=== PATIENT | male | born 1950 | race Caucasian/White ===

== ENCOUNTER → 2017-09-15 13:36 | Outpatient (CLI) | payer MEDICARE, OTHER, SELFPAY ==
--- NOTE | 2017-09-15 13:42 | US_ITS ---
STUDY: THYROID ULTRASOUND REASON FOR EXAM: Male, 67 years old. dysphagia TECHNIQUE: Ultrasound evaluation of the thyroid was performed with real-time and static hodges-scale imaging. COMPARISON: None. FINDINGS: RIGHT LOBE: The right lobe of the thyroid gland measures 5.2 x 1.2 x 2.1 cm. There is a homogeneous echotexture. There are no demonstrated solid, cystic or complex lesions. LEFT LOBE: The left lobe of the thyroid gland measures 5.1 x 1.1 x 1.3 cm. There is a homogeneous echotexture. There are no demonstrated solid, cystic or complex lesions. ISTHMUS: The isthmus measures 3 mm . US/Thyroid IMPRESSION: Normal ultrasound examination of the thyroid. Electronically Signed: Timur Torres MD at 23:34 EST , Service support ,
== END ==
PROVIDERS: Family Provider Internal Medicine; PCP Internal Medicine; Visit Provider Internal Medicine
DX: R13.10 Dysphagia, unspecified (principal)
CPT/HCPCS: 76536

== ENCOUNTER → 2017-09-23 08:03 | Outpatient (CLI) | payer MEDICARE, OTHER, SELFPAY ==
--- NOTE | 2017-09-23 08:07 | RAD_ITS ---
STUDY: X-RAY - ESOPHAGUS (BARIUM SWALLOW) WITH FLUOROSCOPY REASON FOR EXAM: Male, 67 years old. Dysphagia for solids. TECHNIQUE: 22 view(s) of the esophagus were obtained following swallowing of barium. FLUOROSCOPY TIME (if supplied): (0:52) minutes/seconds COMPARISON: None. FINDINGS: There is no demonstrated esophageal foreign body. There is no demonstrated stricture or mucosal abnormality. Normal gastroesophageal junction, without a demonstrated hiatal hernia. The patient ingested a 12 mm tablet of barium. There is transient holdup at the gastroesophageal junction. There is atherosclerotic calcification of the aortic arch with tortuosity of the descending aorta. Normal visualized pulmonary parenchyma. There are diffuse degenerative changes of the visualized thoracic spine. RAD/Esophagus Only IMPRESSION: Normal plain film x-ray examination (barium swallow) of the esophagus. Electronically Signed: Artie Gray MD at 10:36 EST Tel [phone], Service support ,
== END ==
PROVIDERS: Family Provider Internal Medicine; PCP Internal Medicine; Visit Provider Internal Medicine
DX: R13.10 Dysphagia, unspecified (principal)
CPT/HCPCS: 74220

== ENCOUNTER → 2017-10-03 10:52 | Outpatient (CLI) | payer MEDICARE, OTHER, SELFPAY ==
--- NOTE | 2017-10-03 10:59 | MRI_ITS ---
STUDY: MRI BRAIN WITH AND WITHOUT CONTRAST (ATTENTION INTERNAL AUDITORY CANALS - I.A.C.'s) REASON FOR EXAM: Male, 67 years old. Gradual hearing loss of the right ear x15 years which is described as almost complete hearing loss now. TECHNIQUE: Standardized multiplanar fat and water weighted pulse sequences were obtained. 10 ml of Gadavist contrast material was administered intravenously for the contrast portion of the examination. COMPARISON: None. FINDINGS: Normal bilateral temporal bones. Normal bilateral internal auditory canals. There is no demonstrated intracanalicular or cisternal vestibular schwannoma (acoustic neuroma). There is no enhancement of the bilateral VIIth or VIIIth cranial nerves. Normal bilateral cochlea, vestibules and semicircular canals. Normal size of the ventricles and extra-axial spaces for the patient's age. There are a limited number of small white matter hyperintensities, distributed throughout the deep white matter tracts of the cerebral hemispheres, consistent with mild chronic white matter ischemic changes. There is no evidence for recent intracranial ischemia or other cause of cytotoxic edema on diffusion weighted imaging (DWI). There is a prominent perivascular space involving the right basal nuclei (axial T2 series 5, image 11). There are smaller bilateral perivascular spaces involving the basal nuclei. Normal thalami. Normal flow voids within the major intracranial circulation suggesting patency by spin echo criteria. Normal venous enhancement. There is no enhancing intra-axial or extra-axial abnormality. There is no extra-axial fluid accumulation. Normal sella turcica, pituitary gland, infundibular stalk, optic chiasm and hypothalamus. Normal tectal plate and pineal gland. Normal midbrain, morales and medulla. Normal cerebellum. Normal basal cisterns. There are bilateral ocular lens implants with otherwise normal intraorbital contents. Normal visualized paranasal sinuses. Normal calvarium and skull base. Normal visualized soft tissue structures. Normal visualized upper cervical spine. MRI/Brain W/WO Contrast IMPRESSION: 1. Normal unenhanced and enhanced MRI of the bilateral internal auditory canals (I.A.C's). 2. Mild chronic white matter ischemic changes of the supratentorial brain. 3. Status post bilateral ocular lens implants. Electronically Signed: Daljit Garcia DO at 14:42 EDT Tel , Service support ,
== END ==
PROVIDERS: Family Provider Internal Medicine; PCP Internal Medicine; Visit Provider Otolaryngology
DX: H93.11 Tinnitus, right ear (principal)
CPT/HCPCS: 70553; A9585

== ENCOUNTER → 2017-10-14 09:23 | Outpatient (CLI) | payer MEDICARE, OTHER, SELFPAY ==
--- NOTE | 2017-10-14 09:26 | CDU_ITS ---
Reason For Study: stenosis Rt. Velocities/BP Lt. Velocities/BP Prox CCA 95.6/30.5 cm/sec. Prox CCA 114/37.5 cm/sec. Mid CCA 99.1/32.2 cm/sec. Mid CCA 107/42.2 cm/sec. Dist CCA 83.8/34.6 cm/sec. Dist CCA 97.3/35.2 cm/sec. Prox ICA 83.8/29.9 cm/sec. Prox ICA 64.5/15.2 cm/sec. Mid ICA 74.5/38.7 cm/sec. Mid ICA 82.1/32.2 cm/sec. Dist ICA 66.7/31.2 cm/sec. Dist ICA 99.1/44.0 cm/sec. Rt. ICA/CCA = .8. Lt. ICA/CCA = .9. Prox ECA 127/29.1 cm/sec. Prox ECA 79.7/24.6 cm/sec. Rt. Vert. 45.7/19.3 cm/sec. Lt. Vert. 52.2/23.2 cm/sec. Right Extracranial There is intimal thickening but no significant atherosclerotic plaque noted in the right common carotid artery. There is heterogeneous, irregular atherosclerotic plaque noted in the right internal carotid artery. There is intimal thickening but no significant atherosclerotic plaque noted in the right external carotid artery. Antegrade flow is noted in the right vertebral artery. Left Extracranial There is intimal thickening but no significant atherosclerotic plaque noted in the left common carotid artery. There is heterogeneous, irregular atherosclerotic plaque noted in the left internal carotid artery. There is intimal thickening but no significant atherosclerotic plaque noted in the left external carotid artery. Antegrade flow is noted in the left vertebral artery. Procedure Carotid Duplex [id number]. The exam was diagnostic. Exam performed in department. Interpretation Summary Mild (<50%) stenosis right extracranial internal carotid. Mild (<50%) stenosis left extracranial internal carotid. Flow within the vertebral arteries is antegrade bilaterally. Ordering Physician: Gertrudis Flowers Performed By: Terence Land RVT
== END ==
PROVIDERS: Family Provider Internal Medicine; PCP Internal Medicine; Visit Provider Internal Medicine
DX: I65.23 Occlusion and stenosis of bilateral carotid arteries (principal)
CPT/HCPCS: 93880

== ENCOUNTER → 2017-12-03 08:42 | Outpatient (CLI) | payer MEDICARE, OTHER, SELFPAY ==
[2017-12-03 10:24] LABS: Absolute Lymphocyte Count 1.52 X10^3/ul (0.83-4.51); Absolute Neutrophil Count 3.4 X10^3/uL (2.0-7.7); Basophil# 0.01 X10^3/uL; Basophil% 0.2 % (0-1); Eosinophil# 0.21 X10^3/uL; Eosinophils% 3.7 % (0-5); Hematocrit 41.6 % (40-54); Hemoglobin 13.9 g/dl (13.0-16.5); Lymphocyte # 1.52 X10^3/ul (4.0); Lymphocyte % 26.8 % (19-41); Mean Corp Hgb Conc 33.4 g/gl (32-36); Mean Corpuscular Hgb 30.3 pg (27.0-32.0); Mean Corpuscular Volume 90.8 fL (80-94); Mean Platelet Vol. 10.6 fl (6.2-12.0); Monocyte# 0.52 X10^3/uL; Monocyte% 9.2 % (0-10); Neutrophil # 3.41 X10^3/uL (2.7-7.7); Neutrophil % 59.9 % (47-70); Platelet Count 277 K/mm3 (150-450); RBC Distribution Width CV 13.3 % (11.6-14.6); RBC Distribution Width SD 43.5 fl (35.1-43.9); Red Blood Count 4.58 M/mm3 (4.6-6.2); White Blood Count 5.7 K/mm3 (4.4-11.0)
[2017-12-03 10:27] LABS: POSITIVE COUNT NO; POSITIVE DIFFERENTIAL NO; POSITIVE MORPHOLOGY NO
[2017-12-03 10:46] LABS: Microalbumin,Random Urine 5.8 mg/L (NO RANGE EST.); Microalbumin:Creatinine Ratio 4.8 mg/g CRE (<30 mg/g CRE)
[2017-12-03 11:03] LABS: ALB/GLOB Ratio 0.9 RATIO (0.9-2.4); AST(SGOT) 26 U/L (15-37); Alanine Aminotransfer ALT/SGPT 54 U/L (16-61); Albumin, Serum 3.6 g/dL (3.2-5.0); Alkaline Phosphatase 85 U/L (45-117); Amylase 138 U/L (25-115); Anion Gap 5 (5-15); BUN 23 mg/dL (7-18); BUN/Creat Ratio 18.7 RATIO (10-20); Calcium,Total 8.9 mg/dL (8.5-10.1); Chloride 109 mmol/L (98-107); Cholesterol 108 mg/dL (200); Creatinine, Serum 1.23 mg/dL (0.70-1.30); EST Glomerular Filtration Rate 62 mL/min (>60); Est Glom Filt Rate - Afr Amer 76 mL/min (>60); Globulin 3.8 g/dL (2.2-4.2); Glucose 101 mg/dL (74-106); High Density Lipoprotein 39 mg/dL; Lipase 216 U/L (73-393); PSA,Total - Annual Screen 1.39 ng/mL (0.00-4.00); Potassium 4.7 mmol/L (3.5-5.1); Protein, Total 7.4 g/dL (6.4-8.2); Sodium Level 140 mmol/L (136-145); Triglycerides 76 mg/dL; Very Low Density Lipoprotein 15 mg/dL (5-40)
[2017-12-03 11:53] LABS: Vitamin B12 599 pg/mL (211-911)
[2017-12-04 09:52] LABS: AFP, Tumor Marker 2.4 ng/mL (0.0-8.3); Hep C Antibodies <0.1 s/co ratio (0.0-0.9)
== END ==
PROVIDERS: Family Provider Internal Medicine; PCP Internal Medicine; Visit Provider Internal Medicine
DX: R20.9 Unspecified disturbances of skin sensation (principal); K76.0 Fatty (change of) liver, not elsewhere classified; E78.00 Pure hypercholesterolemia, unspecified; R73.09 Other abnormal glucose; R74.8 Abnormal levels of other serum enzymes; Z11.59 Encounter for screening for other viral diseases; Z12.5 Encounter for screening for malignant neoplasm of prostate
CPT/HCPCS: 36415; 80053; 80061; 82043; 82105; 82150; 82570; 82607; 83690; 84153; 85025; 86803; G0103

== ENCOUNTER → 2018-04-08 09:06 | Outpatient (CLI) | payer MEDICARE, OTHER, SELFPAY ==
[2018-04-08 10:37] LABS: Hemoglobin A1c 5.8 % (4.2-6.3)
[2018-04-08 11:05] LABS: ALB/GLOB Ratio 0.9 RATIO (0.9-2.4); AST(SGOT) 20 U/L (15-37); Alanine Aminotransfer ALT/SGPT 47 U/L (16-61); Albumin, Serum 3.6 g/dL (3.2-5.0); Alkaline Phosphatase 98 U/L (45-117); Anion Gap 9 (5-15); BUN 21 mg/dL (7-18); BUN/Creat Ratio 16.8 RATIO (10-20); Calcium,Total 9.2 mg/dL (8.5-10.1); Chloride 107 mmol/L (98-107); Cholesterol 102 mg/dL (200); Creatinine, Serum 1.25 mg/dL (0.70-1.30); EST Glomerular Filtration Rate 61 mL/min (>60); Est Glom Filt Rate - Afr Amer 74 mL/min (>60); Globulin 4.1 g/dL (2.2-4.2); Glucose 96 mg/dL (74-106); High Density Lipoprotein 37 mg/dL; Potassium 4.2 mmol/L (3.5-5.1); Protein, Total 7.7 g/dL (6.4-8.2); Sodium Level 138 mmol/L (136-145); Triglycerides 67 mg/dL; Very Low Density Lipoprotein 13 mg/dL (5-40)
== END ==
PROVIDERS: Family Provider Internal Medicine; PCP Internal Medicine; Visit Provider Internal Medicine
DX: I10 Essential (primary) hypertension (principal); E78.00 Pure hypercholesterolemia, unspecified; R73.09 Other abnormal glucose
CPT/HCPCS: 36415; 80053; 80061; 83036

== ENCOUNTER → 2018-09-21 08:35 | Outpatient (CLI) | payer MEDICARE, OTHER, SELFPAY ==
--- NOTE | 2018-09-21 08:42 | CDU_ITS ---
Reason For Study: Carotid stenosis Rt. Velocities/BP Lt. Velocities/BP Prox CCA 93.2/25.2 cm/sec. Prox CCA 113.0/31.1 cm/sec. Mid CCA 116.0/32.8 cm/sec. Mid CCA 105.0/27.0 cm/sec. Dist CCA 88.5/28.1 cm/sec. Dist CCA 93.2/28.1 cm/sec. Prox ICA 69.8/22.3 cm/sec. Prox ICA 73.9/25.8 cm/sec. Mid ICA 80.3/32.2 cm/sec. Mid ICA 68.6/28.1 cm/sec. Dist ICA 75.0/27.0 cm/sec. Dist ICA 92.6/34.0 cm/sec. Rt. ICA/CCA = .69. Lt. ICA/CCA = .88. Prox ECA 101.0/18.8 cm/sec. Prox ECA 80.9/19.9 cm/sec. Rt. Vert. 42.8/13.5 cm/sec. Lt. Vert. 46.9/17.0 cm/sec. Right Extracranial There is intimal thickening but no significant atherosclerotic plaque noted in the right common carotid artery. There is heterogeneous, irregular atherosclerotic plaque noted in the right internal carotid artery. There is no significant atherosclerotic plaque noted in the right external carotid artery. Antegrade flow is noted in the right vertebral artery. Left Extracranial There is intimal thickening but no significant atherosclerotic plaque noted in the left common carotid artery. There is heterogeneous, irregular atherosclerotic plaque noted in the left internal carotid artery. There is no significant atherosclerotic plaque noted in the left external carotid artery. Antegrade flow is noted in the left vertebral artery. Procedure Carotid Duplex [id number]. Exam performed in department. Interpretation Summary Mild (<50%) stenosis right extracranial internal carotid. Mild (<50%) stenosis left extracranial internal carotid. Flow within the vertebral arteries is antegrade bilaterally. Ordering Physician: Gertrudis Flowers Referring Physician: Gertrudis Flowers Performed By: Shannan Osullivan RVT
--- NOTE | 2018-09-21 09:02 | US_ITS ---
STUDY: ABDOMINAL ULTRASOUND - RIGHT UPPER QUADRANT REASON FOR VISIT: Male, 68 years old. Fatty liver. TECHNIQUE: Ultrasound evaluation of the right upper quadrant was performed with real-time and static hodges-scale imaging. TECHNICAL QUALITY: Adequate. COMPARISON: None. FINDINGS: Liver: The liver measures 15.6 cm. There is increased echogenicity consistent with fatty infiltration. The bile ducts are within normal limits. There is hepatic color flow. The direction of portal flow is hepatopetal. There is no demonstrated mass lesion. Gallbladder: Normal distended gallbladder. The gallbladder wall measures 2.2 mm. There is a negative sonographic Mittal's sign. There is no pericholecystic fluid. There are no gallstones. Common Bile Duct (C.B.D.): The common bile duct measures 3.3 mm. Pancreas: Normal size of the head, body and tail of the pancreas. There is normal echogenicity of the pancreas. There is no demonstrated pancreatic mass or cyst. Right Kidney: Normal size of the right kidney. The right kidney measures 10.3 cm. Normal renal cortex. The right cortex measures 1.3 cm. There is no demonstrated renal mass or cyst. There is no right hydronephrosis. US/Liver IMPRESSION: Normal right upper quadrant ultrasound examination. Electronically Signed: Dontrell Wright DO at 22:39 EST Tel [phone], Service support ,
== END ==
PROVIDERS: Family Provider Internal Medicine; PCP Internal Medicine; Referring Provider Internal Medicine; Visit Provider Internal Medicine
DX: I65.23 Occlusion and stenosis of bilateral carotid arteries (principal); K76.0 Fatty (change of) liver, not elsewhere classified
CPT/HCPCS: 76705; 93880

== ENCOUNTER → 2018-09-22 12:50 | Outpatient (CLI) | payer SELFPAY ==
--- NOTE | 2018-09-22 13:02 | CT_ITS ---
STUDY: CT CHEST WITHOUT CONTRAST REASON FOR EXAM: Male, 68 years old. Elevated cholesterol. Calcium scoring examination. Radiological over read examination. TECHNIQUE: Transaxial imaging was performed without the administration of intravenous contrast material. Individualized dose optimization techniques were used for this CT. COMPARISON: None. FINDINGS: Minimal increased linear markings in the posterior medial segment of the right lower lobe suggestive scarring. There is no demonstrated pleural abnormality. There are calcifications of the coronary arteries. There are multiple small lymph nodes within the mediastinum, which are normal in size and morphology most compatible with reactive lymph hyperplasia. Normal hilar regions. Normal unenhanced pulmonary arteries. There is atherosclerotic calcification of the aortic arch . There are multi-level degenerative changes of the thoracic spine. There is no demonstrated abnormality of the visualized upper abdomen. CT/Limited Chest CT w/CCTA IMPRESSION: Coronary artery calcification. Findings suggestive of mild scarring at the right lung base. Electronically Signed: Artie Gray, at 15:56 EST , Service support ,
[2018-09-22 13:36] VITALS: BP 124/69; PULSE 50; RESP 16; O2SAT 95; BMI 33.0
--- NOTE | 2018-09-22 15:12 | CA.SCORE ---
Calcium Scoring Date of Study:: 09/22/18 Coronary Calcium Scoring: Coronary calcium scoring. 68-year-old man with a history of hypertension. High-resolution computed tomographic imaging of the chest was performed on 09/22/2018 with particular attention paid to the coronary arteries. Images from the examination were analyzed for the presence and extent of coronary artery calcification using the coronary consultation quantification software. The patient tolerated the procedure well there were no complications. The results of the coronary calcification analysis are provided. Coronary artery Left main 9.9 Left anterior descending artery 183 Left circumflex artery 29 Right coronary artery 3 Total Agaston score to 25. The above has a percentile ranking of between 50 and 75%. The total calcium score suggest that there is moderate plaque burden with nonobstructive coronary disease likely.
== END ==
PROVIDERS: Family Provider Internal Medicine; PCP Internal Medicine; Referring Provider Internal Medicine; Visit Provider Internal Medicine
DX: E78.5 Hyperlipidemia, unspecified (principal)
CPT/HCPCS: 75571; 76380

== ENCOUNTER → 2018-12-10 10:36 | Outpatient (CLI) | payer MEDICARE, OTHER, SELFPAY ==
[2018-09-22 13:36] VITALS: BMI 33.0
[2018-12-10 12:43] LABS: Absolute Lymphocyte Count 1.47 X10^3/ul (0.83-4.51); Absolute Neutrophil Count 4.8 X10^3/uL (2.0-7.7); Basophil# 0.01 X10^3/uL; Basophil% 0.1 % (0-1); Eosinophil# 0.22 X10^3/uL; Eosinophils% 3.1 % (0-5); Hematocrit 42.7 % (40-54); Hemoglobin 14.6 g/dl (13.0-16.5); Lymphocyte # 1.47 X10^3/ul (4.0); Lymphocyte % 20.4 % (19-41); Mean Corp Hgb Conc 34.2 g/gl (32-36); Mean Corpuscular Hgb 30.4 pg (27.0-32.0); Mean Platelet Vol. 10.7 fl (6.2-12.0); Monocyte% 9.7 % (0-10); Neutrophil # 4.77 X10^3/uL (2.7-7.7); Neutrophil % 66.4 % (47-70); Platelet Count 304 K/mm3 (150-450); RBC Distribution Width CV 13.3 % (11.6-14.6); White Blood Count 7.2 K/mm3 (4.4-11.0)
[2018-12-10 12:50] LABS: AST(SGOT) 47 U/L (15-37); Alanine Aminotransfer ALT/SGPT 74 U/L (16-61); Albumin, Serum 3.8 g/dL (3.2-5.0); Alkaline Phosphatase 88 U/L (45-117); Anion Gap 5 (5-15); BUN 24 mg/dL (7-18); BUN/Creat Ratio 16.1 RATIO (10-20); Calcium,Total 9.2 mg/dL (8.5-10.1); Chloride 110 mmol/L (98-107); Cholesterol 131 mg/dL (200); Creatinine, Serum 1.49 mg/dL (0.70-1.30); EST Glomerular Filtration Rate 50 mL/min (>60); Est Glom Filt Rate - Afr Amer 60 mL/min (>60); Glucose 108 mg/dL (74-106); High Density Lipoprotein 42 mg/dL; PSA,Total - Annual Screen 1.58 ng/mL (0.00-4.00); Potassium 4.2 mmol/L (3.5-5.1); Protein, Total 7.8 g/dL (6.4-8.2); Sodium Level 137 mmol/L (136-145); Triglycerides 67 mg/dL; Very Low Density Lipoprotein 13 mg/dL (5-40)
[2018-12-10 12:56] LABS: Hemoglobin A1c 6.1 % (4.2-6.3)
[2018-12-10 13:02] LABS: POSITIVE COUNT NO; POSITIVE DIFFERENTIAL NO; POSITIVE MORPHOLOGY NO
== END ==
PROVIDERS: Family Provider Internal Medicine; PCP Internal Medicine; Referring Provider Internal Medicine; Visit Provider Internal Medicine
DX: I10 Essential (primary) hypertension (principal); E78.00 Pure hypercholesterolemia, unspecified; R73.09 Other abnormal glucose; Z12.5 Encounter for screening for malignant neoplasm of prostate
CPT/HCPCS: 36415; 80053; 80061; 83036; 84153; 85025; G0103

== ENCOUNTER → 2018-12-28 06:28 | Outpatient (CLI) | payer MEDICARE, OTHER, SELFPAY ==
[2018-09-22 13:36] VITALS: BMI 33.0
--- NOTE | 2018-12-28 14:20 | STRESSREP ---
Stress Test Report Exercise myocardial perfusion stress test. 68-year-old man with a history of chest pain. Stress protocol: Resting EKG demonstrates normal sinus rhythm with a rate of 61 bpm normal intervals are noted resting blood pressure 140/88 mmHg. The patient exercised according to regular Calixto protocol for total duration of 9 minutes completing stage III of the Calixto protocol the maximum heart rate attained was 134 bpm which was 87% of maximum predicted heart rate the maximum workload was 10.1 metabolic equivalents. Patient maintained sinus rhythm throughout the recording. At rest there were no ST or T wave changes noted suggest ischemia peak exercise upsloping ST changes only were noted with no meet the criteria for ischemia. No clinical angina was noted. The resting blood pressures 140/88 with a peak blood pressure 184/72 mmHg. Rate pressure product was 24,600. Myocardial perfusion protocol. 14.7 mCi of technetium 99m sestamibi was injected at rest. The patient exercised according to regular Calixto protocol. At peak exercise 43.9 mCi of technetium 99m sestamibi was injected stress images were obtained stress and rest images were reconstructed and compared in the short axis vertical and horizontal long hospital. Gated images were also obtained per Perfusion SPECT analysis: Review of the stress images demonstrate normal uptake of tracer noted in all areas of myocardium. The resting images similarly demonstrate normal uptake of tracer noted in all areas of myocardium. No areas of reversibility are noted suggest ischemia Gated SPECT analysis: The gated ejection fraction is noted to be 67%. Conclusion: Normal exercise myocardial perfusion stress test at a high workload. No clinical angina noted. Preserved ejection fraction.
== END ==
PROVIDERS: Family Provider Internal Medicine; PCP Internal Medicine; Referring Provider Internal Medicine; Visit Provider Internal Medicine
DX: R06.09 Other forms of dyspnea (principal)
CPT/HCPCS: 78452; 93017; A9500; A4216

== ENCOUNTER → 2019-03-17 08:52 | Outpatient (CLI) | payer MEDICARE, OTHER, SELFPAY ==
[2018-09-22 13:36] VITALS: BMI 33.0
[2019-03-17 09:00] LABS: Bacteria 0 SEEN /hpf (None Seen); Mucous, Urine 0 SEEN /hpf (<or=2+); Red Blood Cells-Urine 0 SEEN /hpf (0-5); Squamous Epithelial Cells - UA 0 SEEN /hpf (0-5); White Blood Cells 0 SEEN /hpf (0-5)
[2019-03-17 09:59] LABS: Color, Urine Yellow (Yellow); Glucose, Dipstick Normal (Normal); Ketone-Dipstick Negative (Negative); Leukocyte Esterase-Dipstick Negative /ul (Negative); Nitrite-Dipstick Negative (Negative); Occult Blood-Urine Negative /ul (Negative); Protein-Dipstick Negative (Negative); Specific Gravity, Urine 1.015 (1.002-1.030); Urine Bilirubin Dipstick Negative (Negative); Urine Clarity Clear (Clear); Urine Urobilinogen Normal (Normal)
[2019-03-17 10:08] LABS: Absolute Lymphocyte Count 1.55 X10^3/uL (0.83-4.51); Absolute Neutrophil Count 3.3 X10^3/uL (2.0-7.7); Basophil# 0.04 X10^3/uL; Basophil% 0.7 % (0-1); Eosinophil# 0.22 X10^3/uL; Eosinophils% 3.9 % (0-5); Hematocrit 41.8 % (40-54); Hemoglobin 14.2 g/dL (13.0-16.5); Lymphocyte # 1.55 X10^3/ul (4.0); Lymphocyte % 27.8 % (19-41); Mean Corpuscular Hgb 31.3 pg (27.0-32.0); Mean Corpuscular Volume 92.3 fL (80-94); Mean Platelet Vol. 10.5 fl (6.2-12.0); Monocyte# 0.45 X10^3/uL; Monocyte% 8.1 % (0-10); NRBC Flagged by Analyzer 0 % (0-5); Neutrophil # 3.31 X10^3/uL (2.7-7.7); Neutrophil % 59.3 % (47-70); Platelet Count 253 K/mm3 (150-450); RBC Distribution Width CV 12.8 % (11.6-14.6); RBC Distribution Width SD 43.8 fl (35.1-43.9); Red Blood Count 4.53 M/mm3 (4.6-6.2); White Blood Count 5.6 K/mm3 (4.4-11.0)
[2019-03-17 10:19] LABS: AST(SGOT) 38 U/L (15-37); Alanine Aminotransfer ALT/SGPT 71 U/L (16-61); Albumin, Serum 3.6 g/dL (3.2-5.0); Alkaline Phosphatase 80 U/L (45-117); Anion Gap 7 (5-15); BUN 18 mg/dL (7-18); BUN/Creat Ratio 14.5 RATIO (10-20); Calcium,Total 8.7 mg/dL (8.5-10.1); Chloride 111 mmol/L (98-107); Cholesterol 110 mg/dL (200); Creatinine, Serum 1.24 mg/dL (0.70-1.30); EST Glomerular Filtration Rate 62 mL/min (>60); Est Glom Filt Rate - Afr Amer 75 mL/min (>60); Globulin 3.5 g/dL (2.2-4.2); Glucose 103 mg/dL (74-106); High Density Lipoprotein 39 mg/dL; Potassium 4.6 mmol/L (3.5-5.1); Protein, Total 7.1 g/dL (6.4-8.2); Sodium Level 142 mmol/L (136-145); Triglycerides 54 mg/dL; Very Low Density Lipoprotein 11 mg/dL (5-40)
[2019-03-17 10:23] LABS: Hemoglobin A1c 5.9 % (4.2-6.3)
[2019-03-18 13:05] LABS: AFP, Tumor Marker 1.8 ng/mL (0.0-8.3)
== END ==
PROVIDERS: Family Provider Internal Medicine; PCP Internal Medicine; Referring Provider Internal Medicine; Visit Provider Internal Medicine
DX: R73.09 Other abnormal glucose (principal); E78.00 Pure hypercholesterolemia, unspecified; I10 Essential (primary) hypertension; K76.0 Fatty (change of) liver, not elsewhere classified
CPT/HCPCS: 36415; 80053; 80061; 81001; 82105; 83036; 85025

== ENCOUNTER → 2019-05-21 14:41 | Outpatient (CLI) | payer MEDICARE, OTHER, SELFPAY ==
[2018-09-22 13:36] VITALS: BMI 33.0
--- NOTE | 2019-05-21 14:56 | CT_ITS ---
STUDY: CT BRAIN WITH AND WITHOUT CONTRAST REASON FOR EXAM: Male, 69 years old. Headache for one week. RADIATION DOSAGE (If Supplied By Facility): CTDIvol = ( 44.99 ) mGy, DLP = ( 1682.21 ) mGycm TECHNIQUE: Transaxial CT imaging of the brain was performed pre and post contrast administration. The examination was performed with intravenous administration of IV Isovue 370 50. Individualized dose optimization techniques were used for this CT. COMPARISON: MRI of the brain, October 03, 2017. FINDINGS: Normal soft tissue structures. Normal calvarium. Normal size ventricles and extra-axial spaces for the patient's age. Normal white matter tracts of the cerebral hemispheres. Normal basal ganglia and thalami. Normal brainstem. Normal cerebellum. There is no intracranial hemorrhage. There are no findings of an acute ischemic infarction. There is no evidence for abnormal enhancement. The visualized vasculature appears grossly normal. Normal visualized paranasal sinuses. CT/Brain/Head W/WO Contrast IMPRESSION: Normal unenhanced and enhanced CT scan of the brain. Electronically Signed: Dontrell Wright DO at 17:15 EDT Tel [phone], Service support ,
[2019-05-21 15:01] LABS: Absolute Lymphocyte Count 1.83 X10^3/uL (0.83-4.51); Absolute Neutrophil Count 7.9 X10^3/uL (2.0-7.7); Basophil# 0.03 X10^3/uL; Basophil% 0.3 % (0-1); Eosinophil# 0.22 X10^3/uL; Hematocrit 44.4 % (40-54); Hemoglobin 15.2 g/dL (13.0-16.5); Lymphocyte # 1.83 X10^3/ul (4.0); Lymphocyte % 16.7 % (19-41); Mean Corp Hgb Conc 34.2 g/dL (32-36); Mean Corpuscular Volume 90.6 fL (80-94); Mean Platelet Vol. 10.2 fl (6.2-12.0); Monocyte# 0.96 X10^3/uL; Monocyte% 8.7 % (0-10); NRBC Flagged by Analyzer 0 % (0-5); Neutrophil # 7.92 X10^3/uL (2.7-7.7); Platelet Count 282 K/mm3 (150-450); RBC Distribution Width CV 12.7 % (11.6-14.6); RBC Distribution Width SD 41.4 fl (35.1-43.9)
[2019-05-21 15:21] LABS: CREATININE FINGERSTICK 1.1 mg/dL (0.70-1.30)
[2019-05-21 15:23] LABS: AST(SGOT) 30 U/L (15-37); Alanine Aminotransfer ALT/SGPT 64 U/L (16-61); Alkaline Phosphatase 82 U/L (45-117); Anion Gap 8 (5-15); BUN 20 mg/dL (7-18); Calcium,Total 9.5 mg/dL (8.5-10.1); Chloride 106 mmol/L (98-107); Creatinine, Serum 1.25 mg/dL (0.70-1.30); EST Glomerular Filtration Rate 61 mL/min (>60); Est Glom Filt Rate - Afr Amer 74 mL/min (>60); Globulin 3.9 g/dL (2.2-4.2); Glucose 90 mg/dL (74-106); Potassium 4.2 mmol/L (3.5-5.1); Protein, Total 7.9 g/dL (6.4-8.2); Sodium Level 136 mmol/L (136-145); Thyroid Stim Hormone (TSH) 2.35 uIU/mL (0.358-3.74)
== END ==
PROVIDERS: Family Provider Internal Medicine; PCP Internal Medicine; Referring Provider Internal Medicine; Visit Provider Internal Medicine
DX: R51 Headache (principal); M54.2 Cervicalgia; I10 Essential (primary) hypertension
CPT/HCPCS: 36415; 70470; 80053; 84443; 84484; 85025; Q9967

== ENCOUNTER → 2019-05-31 08:42 | Outpatient (CLI) | payer MEDICARE, OTHER, SELFPAY ==
[2018-09-22 13:36] VITALS: BMI 33.0
--- NOTE | 2019-05-31 08:58 | RDU_ITS ---
Reason For Study: HTN Right Renal Artery Left Renal Artery Right renal artery ostium 101/20 Left renal artery ostium 117/27 RSV/EDV. PSV/EDV. Right renal artery proximal 104/20 Left renal artery proximal PSV/EDV PSV/EDV. 130/38 . Right renal artery mid 137/33 Left renal artery mid 147/41 PSV/EDV. PSV/EDV . Right renal artery distal 105/22 Left renal artery distal 133/41 PSV/EDV. PSV/EDV. Right Renal Parenchyma Left Renal Parenchyma Upper Pole Medula 31/11 PSV/EDV. Left upper pole medulla 34/12 Right upper pole medulla EDR 0.35 . PSV/EDV . Right upper pole medulla R.I. Left upper pole medulla EDR 0.35 . 0.63 . Left upper pole medulla R.I. 0.65 . Upper Dar Cortx 24/9 PSV/EDV. UP Cortex 26/11 PSV/EDV. Right upper pole cortex EDR 0.38 . Left upper pole cortex EDR 0.42 . Right upper pole cortex R.I. 0.62 . Left upper pole cortex R.I. 0.59 . Right lower Pole medulla 23/8 Left lower Pole medulla 26/11 PSV/EDV . PSV/EDV . Right lower pole medulla EDR 0.35 . Left lower pole medulla EDR 0.42 . Right lower pole medulla R.I. Left lower pole medulla R.I. 0.58 . 0.64 . Lower Pole Cortx 23/9 PSV/EDV. Lower Pole Cortex 26/8 PSV/EDV. Left lower pole cortex EDR 0.39 . Right lower pole cortex EDR 0.31 . Left lower pole cortex R.I. 0.61 . Right lower pole cortex R.I. 0.70 . Left Renal Hilar Right Renal Hilar LT Hilar avg 94/27 PSV/EDV . Right Hilar avg 90/22 PSV/EDV. Left hilar acceleration time 70 Right hilar acceleration time 40 m/sec. m/sec. Left Renal Dimensions Right Renal Dimensions Left kidney size 10.49 cm . Right kidney size 10.52 cm . Left cortical dimension 0.98 cm . Right cortical dimension 1.0 cm . Aorta Proximal abdominal aorta 2.03cm x 2.03 cm . Proximal abdominal aorta peak systolic velocity is 102 cm/sec . Distal abdominal aorta 1.61cm x 1.69 cm . Distal abdominal aorta peak systolic velocity is 111 cm/sec . Interpretation Summary Normal aorta 2.03 x 2.03 0-59% stenosis bilateral renal arteries Right kidney length 10.5 cm Left kidney length 10.5 cm Normal bilateral renal resistivity indices Ordering Physician: Gertrudis Flowers Referring Physician: Gertrudis Flowers Performed By: Bárbara Spangler, PA, RVT
--- NOTE | 2019-05-31 09:18 | MRI_ITS ---
STUDY: MRI BRAIN WITH AND WITHOUT CONTRAST REASON FOR EXAM: Male, 69 years old. HEADACHE,, CHRONIC HEARING LOSS. TECHNIQUE: Standardized multiplanar fat and water weighted pulse sequences were obtained. IV Dotarem 20 was administered for the contrast portion of the examination. COMPARISON: October 03, 2017 FINDINGS: Normal size of the ventricles and extra-axial spaces for the patient's age. There are multiple white matter hyperintensities, distributed throughout the deep white matter tracts of the cerebral hemispheres, consistent with mild chronic white matter ischemic changes. Normal bilateral basal ganglia. Normal thalami. There is no extra-axial fluid accumulation. Normal flow voids within the major intracranial circulation suggesting patency by spin echo criteria. Normal venous enhancement. There is no enhancing intra-axial or extra-axial abnormality. Normal sella turcica, pituitary gland, infundibular stalk, optic chiasm and hypothalamus. Normal tectal plate and pineal gland. Normal midbrain, morales and medulla. Normal cerebellum. Normal basal cisterns. Normal bilateral temporal bones. Normal bilateral internal auditory canals. No demonstrated orbital abnormality, within the constraints of a routine brain study. MRI/Brain W/WO Contrast IMPRESSION: No acute intracranial abnormality or masses. Mild chronic microvascular ischemic changes. Electronically Signed: Edith Drake MD at 8:06 EST Tel , Service support ,
== END ==
PROVIDERS: Family Provider Internal Medicine; PCP Internal Medicine; Referring Provider Internal Medicine; Visit Provider Internal Medicine
DX: I10 Essential (primary) hypertension (principal); R51 Headache
CPT/HCPCS: 70553; 93975; A9575

== ENCOUNTER → 2019-06-22 09:04 | Outpatient (CLI) | payer MEDICARE, OTHER, SELFPAY ==
[2018-09-22 13:36] VITALS: BMI 33.0
[2019-06-22 12:49] LABS: Absolute Lymphocyte Count 2.16 X10^3/uL (0.83-4.51); Absolute Neutrophil Count 4.4 X10^3/uL (2.0-7.7); Basophil# 0.04 X10^3/uL; Basophil% 0.5 % (0-1); Eosinophil# 0.24 X10^3/uL; Eosinophils% 3.2 % (0-5); Hematocrit 43.9 % (40-54); Hemoglobin 14.7 g/dL (13.0-16.5); Lymphocyte # 2.16 X10^3/ul (4.0); Mean Corp Hgb Conc 33.5 g/dL (32-36); Mean Corpuscular Hgb 30.9 pg (27.0-32.0); Mean Corpuscular Volume 92.2 fL (80-94); Mean Platelet Vol. 10.9 fl (6.2-12.0); Monocyte# 0.58 X10^3/uL; Monocyte% 7.8 % (0-10); NRBC Flagged by Analyzer 0 % (0-5); Neutrophil # 4.43 X10^3/uL (2.7-7.7); Neutrophil % 59.4 % (47-70); Platelet Count 248 K/mm3 (150-450); RBC Distribution Width CV 12.7 % (11.6-14.6); Red Blood Count 4.76 M/mm3 (4.6-6.2); White Blood Count 7.5 K/mm3 (4.4-11.0)
[2019-06-22 12:51] LABS: Microalbumin,Random Urine 20.8 mg/L (NO RANGE EST.); Microalbumin:Creatinine Ratio 11.6 mg/g CRE (<30 mg/g CRE)
[2019-06-22 12:56] LABS: ALB/GLOB Ratio 0.9 RATIO (0.9-2.4); AST(SGOT) 45 U/L (15-37); Alanine Aminotransfer ALT/SGPT 92 U/L (16-61); Albumin, Serum 3.7 g/dL (3.2-5.0); Alkaline Phosphatase 88 U/L (45-117); Anion Gap 3 (5-15); BUN 18 mg/dL (7-18); BUN/Creat Ratio 14.5 RATIO (10-20); Calcium,Total 8.9 mg/dL (8.5-10.1); Chloride 106 mmol/L (98-107); Cholesterol 123 mg/dL (200); Creatinine, Serum 1.24 mg/dL (0.70-1.30); EST Glomerular Filtration Rate 62 mL/min (>60); Est Glom Filt Rate - Afr Amer 75 mL/min (>60); Globulin 3.9 g/dL (2.2-4.2); Glucose 94 mg/dL (74-106); High Density Lipoprotein 40 mg/dL; Potassium 4.4 mmol/L (3.5-5.1); Protein, Total 7.6 g/dL (6.4-8.2); Sodium Level 138 mmol/L (136-145); Triglycerides 70 mg/dL; Very Low Density Lipoprotein 14 mg/dL (5-40)
[2019-06-22 12:57] LABS: Hemoglobin A1c 6.1 % (4.2-6.3)
== END ==
PROVIDERS: Family Provider Internal Medicine; PCP Internal Medicine; Referring Provider Internal Medicine; Visit Provider Internal Medicine
DX: E78.00 Pure hypercholesterolemia, unspecified (principal); I10 Essential (primary) hypertension; R73.09 Other abnormal glucose
CPT/HCPCS: 36415; 80053; 80061; 82043; 82570; 83036; 85025

== ENCOUNTER → 2020-01-11 10:14 | Outpatient (CLI) | payer MEDICARE, OTHER, SELFPAY ==
[2018-09-22 13:36] VITALS: BMI 33.0
[2020-01-11 10:24] LABS: Bacteria 0 SEEN /hpf (None Seen); Mucous, Urine 0 SEEN /hpf (<or=2+); Red Blood Cells-Urine 0 SEEN /hpf (0-5); Squamous Epithelial Cells - UA 0 SEEN /hpf (0-5); White Blood Cells 0 SEEN /hpf (0-5)
[2020-01-11 12:44] LABS: Absolute Lymphocyte Count 2.21 X10^3/uL (0.83-4.51); Basophil# 0.03 X10^3/uL; Basophil% 0.4 % (0-1); Eosinophil# 0.25 X10^3/uL; Eosinophils% 3.5 % (0-5); Hematocrit 40.9 % (40-54); Hemoglobin 13.8 g/dL (13.0-16.5); Lymphocyte # 2.21 X10^3/ul (4.0); Lymphocyte % 30.7 % (19-41); Mean Corp Hgb Conc 33.7 g/dL (32-36); Mean Corpuscular Volume 91.9 fL (80-94); Mean Platelet Vol. 10.4 fl (6.2-12.0); Monocyte# 0.65 X10^3/uL; NRBC Flagged by Analyzer 0 % (0-5); Neutrophil # 4.03 X10^3/uL (2.7-7.7); Neutrophil % 56.1 % (47-70); Platelet Count 345 K/mm3 (150-450); RBC Distribution Width CV 12.7 % (11.6-14.6); Red Blood Count 4.45 M/mm3 (4.6-6.2); White Blood Count 7.2 K/mm3 (4.4-11.0)
[2020-01-11 12:46] LABS: Color, Urine Yellow (Yellow); Glucose, Dipstick Normal (Normal); Ketone-Dipstick Negative (Negative); Leukocyte Esterase-Dipstick Negative /ul (Negative); Nitrite-Dipstick Negative (Negative); Occult Blood-Urine Negative /ul (Negative); Protein-Dipstick Negative (Negative); Specific Gravity, Urine 1.015 (1.002-1.030); Urine Bilirubin Dipstick Negative (Negative); Urine Clarity Clear (Clear); Urine Urobilinogen Normal (Normal)
[2020-01-11 13:03] LABS: Hemoglobin A1c 6.3 % (3.8-5.6)
[2020-01-11 13:06] LABS: ALB/GLOB Ratio 0.9 RATIO (0.9-2.4); AST(SGOT) 32 U/L (15-37); Alanine Aminotransfer ALT/SGPT 71 U/L (16-61); Albumin, Serum 3.9 g/dL (3.2-5.0); Alkaline Phosphatase 92 U/L (45-117); Anion Gap 8 (5-15); BUN 30 mg/dL (7-18); BUN/Creat Ratio 19.2 RATIO (10-20); Calcium,Total 9.6 mg/dL (8.5-10.1); Chloride 103 mmol/L (98-107); Cholesterol 112 mg/dL (200); Creatinine, Serum 1.56 mg/dL (0.70-1.30); EST Glomerular Filtration Rate 47 mL/min (>60); Est Glom Filt Rate - Afr Amer 57 mL/min (>60); Globulin 4.2 g/dL (2.2-4.2); Glucose 113 mg/dL (74-106); High Density Lipoprotein 38 mg/dL; PSA,Total - Annual Screen 2.29 ng/mL (0.00-4.00); Potassium 4.4 mmol/L (3.5-5.1); Protein, Total 8.1 g/dL (6.4-8.2); Sodium Level 135 mmol/L (136-145); Triglycerides 86 mg/dL; Very Low Density Lipoprotein 17 mg/dL (5-40)
[2020-01-11 13:07] LABS: Microalbumin,Random Urine 9.5 mg/L (NO RANGE EST.); Microalbumin:Creatinine Ratio 6.6 mg/g CRE (<30 mg/g CRE)
[2020-01-12 06:19] LABS: AFP, Tumor Marker 2.1 ng/mL (0.0-8.3)
== END ==
PROVIDERS: PCP Internal Medicine; Referring Provider Internal Medicine; Visit Provider Internal Medicine
DX: R73.09 Other abnormal glucose (principal); K76.0 Fatty (change of) liver, not elsewhere classified; E78.00 Pure hypercholesterolemia, unspecified; I10 Essential (primary) hypertension; Z12.5 Encounter for screening for malignant neoplasm of prostate
CPT/HCPCS: 36415; 80053; 80061; 81001; 82043; 82105; 82570; 83036; 84153; 85025; G0103

== ENCOUNTER → 2020-01-31 08:06 | Outpatient (CLI) | payer MEDICARE, OTHER, SELFPAY ==
[2018-09-22 13:36] VITALS: BMI 33.0
--- NOTE | 2020-01-31 08:09 | US_ITS ---
STUDY: ABDOMINAL ULTRASOUND - RIGHT UPPER QUADRANT REASON FOR VISIT: Male, 69 years old FATTY LIVER TECHNIQUE: Ultrasound evaluation of the right upper quadrant was performed with real-time and static hodges-scale imaging. TECHNICAL QUALITY: Adequate. COMPARISON: Comparison is made with prior sonogram dated September 21, 2018. FINDINGS: Liver: The liver measures 16.5 cm. There is increased echogenicity consistent with fatty infiltration. The bile ducts are within normal limits. There is hepatic color flow. The direction of portal flow is hepatopetal. There is no demonstrated mass lesion. Gallbladder: Normal distended gallbladder. The gallbladder wall measures 2.5 mm. There is a negative sonographic Mittal''s sign. There is no pericholecystic fluid. There are no gallstones. Common Bile Duct (C.B.D.): The common bile duct measures 3.9 mm. Pancreas: Normal size of the head, body and tail of the pancreas. There is increased echogenicity of the pancreas. There is no demonstrated pancreatic mass or cyst. Right Kidney: Normal size of the right kidney. The right kidney measures 10.3 cm x 5.6 cm x 5.2 cm. Normal renal cortex. The right cortex measures 1.6 cm. There is no demonstrated renal mass or cyst. There is no right hydronephrosis. US/Liver IMPRESSION: Fatty infiltration of the liver. Electronically Signed: Artie Gray, at 12:18 EDT , Service support ,
--- NOTE | 2020-01-31 08:53 | CDU_ITS ---
Reason For Study: STENOSIS Rt. Velocities/BP Lt. Velocities/BP Prox CCA 82/25 cm/sec. Prox CCA 124/38 cm/sec. Mid CCA 91/29 cm/sec. Mid CCA 117/36 cm/sec. Dist CCA 82/27 cm/sec. Dist CCA 88/27 cm/sec. Prox ICA 60/22 cm/sec. Prox ICA 58/14 cm/sec. Mid ICA 60/25 cm/sec. Mid ICA 80/40 cm/sec. Dist ICA 66/29 cm/sec. Dist ICA 58/25 cm/sec. Rt. ICA/CCA = .7. Lt. ICA/CCA = .6. Prox ECA 71/14 cm/sec. Prox ECA 55/13 cm/sec. Rt. Vert. 35/13 cm/sec. Lt. Vert. 44/16 cm/sec. Right Extracranial There is homogeneous, smooth atherosclerotic plaque noted in the right common carotid artery. There is homogeneous, smooth atherosclerotic plaque noted in the right internal carotid artery. There is homogeneous, smooth atherosclerotic plaque noted in the right external carotid artery. Antegrade flow is noted in the right vertebral artery. There is heterogeneous, irregular atherosclerotic plaque noted in the left bulb. Left Extracranial There is homogeneous, smooth atherosclerotic plaque noted in the left common carotid artery. There is homogeneous, smooth atherosclerotic plaque noted in the left internal carotid artery. There is no significant atherosclerotic plaque noted in the left external carotid artery. Antegrade flow is noted in the left vertebral artery. There is heterogeneous, irregular atherosclerotic plaque noted in the left bulb. Procedure Carotid Duplex [id number]. Exam performed in department. Interpretation Summary Mild (<50%) stenosis right extracranial internal carotid. Mild (<50%) stenosis left extracranial internal carotid. Flow within the vertebral arteries is antegrade bilaterally. Heterogeneous, irregular atherosclerotic plaque is noted in the carotid bulbs bilaterally, which does not appear to be hemodynamically significant. Ordering Physician: Gertrudis Flowers Referring Physician: Gertrudis Flowers Performed By: Neha Tracy, PA, RVT
== END ==
PROVIDERS: PCP Internal Medicine; Referring Provider Internal Medicine; Visit Provider Internal Medicine
DX: I65.23 Occlusion and stenosis of bilateral carotid arteries (principal); K76.0 Fatty (change of) liver, not elsewhere classified
CPT/HCPCS: 76705; 93880

== ENCOUNTER → 2020-03-23 09:01 | Outpatient (CLI) | payer MEDICARE, OTHER, SELFPAY ==
[2018-09-22 13:36] VITALS: BMI 33.0
[2020-03-23 09:55] LABS: Absolute Lymphocyte Count 1.72 X10^3/uL (0.83-4.51); Absolute Neutrophil Count 4.5 X10^3/uL (2.0-7.7); Basophil# 0.03 X10^3/uL; Basophil% 0.4 % (0-1); Eosinophil# 0.33 X10^3/uL; Eosinophils% 4.6 % (0-5); Hematocrit 39.7 % (40-54); Hemoglobin 13.4 g/dL (13.0-16.5); Lymphocyte # 1.72 X10^3/ul (4.0); Lymphocyte % 23.8 % (19-41); Mean Corp Hgb Conc 33.8 g/dL (32-36); Mean Corpuscular Volume 91.9 fL (80-94); Monocyte# 0.62 X10^3/uL; Monocyte% 8.6 % (0-10); NRBC Flagged by Analyzer 0 % (0-5); Neutrophil # 4.52 X10^3/uL (2.7-7.7); Neutrophil % 62.3 % (47-70); Platelet Count 296 K/mm3 (150-450); RBC Distribution Width CV 13.2 % (11.6-14.6); Red Blood Count 4.32 M/mm3 (4.6-6.2); White Blood Count 7.2 K/mm3 (4.4-11.0)
[2020-03-23 10:21] LABS: AST(SGOT) 28 U/L (15-37); Alanine Aminotransfer ALT/SGPT 53 U/L (16-61); Albumin, Serum 3.8 g/dL (3.2-5.0); Alkaline Phosphatase 88 U/L (45-117); Anion Gap 5 (5-15); BUN 31 mg/dL (7-18); BUN/Creat Ratio 19.1 RATIO (10-20); Calcium,Total 9.3 mg/dL (8.5-10.1); Chloride 106 mmol/L (98-107); Cholesterol 112 mg/dL (200); Creatinine, Serum 1.62 mg/dL (0.70-1.30); EST Glomerular Filtration Rate 45 mL/min (>60); Est Glom Filt Rate - Afr Amer 55 mL/min (>60); Glucose 103 mg/dL (74-106); High Density Lipoprotein 36 mg/dL; Potassium 4.4 mmol/L (3.5-5.1); Protein, Total 7.8 g/dL (6.4-8.2); Sodium Level 138 mmol/L (136-145); Triglycerides 60 mg/dL; Very Low Density Lipoprotein 12 mg/dL (5-40)
[2020-03-23 10:25] LABS: Hemoglobin A1c 6.1 % (3.8-5.6)
== END ==
PROVIDERS: PCP Internal Medicine; Referring Provider Internal Medicine; Visit Provider Internal Medicine
DX: R73.09 Other abnormal glucose (principal); E78.00 Pure hypercholesterolemia, unspecified; I10 Essential (primary) hypertension
CPT/HCPCS: 36415; 80053; 80061; 83036; 85025

== ENCOUNTER 2020-09-23 15:57 | Inpatient (IN) | payer MEDICARE, OTHER, SELFPAY ==
[2018-09-22 13:36] VITALS: BMI 33.0
[2020-09-23] VITALS (9 sets, daily range): BP systolic 128–146; BP diastolic 75–96; PULSE 68–99; RESP 14–17; TEMP 36.2–36.6; O2SAT 96–99; BMI 35.4; BMI 34.8
--- NOTE | 2020-09-23 16:16 | EKG12_ITS ---
Test Reason : SOB Blood Pressure : / mmHG Vent. Rate : 099 BPM Atrial Rate : 241 BPM P-R Int : 000 ms QRS Dur : 090 ms QT Int : 326 ms P-R-T Axes : 000 078 007 degrees QTc Int : 418 ms Atrial fibrillation Abnormal ECG Confirmed by GEORGIA SALVADOR, LOKESH ([id number]), medical transcription editor CORA LOZANO ([id number]) on 09/26/2020 12:21:05 PM Referred By: BERYL Confirmed By:LOKESH HO MD
--- NOTE | 2020-09-23 16:17 | ED.VISSUMM ---
- ER Visit Summary Date of Service: 09/23/20 Chief Complaint: Shortness of breath History of Present Illness: The patient is a 70 M history of type 2 diabetes, hypertension, high cholesterol, glaucoma need of PE 15 years ago but has not had any since. He has had no recent travel, surgery or immobilization. He is on no blood thinners besides aspirin. Patient states he felt fine last several days. Today he was walking and started having a coughing spell and felt like there was something blocking off his airway. He coughed up some green phlegm. Said it resolved. He had a second coughing spell where he felt short of breath again. Currently he denies being short of breath. His pulse ox is 97% on room air sitting in the room. He denies any chest pain. He denies any fever. He denies any hemoptysis. He denies any leg pain or swelling. Said he has felt very well the last several days. Physical Examination: No acute distress. Sitting upright in bed. Vital signs are stable afebrile. His pulse ox from standing in her room is 96 to 97% on room air no hypoxia. H EENT exam unremarkable. Moist mucous membranes. Posterior pharynx unremarkable. No trouble breathing or swallowing. No stridor or drooling. Neck nontender no lymphadenopathy. No JVD. Lungs clear to auscultation bilaterally. He is not coughing at this time. Heart regular rate and rhythm rate about 70 no murmur. Chest were nontender. Abdomen soft nontender. Patient moving all 4 extremities. Calves are nontender without edema or cords. Neurologically is awake and alert with no focal motor deficits. Skin and back are unremarkable. Test Results: Chest x-ray 1 view interpreted by myself and the radiologist shows no acute abnormality. Normal cardiac silhouette no infiltrate. CBC normal white count of 10. Hemoglobin 15. No bands. Chemistries unremarkable except creatinine of 1.7 previously was 1.6. Normal gap. Troponin normal. EKG shows A. fib rate at 99 no acute signs of FL or ischemia. I discussed this with the patient he does not recall any prior history of A. fib. A prior EKG shows a sinus rhythm in 2017. Emergency Department Course and Treatment: Older male transient shortness of breath with coughing. Exam is currently benign. Currently is asymptomatic. He will undergo cardiac work-up. Clinically this did not appear to be a PE. It really does not sound cardiac. It sounds more like he had partial obstruction from phlegm when he was coughing it out. But that since resolved. Treatment Plan: Hospitalist on page for admission for new onset A. fib. Disposition: Admission Impression: Transient dyspnea with coughing. Acute new onset A. fib History of diabetes, hypertension high cholesterol. This note was generated with [employer] dictation software. It may contain incorrect words, spelling, and punctuation that were not noted in review of the chart prior to signing ED Disposition - Plan for ED Patient: Referrals: Gertrudis Flowers DO [Primary Care Provider] -
--- NOTE | 2020-09-23 16:23 | RAD_ITS ---
STUDY: X-RAY CHEST REASON FOR EXAM: Male, 70 years old. chest pain TECHNIQUE: AP COMPARISON: 10/14/2016 FINDINGS: EKG leads project over the chest. The lungs are clear and expanded. There is no demonstrated pleural abnormality. Normal size heart. Normal mediastinum and yandy. Normal visualized pulmonary arteries. There is atherosclerotic tortuosity of the aortic arch and descending thoracic aorta. Normal visualized thoracic spine. Normal visualized ribs, clavicles, and shoulders. There is no demonstrated abnormality of the visualized soft tissue structures of the upper abdomen. RAD/Chest 1 View (Portable) IMPRESSION: Nonacute portable x-ray examination of the chest. Electronically Signed: Juan Gonzalez MD (Brooks) at 16:34 EST , Service support ,
[2020-09-23 16:26] LABS: Absolute Lymphocyte Count 1.52 X10^3/uL (0.83-4.51); Absolute Neutrophil Count 8.3 X10^3/uL (2.0-7.7); Basophil# 0.03 X10^3/uL; Basophil% 0.3 % (0-1); Eosinophil# 0.15 X10^3/uL; Eosinophils% 1.4 % (0-5); Hematocrit 46.9 % (40-54); Hemoglobin 15.8 g/dL (13.0-16.5); Lymphocyte # 1.52 X10^3/ul (4.0); Lymphocyte % 14.2 % (19-41); Mean Corp Hgb Conc 33.7 g/dL (32-36); Mean Corpuscular Hgb 30.4 pg (27.0-32.0); Mean Corpuscular Volume 90.2 fL (80-94); Mean Platelet Vol. 9.8 fl (6.2-12.0); Monocyte# 0.75 X10^3/uL; NRBC Flagged by Analyzer 0 % (0-5); Neutrophil # 8.27 X10^3/uL (2.7-7.7); Neutrophil % 76.9 % (47-70); Platelet Count 264 K/mm3 (150-450); RBC Distribution Width CV 13.4 % (11.6-14.6); RBC Distribution Width SD 44.4 fl (35.1-43.9); White Blood Count 10.7 K/mm3 (4.4-11.0)
[2020-09-23 16:43] LABS: Anion Gap 7 (5-15); BUN 25 mg/dL (7-18); BUN/Creat Ratio 14.7 RATIO (10-20); Calcium,Total 9.5 mg/dL (8.5-10.1); Chloride 106 mmol/L (98-107); EST Glomerular Filtration Rate 43 mL/min (>60); Est Glom Filt Rate - Afr Amer 52 mL/min (>60); Estimated Creatinine Clearance 42.34 ml/min; Glucose 140 mg/dL (74-106); Potassium 3.9 mmol/L (3.5-5.1); Sodium Level 137 mmol/L (136-145)
--- NOTE | 2020-09-23 17:43 | HP.PCM_ITS ---
Problem List (1) Hyperlipidemia Status: Chronic (2) New onset atrial fibrillation Status: Acute (3) Stage III chronic kidney disease Status: Chronic (4) Hypertension Status: Chronic (5) Prediabetes Status: Chronic History of Present Illness Date of Admission: 09/23/20 Chief Complaint: Shortness of breath. The patient is a 70 year old M with past medical history as mentioned above presented to the emergency room because of shortness of breath. Symptoms started today when he was walking, started having shortness of breath, exertional, associated with mild dry hacking cough, relieved with rest and after that, he started having some upper chest and throat discomfort. He mentioned that he has been having this cough and his upper chest seemed to be tight. He denied chest pain, dizziness or lightheadedness. He mentioned that he has been having intermittent episodes of palpitation over long time but never paid attention to it. In the emergency department, he was found to be in atrial fibrillation, heart rate was controlled, other vital signs were stable. Routine blood work was remarkable for BUN of 25 and creatinine of 1.70, otherwise normal. Blood glucose was 140. EKG revealed atrial fibrillation, rate is controlled, no acute ischemic changes. Troponin was negative. Chest x-ray showed no acute findings. He is being admitted for new onset atrial fibrillation for evaluation and treatment. Past Medical History Past Medical History (Chronic Problems): Chronic Problems Hyperlipidemia (Chronic) Stage III chronic kidney disease (Chronic) Hypertension (Chronic) Prediabetes (Chronic) Allergies No Known Allergies Allergy (Verified 09/23/20 15:58) Home Medications: Ambulatory Orders Medication Instructions Recorded Aspirin 325 mg PO DAILY@0800 09/01/16 Lisinopril [Zestril] 40 mg PO DAILY 09/01/16 Metformin HCl 1 tab PO BID 09/01/16 Simvastatin 1 tab PO DAILY 09/01/16 Surgical History: tonsillectomy Psychiatric History: No pertinent psych hx Lives: Spouse/ Significant Other Smoking Status: Never smoker Alcohol: None - *Family History Maternal History Items: No pertinent history Paternal History Items: No pertinent history Review of Systems Constitutional: Denies: Anorexia, Chills, Fever, Weakness Eyes: Denies: Blurred vision, Double vision, Drainage, Redness HEENT: Denies: Difficulty Hearing, Ear Pain, Eye Pain, Nasal Congestion, Sore Throat Cardiovascular: Reports: Palpitations. Denies: Chest Pain, Chest Pressure, Chest Tightness, Syncope Respiratory: Reports: Shortness of breath upon exertion. Denies: Cough, Pleuritic Pain, Sputum production, Wheezing Gastrointestinal: Denies: Abdominal Pain, Constipation, Diarrhea, Nausea, Vomiting Genitourinary: Denies: Dysuria, Frequency, Hematuria Musculoskeletal: Denies: Arm Pain, Back Pain, Foot Pain Skin: Denies: Dryness, Rash Neurological: Denies: Balance problems, Double vision, Change in Speech, Slurred speech, Confusion, Headaches, Incoordination Psychiatric: Denies: Anxiety, Depression Endocrine: Denies: Change in Body Habitus, Polydipsia, Polyuria VTE Information - Inpt Only VTE Present on Admission: No VTE Mechan Device Prophylaxis: None VTE Pharm Prophylaxis ordered?: No Patient Problems: Active and Suspected Problems New onset atrial fibrillation (Acute) - Physical Exam Vitals/I&O's: Vital Signs Temp Pulse Resp BP Pulse Ox 97.8 F 68 17 146/96 H 96 09/23/20 15:59 09/23/20 15:59 09/23/20 15:59 09/23/20 15:59 09/23/20 16:21 Oxygen Delivery Method Room Air Weight: 246 lb 14.684 oz Body Mass Index (BMI) 35.4 General: Alert, Oriented x3, Cooperative, No apparent distress HEENT: Atraumatic, PERRLA, EOMI, Normocephalic Oral: Moist Mucosa, No Gingival or Mucosal Lesions/ Ulcerations Neck: Supple, No JVD, Negative Carotid Bruits, Trachea Midline, Thyroid Normal Size and Texture Lungs: Clear to auscultation, Normal air movement, No rhonchi, No wheeze, No rales Cardiovascular: Normal S1, Normal S2, No murmurs, PMI Normal, Irregular Rate Abdomen: Bowel Sounds Present, Soft, Non Tender, Non-Distended, No Hepato- splenomegaly, Obese Extremities: No clubbing, No cyanosis, No edema Skin: No rashes, No breakdown Lymphatic: No Cervical, Supraclavicular, or Inguinal Adenopathy Neurological: Cranial nerves II-XII grossly intact, Motor Exam 5/5 strength throughout Psych/Mental Status: Normal Affect, Appropriate, Alert and oriented to time, place, person, mood and affect Microbiology Past 72 Hours 09/23/20 16:33 Mucosa - Nose SARS-CoV-2 Antigen (Rapid) - Final Laboratory Results 09/23/20 16:15: WBC 10.7, RBC 5.20, Hgb 15.8, Hct 46.9, MCV 90.2, MCH 30.4, MCHC 33.7, RDW Std Deviation 44.4 H, RDW Coeff of Jo-Ann 13.4, Plt Count 264, MPV 9.8, Immature Gran % (Auto) 0.200, Neut % (Auto) 76.9 H, Lymph % (Auto) 14.2 L, [facility] % (Auto) 7.0, Eos % (Auto) 1.4, Baso % (Auto) 0.3, Absolute Neuts (auto) 8.3 H, Absolute Lymphs (auto) 1.52, Nucleated RBC % 0 09/23/20 16:15: Sodium 137, Potassium 3.9, Chloride 106, Carbon Dioxide 24.0, Anion Gap 7, BUN 25 H, Creatinine 1.70 H, Estim Creat Clear Calc 42.34, Est GFR (MDRD) Af Amer 52 L, Est GFR (MDRD) Non-Af 43 L, BUN/Creatinine Ratio 14.7, Glucose 140 H, Calcium 9.5, Troponin I < 0.015 Clinical Impression(s) from Imaging Studies Chest X-Ray 09/23/20 16:23 IMPRESSION: Nonacute portable x-ray examination of the chest. Electronically Signed: Juan Gonzalez MD (Brooks) at 16:34 EST , Service support , Assessment/Plan All Active Problems New onset atrial fibrillation (Acute) This is a 70 years old male patient presented to the emergency room because of shortness of breath and upper chest discomfort, found to have new onset atrial fibrillation and is being admitted for evaluation and treatment. #1 new onset atrial fibrillation: EKG reviewed, showed A. fib, no RVR, no acute ischemic changes. Troponin is negative. Patient denied any past cardiac history. Serum electrolytes are normal limits. His [id number] score is 3 and he is a candidate for anticoagulation. Plan: Admit to PCU, cardiac monitoring, check TSH, serum magnesium, 2D echocardiogram, start metoprolol for rate control, diabetic Lovenox twice daily for anticoagulation, repeat CBC and BMP tomorrow morning. #2 hypertension: Blood pressure stable, continue lisinopril when home medication list updated. #3 stage III chronic kidney disease: Baseline creatinine has been around 1.2 to 1.6 mg/dL. Admission creatinine was 1.70, close to baseline. Plan for gentle IV fluids for hydration, repeat BMP tomorrow morning. #4 prediabetes: Patient has been on Metformin. Plan: Accu-Cheks, insulin sliding scale, check hemoglobin A1c. #5 hyperlipidemia: Continue statins. #6 DVT prophylaxis: Subcu Lovenox twice daily. This note was generated with [employer] dictation software. It may contain incorrect words, spelling, and punctuation that were not noted in checking the note before signing. Inpatient E&M: 06388 Init Hosp L3
--- NOTE | 2020-09-23 18:34 | ECHOD_ITS ---
Reason For Study: Afib, Aflutter Procedure This was a 2D Doppler, Color Flow transthoracic echocardiogram. Exam performed in department. Left Ventricle Normal LV size. Left ventricular systolic function is normal. The estimated ejection fraction is 65 %. No regional wall motion abnormalities noted. Right Ventricle Normal RV size. Normal systolic function. Atria Normal left atrium. Normal right atrium. Mitral Valve Normal mitral valve. Tricuspid Valve Normal tricuspid valve. Mild tricuspid valve insufficiency. Pulmonary artery systolic pressure is 28 mmHg. Aortic Valve Trisinus/trileaflet aortic valve. Mild focal aortic valve calcification. Peak aortic valve gradient 24 mmHg. Mean aortic valve gradient 13 mmHg. Mild aortic stenosis. Calculated aortic valve area (continuity equation) is 1.2 cm2. Pulmonic Valve Normal pulmonic valve. Great Vessels Normal aortic root. The pulmonary artery is normal size. Normal inferior vena cava. Pericardium/Pleural No pericardial effusion. MMode/2D Measurements & Calculations LVIDd: 4.8 cm IVSd: 0.92 cm LVOT diam: 2.1 cm LVIDs: 2.5 cm LVPWd: 0.96 cm LVOT area: 3.4 cm2 RVDd: 3.8 cm FS: 46.5 % Ao root diam: 3.1 cm LAV(MOD-bp): 55.6 ml LVAd ap4: 22.4 cm2 LAV(MOD-bp) Indexed: 24.4 ml/m2 EDV(MOD-sp4): 60.7 ml LAV(MOD-sp2): 53.2 ml EDV(sp4-el): 62.4 ml LAV(MOD-sp4): 57.1 ml LVAs ap4: 12.1 cm2 ESV(MOD-sp4): 24.0 ml ESV(sp4-el): 22.6 ml EF(MOD-sp4): 60.5 % EF(sp4-el): 63.7 % SV(MOD-sp4): 36.7 ml SV(sp4-el): 39.7 ml LA A4 area: 20.8 cm2 LA dimension(2D): 5.0 cm RA A4 area: 14.2 cm2 Doppler Measurements & Calculations MV E max ann marie: 99.4 cm/sec Ao V2 max: 244.0 cm/sec LV V1 max: 87.1 cm/sec Ao max P.9 mmHg LV V1 max P.1 mmHg Ao V2 mean: 173.2 cm/sec LV V1 mean P.8 mmHg Ao mean P.3 mmHg LV V1 mean: 63.9 cm/sec Ao V2 VTI: 45.8 cm LV V1 VTI: 17.3 cm ISAIAH(I,D): 1.3 cm2 ISAIAH(V,D): 1.2 cm2 SV(LVOT): 59.2 ml PA V2 max: 82.5 cm/sec TR max ann marie: 241.2 cm/sec TR max P.3 mmHg Interpretation Summary Normal LV size. Left ventricular systolic function is normal. The estimated ejection fraction is 65 %. Mild focal aortic valve calcification. Mild aortic stenosis. Calculated aortic valve area (continuity equation) is 1.2 cm2. Pulmonary artery systolic pressure is 28 mmHg. Ordering Physician: Luis Brock Referring Physician: Gertrudis Flowers Performed By: Bárbara Spangler RDCS, RVT
[2020-09-23 19:05] LABS: Magnesium 1.8 mg/dL (1.6-2.6); Thyroid Stim Hormone (TSH) 3.09 uIU/mL (0.358-3.74)
[2020-09-23] MEDS: 0.9% Normal Saline 1,000 ML 75 ML IV (20:30)
[2020-09-23] MEDS: Enoxaparin 120 MG/0.8 ML Syringe 110 MG SC (20:31)
[2020-09-23] MEDS: Metoprolol Tartrate 50 MG Tablet PO (20:37)
[2020-09-23 21:46] LABS: Bedside Glucose 111 mg/dL (70-110)
[2020-09-24] VITALS (13 sets, daily range): BP systolic 98–112; BP diastolic 67–88; PULSE 61–113; RESP 12–16; TEMP 36.4–37; O2SAT 95–100
[2020-09-24 06:15] LABS: Absolute Lymphocyte Count 2.67 X10^3/uL (0.83-4.51); Absolute Neutrophil Count 4.9 X10^3/uL (2.0-7.7); Basophil# 0.03 X10^3/uL; Basophil% 0.3 % (0-1); Eosinophil# 0.24 X10^3/uL; Eosinophils% 2.8 % (0-5); Hematocrit 46.1 % (40-54); Hemoglobin 15.4 g/dL (13.0-16.5); Lymphocyte # 2.67 X10^3/ul (4.0); Lymphocyte % 30.7 % (19-41); Mean Corp Hgb Conc 33.4 g/dL (32-36); Mean Corpuscular Hgb 30.1 pg (27.0-32.0); Mean Corpuscular Volume 90.2 fL (80-94); Mean Platelet Vol. 10.7 fl (6.2-12.0); Monocyte# 0.87 X10^3/uL; NRBC Flagged by Analyzer 0 % (0-5); Neutrophil # 4.86 X10^3/uL (2.7-7.7); Platelet Count 279 K/mm3 (150-450); RBC Distribution Width CV 13.5 % (11.6-14.6); Red Blood Count 5.11 M/mm3 (4.6-6.2); White Blood Count 8.7 K/mm3 (4.4-11.0)
[2020-09-24 06:39] LABS: Anion Gap 7 (5-15); BUN 22 mg/dL (7-18); BUN/Creat Ratio 16.2 RATIO (10-20); Calcium,Total 8.8 mg/dL (8.5-10.1); Chloride 105 mmol/L (98-107); Creatinine, Serum 1.36 mg/dL (0.70-1.30); EST Glomerular Filtration Rate 55 mL/min (>60); Est Glom Filt Rate - Afr Amer 67 mL/min (>60); Estimated Creatinine Clearance 52.93 ml/min; Glucose 100 mg/dL (74-106); Sodium Level 137 mmol/L (136-145)
[2020-09-24 06:50] LABS: Bedside Glucose 110 mg/dL (70-110)
--- NOTE | 2020-09-24 07:37 | EKG12_ITS ---
Test Reason : Blood Pressure : / mmHG Vent. Rate : 071 BPM Atrial Rate : 250 BPM P-R Int : 000 ms QRS Dur : 090 ms QT Int : 374 ms P-R-T Axes : 000 075 057 degrees QTc Int : 406 ms Atrial fibrillation Abnormal ECG When compared with ECG of 23-SEP-2020 16:44, MANUAL COMPARISON REQUIRED, DATA IS UNCONFIRMED Confirmed by GEORGIA SALVADOR, LOKESH ([id number]), editor at large CORA LOZANO ([id number]) on 09/26/2020 12:49:01 PM Referred By: BRYANT Confirmed By:LOKESH HO MD
[2020-09-24] MEDS: Enoxaparin 120 MG/0.8 ML Syringe 110 MG SC ×2 (08:28→20:20)
[2020-09-24] MEDS: Metoprolol Tartrate 50 MG Tablet PO ×2 (08:28→20:20)
--- NOTE | 2020-09-24 10:26 | PN_ITS ---
Patient Problems: Active and Suspected Problems New onset atrial fibrillation (Acute) Subjective: Chief complaint: Follow-up after admission for new onset atrial fibrillation. Patient seen and examined. No acute events overnight. This morning, is feeling better, denied any more upper chest discomfort or coughing. Denied hyper tension, dizziness or lightheadedness. Denied chest pain or shortness of breath. Upon rotation of his telemetry, he did have bradycardia down to 40s and tachycardia up to 150s. Currently, he is in A. fib, heart rate stable, other vital signs are stable. - Physical Exam Vitals/I&O's: Vital Signs Temp Pulse Resp BP Pulse Ox 97.6 F L 62 16 106/88 H 99 09/24/20 08:25 09/24/20 08:28 09/24/20 08:25 09/24/20 08:28 09/24/20 08:25 Oxygen Delivery Method Room Air Weight: 242 lb 11.663 oz Body Mass Index (BMI) 34.8 Intake and Output for Last 24 Hours 09/22/20 09/23/20 09/24/20 23:59 23:59 23:59 Intake Total 1500 / 1500 Balance 1500 / 1500 General: Alert, Oriented x3, Cooperative, No apparent distress HEENT: Atraumatic, PERRLA, EOMI, Normocephalic Oral: Moist Mucosa, No Gingival or Mucosal Lesions/ Ulcerations Neck: Supple, No JVD, Negative Carotid Bruits, Trachea Midline, Thyroid Normal Size and Texture Lungs: Clear to auscultation, Normal air movement, No rhonchi, No wheeze, No rales Cardiovascular: Normal S1, Normal S2, No murmurs, PMI Normal, Irregular Rate Abdomen: Bowel Sounds Present, Soft, Non Tender, Non-Distended, No Hepato- splenomegaly, Obese Extremities: No clubbing, No cyanosis, No edema Skin: No rashes, No breakdown Lymphatic: No Cervical, Supraclavicular, or Inguinal Adenopathy Neurological: Cranial nerves II-XII grossly intact, Neuro grossly intact Psych/Mental Status: Normal Affect, Appropriate, Alert and oriented to time, place, person, mood and affect Microbiology Past 72 Hours 09/23/20 16:33 Mucosa - Nose SARS-CoV-2 Antigen (Rapid) - Final Laboratory Results 09/23/20 16:15: WBC 10.7, RBC 5.20, Hgb 15.8, Hct 46.9, MCV 90.2, MCH 30.4, MCHC 33.7, RDW Std Deviation 44.4 H, RDW Coeff of Jo-Ann 13.4, Plt Count 264, MPV 9.8, Immature Gran % (Auto) 0.200, Neut % (Auto) 76.9 H, Lymph % (Auto) 14.2 L, Andrews % (Auto) 7.0, Eos % (Auto) 1.4, Baso % (Auto) 0.3, Absolute Neuts (auto) 8.3 H, Absolute Lymphs (auto) 1.52, Nucleated RBC % 0 09/23/20 16:15: Sodium 137, Potassium 3.9, Chloride 106, Carbon Dioxide 24.0, Anion Gap 7, BUN 25 H, Creatinine 1.70 H, Estim Creat Clear Calc 42.34, Est GFR (MDRD) Af Amer 52 L, Est GFR (MDRD) Non-Af 43 L, BUN/Creatinine Ratio 14.7, Glucose 140 H, Calcium 9.5, Troponin I < 0.015 09/23/20 16:15: Magnesium 1.8, TSH 3.09 09/23/20 16:15: Hemoglobin A1c 6.0 H 09/23/20 19:32: Troponin I < 0.015 09/23/20 20:37: POC Glucose 111 H 09/23/20 21:48: Troponin I < 0.015 09/24/20 05:39: WBC 8.7, RBC 5.11, Hgb 15.4, Hct 46.1, MCV 90.2, MCH 30.1, MCHC 33.4, RDW Std Deviation 45.0 H, RDW Coeff of Jo-Ann 13.5, Plt Count 279, MPV 10.7, Immature Gran % (Auto) 0.200, Neut % (Auto) 56.0, Lymph % (Auto) 30.7, Andrews % (Auto) 10.0, Eos % (Auto) 2.8, Baso % (Auto) 0.3, Absolute Neuts (auto) 4.9, Absolute Lymphs (auto) 2.67, Nucleated RBC % 0 09/24/20 05:39: Sodium 137, Potassium 4.0, Chloride 105, Carbon Dioxide 25.0, Anion Gap 7, BUN 22 H, Creatinine 1.36 H, Estim Creat Clear Calc 52.93, Est GFR (MDRD) Af Amer 67, Est GFR (MDRD) Non-Af 55 L, BUN/Creatinine Ratio 16.2, Glucose 100, Calcium 8.8 09/24/20 06:46: POC Glucose 110 Current Medications Enoxaparin Sodium (Enoxaparin 120 Mg/0.8 Ml Syringe) 110 mg SC Q12 [facility] Last Admin: 09/24/20 08:28 Dose: 110 mg Documented by: Guaifenesin (Guaifenesin 10 Ml Udc (200mg/10ml)) 10 ml PO Q6H PRN PRN PRN Reason: Cough, congestion Insulin Human Lispro (Insulin Lispro 100 Unit/Ml Insuln.Pen) 0 unit SC ACHS [facility]; Protocol Last Admin: 09/24/20 06:51 Dose: Not Given Documented by: Metoprolol Tartrate (Metoprolol Tartrate 50 Mg Tablet) 50 mg PO BID [facility] Last Admin: 09/24/20 08:28 Dose: 50 mg Documented by: Ondansetron HCl (Ondansetron 4 Mg/2 Ml Vial) 4 mg IV Q8H PRN PRN PRN Reason: NAUSEA/VOMITING Sodium Chloride (0.9% Saline Lock 10 Ml Syringe) 10 - 40 ml IV UD PRN PRN Reason: SALINE FLUSH Zolpidem Tartrate (Zolpidem Tartrate 5 Mg Tablet) 5 mg PO QHS PRN PRN PRN Reason: INSOMNIA Medical Necessity - Tobacco Use Smoking Status: Never smoker Assessment/Plan All Active Problems New onset atrial fibrillation (Acute) This is a 70 years old male patient presented to the emergency room because of shortness of breath and upper chest discomfort, found to have new onset atrial fibrillation and is being admitted for evaluation and treatment. #1 new onset atrial fibrillation: Telemetry reviewed, heart rate has been up and down, down to 40s and up to 160s. He is on metoprolol twice daily and therapeutic Lovenox twice daily. Tachybradycardia syndrome cannot be ruled out. Troponin was negative x3. Repeat EKG from today revealed A. fib, rate is controlled, no acute changes. Serum electrolytes including potassium, magnesium and calcium were normal. TSH was normal. 2D echocardiogram ordered. His [id number] score is 3 and he is a candidate for anticoagulation. Plan: Cardiology consult, plan to switch him to Eliquis if no plan for cardiac interventions. #2 hypertension: Currently, blood pressure stable, awaiting home med list to be updated. #3 stage III chronic kidney disease: Baseline creatinine has been around 1.2 to 1.6 mg/dL. Admission creatinine was 1.70, today's creatinine is 1.36, improved and back to baseline. #4 prediabetes: Patient has been on Metformin. Hemoglobin A1c was 6%. Currently, he is on Accu-Cheks and sliding scale. #5 hyperlipidemia: Continue statins. #6 DVT prophylaxis: Subcu Lovenox twice daily. This note was generated with [employer] dictation software. It may contain incorrect words, spelling, and punctuation that were not noted in checking the note before signing. Inpatient E&M: 52725 Subs Hosp L2
--- NOTE | 2020-09-24 11:07 | PCM.CONS.C ---
Reason for Consult Date of Consultation: 09/24/20 History of Present Illness: The patient is a 70 year old M [] Past Medical History Allergies/Adverse Reactions: Allergies No Known Allergies Allergy (Verified 09/23/20 15:58) Home Medications: Ambulatory Orders Medication Instructions Recorded Aspirin 325 mg PO DAILY@0800 09/01/16 Amlodipine Besylate [Norvasc] 5 mg PO DAILY 09/24/20 Atorvastatin Calcium [Lipitor] 20 mg PO QHS 09/24/20 Lisinopril/Hydrochlorothiazide 1 ea PO DAILY 09/24/20 [Lisinopril-Hctz 20-12.5 mg Tab] Metformin HCl [Glucophage] 500 mg PO BID 09/24/20 Past Medical History (Chronic Problems): Chronic Problems Hyperlipidemia (Chronic) Stage III chronic kidney disease (Chronic) Hypertension (Chronic) Prediabetes (Chronic) Surgical History: tonsillectomy Psychiatric History: No pertinent psych hx - *Family History Maternal History Items: No pertinent history Paternal History Items: No pertinent history Lives: Spouse/ Significant Other Smoking Status: Never smoker Alcohol: None Objective: Vital Signs Temp Pulse Resp BP Pulse Ox 97.6 F L 62 16 106/88 H 99 09/24/20 08:25 09/24/20 08:28 09/24/20 08:25 09/24/20 08:28 09/24/20 08:25 Oxygen Delivery Method Room Air Weight: 242 lb 11.663 oz Body Mass Index (BMI) 34.8 Intake and Output for Last 24 Hours 09/22/20 09/23/20 09/24/20 23:59 23:59 23:59 Intake Total 1500 / 1500 Balance 1500 / 1500 General: Awake, Alert, Oriented x 3 HEENT: PERRL, EOMI, Sclera Non Icteric Neck: Supple, Good ROM, No Lymph Node Enlargement Lungs: Clear to auscultation Cardiovascular: Regular Rhythm, Normal S1, Normal S2, No Murmurs, No Rubs, No Gallops 09/23/20 16:15: WBC 10.7, RBC 5.20, Hgb 15.8, Hct 46.9, MCV 90.2, MCH 30.4, MCHC 33.7, Plt Count 264, MPV 9.8, Immature Gran % (Auto) 0.200, Neut % (Auto) 76.9 H, Lymph % (Auto) 14.2 L, Garrett % (Auto) 7.0, Eos % (Auto) 1.4, Baso % (Auto) 0.3, Absolute Neuts (auto) 8.3 H, Nucleated RBC % 0 09/23/20 16:15: Sodium 137, Potassium 3.9, Chloride 106, Carbon Dioxide 24.0, Anion Gap 7, BUN 25 H, Creatinine 1.70 H, Est GFR (MDRD) Af Amer 52 L, Est GFR (MDRD) Non-Af 43 L, BUN/Creatinine Ratio 14.7, Glucose 140 H, Calcium 9.5, Troponin I < 0.015 09/23/20 16:15: Magnesium 1.8 09/23/20 16:15: Hemoglobin A1c 6.0 H 09/23/20 19:32: Troponin I < 0.015 09/23/20 21:48: Troponin I < 0.015 09/24/20 05:39: WBC 8.7, RBC 5.11, Hgb 15.4, Hct 46.1, MCV 90.2, MCH 30.1, MCHC 33.4, Plt Count 279, MPV 10.7, Immature Gran % (Auto) 0.200, Neut % (Auto) 56.0, Lymph % (Auto) 30.7, Garrett % (Auto) 10.0, Eos % (Auto) 2.8, Baso % (Auto) 0.3, Absolute Neuts (auto) 4.9, Nucleated RBC % 0 09/24/20 05:39: Sodium 137, Potassium 4.0, Chloride 105, Carbon Dioxide 25.0, Anion Gap 7, BUN 22 H, Creatinine 1.36 H, Est GFR (MDRD) Af Amer 67, Est GFR (MDRD) Non-Af 55 L, BUN/Creatinine Ratio 16.2, Glucose 100, Calcium 8.8 Rhythm: A. fib with slow ventricular rate EKG: Atrial fibrillation, new onset in comparison to prior EKG in 2017 Assessment/Plan 70-year-old male evaluated today at bedside along with the nursing staff, sister at bedside Cardiac auscultation requested for evaluation of new onset atrial fibrillation Patient has multiple risk factor for CAD history of hypertension, prediabetes and hyperlipidemia Also had a stage III CKD and a history of DVT currently on subcu Lovenox. Symptoms as noted he had symptoms of atypical discomfort in the throat with coughing and also noted some palpitation with shortness of breath. Review of the record he had an EKG in 2017 at that time he was in normal sinus. And he does not have any significant symptoms before Patient had family history of CAD his brother at the age of 47 with myocardial infarction. On cardiac examination is a cardiac exam essentially showed underlying atrial fibrillation with tachybradycardia syndrome Also had no cardiac murmurs on auscultation Assessment and plan; 1. Patient currently on medical treatment for hypertension, hyperlipidemia also started on beta-mabel and also on subcu Lovenox 2. We will evaluate with echocardiogram and as well will assess with Lexiscan sestamibi marker perfusion study Patient will require long-term anticoagulation due to the risk of a stroke, CHADS2 VASc score is more than 3 3. Further cardiac care plan and recommendation will be based on his echocardiogram as well as nuclear stress test And he will be followed by the treating inspector Dr. Barrett.
[2020-09-24 12:35] LABS: Bedside Glucose 107 mg/dL (70-110)
[2020-09-24 16:56] LABS: Bedside Glucose 93 mg/dL (70-110)
[2020-09-24] MEDS: Atorvastatin Calcium 20 MG Tablet PO (20:20)
[2020-09-24] MEDS: Zolpidem Tartrate 5 MG Tablet PO (20:20)
--- NOTE | 2020-09-24 20:32 | NURSING ---
Pt requested evening medications and ambien early d/t not getting much sleep during the day. Medications given as requested. Ander RN
[2020-09-24 21:55] LABS: Bedside Glucose 99 mg/dL (70-110)
[2020-09-25 02:00] VITALS: BP 100/69; PULSE 65; RESP 14; TEMP 36.6; O2SAT 100
[2020-09-25 03:00] VITALS: PULSE 101
--- NOTE | 2020-09-25 05:55 | EKG12_ITS ---
Test Reason : AM EKG Blood Pressure : / mmHG Vent. Rate : 057 BPM Atrial Rate : 122 BPM P-R Int : 000 ms QRS Dur : 092 ms QT Int : 386 ms P-R-T Axes : 000 077 026 degrees QTc Int : 375 ms Atrial fibrillation Abnormal ECG When compared with ECG of 24-SEP-2020 07:51, MANUAL COMPARISON REQUIRED, DATA IS UNCONFIRMED Confirmed by GEORGIA SALVADOR, LOKESH ([id number]), book editor CORA LOZANO ([id number]) on 09/26/2020 12:47:01 PM Referred By: BRYANT Confirmed By:LOKESH HO MD
[2020-09-25 06:23] VITALS: BP 103/70; PULSE 66; RESP 12; TEMP 36.6; O2SAT 97
[2020-09-25] MEDS: Aspirin 325 MG Tablet PO (06:24)
[2020-09-25 07:00] VITALS: PULSE 102
[2020-09-25 07:05] LABS: Bedside Glucose 97 mg/dL (70-110)
[2020-09-25 08:37] LABS: Absolute Lymphocyte Count 1.98 X10^3/uL (0.83-4.51); Absolute Neutrophil Count 3.8 X10^3/uL (2.0-7.7); Basophil# 0.03 X10^3/uL; Basophil% 0.4 % (0-1); Eosinophil# 0.21 X10^3/uL; Eosinophils% 3.1 % (0-5); Hematocrit 47.6 % (40-54); Lymphocyte # 1.98 X10^3/ul (4.0); Lymphocyte % 29.4 % (19-41); Mean Corp Hgb Conc 33.6 g/dL (32-36); Mean Corpuscular Hgb 30.5 pg (27.0-32.0); Mean Corpuscular Volume 90.7 fL (80-94); Mean Platelet Vol. 10.4 fl (6.2-12.0); Monocyte# 0.66 X10^3/uL; Monocyte% 9.8 % (0-10); NRBC Flagged by Analyzer 0 % (0-5); Neutrophil # 3.84 X10^3/uL (2.7-7.7); Platelet Count 285 K/mm3 (150-450); RBC Distribution Width CV 13.5 % (11.6-14.6); RBC Distribution Width SD 44.8 fl (35.1-43.9); Red Blood Count 5.25 M/mm3 (4.6-6.2); White Blood Count 6.7 K/mm3 (4.4-11.0)
[2020-09-25 08:57] LABS: Anion Gap 5 (5-15); BUN 29 mg/dL (7-18); BUN/Creat Ratio 17.4 RATIO (10-20); Calcium,Total 9.2 mg/dL (8.5-10.1); Chloride 106 mmol/L (98-107); Creatinine, Serum 1.67 mg/dL (0.70-1.30); EST Glomerular Filtration Rate 44 mL/min (>60); Est Glom Filt Rate - Afr Amer 53 mL/min (>60); Estimated Creatinine Clearance 43.11 ml/min; Glucose 97 mg/dL (74-106); Potassium 4.5 mmol/L (3.5-5.1); Sodium Level 134 mmol/L (136-145)
--- NOTE | 2020-09-25 09:36 | CASEMGMT ---
LW/Healthcare POA forms scanned into summary tab of [facility] listed as Healthcare POA. MADDISON Yeager
--- NOTE | 2020-09-25 11:48 | STRESSREP_ITS ---
Stress Test Report Exercise myocardial perfusion stress test. 70-year-old man with a history of new onset atrial fibrillation. Stress protocol: Resting EKG demonstrates atrial fibrillation with a rate of 75 bpm normal intervals are noted resting blood pressure is 118/86 mmHg. The patient exercised according to regular Calixto protocol for 5-1/2 minutes. Completing 2- 1/2 minutes into stage II of the Calixto protocol. The maximum heart rate attained was 148 bpm which was 98% of max impacted heart rate the maximum workload was 7 metabolic equivalent. At rest there were no ST or T wave changes noted suggest ischemia peak exercise upsloping ST changes only were noted with no meet the criteria for ischemia. No clinical angina was noted the test was terminated due to dyspnea. Myocardial perfusion protocol. 15.0 mCi of technetium 99m sestamibi was injected at rest. Patient exercised according to regular Calixto protocol for 5-1/2 minutes at peak exercise 44.1 mCi of technetium 99m sestamibi was injected stress images were obtained stress and rest images were reconstructed and compared in the short axis vertical long horizontal long axis. Gated images were also obtained Perfusion SPECT analysis: Review of the stress images demonstrate normal uptake of tracer noted in all areas of myocardium the rest images similarly demonstrate normal uptake of tracer noted in all areas of myocardium. No reversibility is noted suggest ischemia no previous infarct is noted. Gated SPECT analysis: The gated ejection fraction is 63%. Conclusion: Exercise myocardial perfusion stress test with no evidence of ischemia noted at a moderate workload. Atrial fibrillation with a controlled ventricular response rate present. Good blood pressure response to exercise.
[2020-09-25 11:55] VITALS: BP 116/76; PULSE 91; RESP 16; TEMP 36.4; O2SAT 100
--- NOTE | 2020-09-25 11:58 | DCINST_ITS ---
- Discharge Diagnoses Current Active Problems: Current Active and Chronic Problems Hyperlipidemia (Chronic) New onset atrial fibrillation (Acute) Stage III chronic kidney disease (Chronic) Hypertension (Chronic) Prediabetes (Chronic) You will use the following diet at home:: Cardiac Your food should be the consistency of: Regular Your liquids should be the consistency of: Regular/Thin Discharge Activity: Return to Normal Activity Weight Bearing Status: Weight bearing as tolerated Call your doctor if you observe: Shortness of breath, Dizziness, Increased palpitations (irregular heartbeat) Instructions: Atrial Fibrillation, What Is Atrial Flutter/Atrial Fibrillation? Allergies/Adverse Reactions: Allergies No Known Allergies Allergy (Verified 09/23/20 15:58) Medications to take at Discharge Amlodipine Besylate [Norvasc] 5 mg PO DAILY 09/24/20 Atorvastatin Calcium [Lipitor] 20 mg PO QHS 09/24/20 Lisinopril/Hydrochlorothiazide [Lisinopril-Hctz 20-12.5 mg Tab] 1 ea PO DAILY 09/24/20 Metformin HCl [Glucophage] 500 mg PO BID 09/24/20 Apixaban [Eliquis] 5 mg PO BID #60 tab 09/25/20 Metoprolol Tartrate [Lopressor (beta mabel)] 50 mg PO BID #60 tab 09/25/20 The following prescriptions were given: Apixaban [Eliquis] 5 mg PO BID #60 tab Transmission Status: Pending to [facility]/pharmacy #[id number] Metoprolol Tartrate [Lopressor (beta mabel)] 50 mg PO BID #60 tab Transmission Status: Pending to [facility]/pharmacy #[id number] Primary Care Physician: Gertrudis Flowers DO [Primary Care Provider] - Please follow up with your Primary Care Physician in: 1-2 weeks Test Results: Test results from this visit will be discussed in further detail at your follow- up appointment, if applicable. Please Follow Up With: Dutch Barrett MD When: 2-3 weeks Proposed Discharge Date: 09/25/20
[2020-09-25 12:01] VITALS: PULSE 91
[2020-09-25] MEDS: amLODIPine 5 MG Tablet PO (12:01)
[2020-09-25] MEDS: Metoprolol Tartrate 50 MG Tablet PO (12:01)
--- NOTE | 2020-09-25 12:02 | DS.PCM_ITS ---
Discharge Date and Diagnosis - Problem List Patient Problems: Active and Suspected Problems New onset atrial fibrillation (Acute) Date of Admission: 09/23/20 Date of Discharge: 09/25/20 - Primary Discharge Diagnosis Acute Problems: Active Problems New onset atrial fibrillation (Acute) - Secondary Discharge Diagnosis Chronic Problems: Chronic Problems Hyperlipidemia (Chronic) Stage III chronic kidney disease (Chronic) Hypertension (Chronic) Prediabetes (Chronic) Hospital Course and Treatment Imaging Results: 09/25/20 05:55 Nuclear Stress Test - Treadmmo [NM] Routine cardiology- Dr Stacy Operations: None Procedures: 2-D Echocardiogram, Stress test Summary of Care Provided: The patient is a 70 year old M with a past medical history as outlined was admitted through the ED on 09/23/2020 with a complaint of shortness of breath with assisted mouth dry hacking cough relieved with rest. He also started having upper chest and throat discomfort. He denied any chest pain, dizziness or lightheadedness. He also said he had been having intermittent palpitations. On arrival in the ED, he was found to be in A. fib which was rate controlled. Labs were only remarkable for creatinine of 1.7 was otherwise normal. EKG showed A. fib which is rate controlled with no acute ST changes. Troponins x3 were negative and chest x-ray showed no acute findings. He was admitted and managed for new onset A. fib. TSH was within normal limits and was started on metoprolol. He was also started on therapeutic Lovenox. Serum magnesium was within normal limits as well. Cardiology was consulted. He had a stress test done on 09/25/2020 which showed no evidence of ischemia in A. fib was present. EF was 63%. 2D echo was done and read was pending at time of discharge. Patient remained stable and was discharged on 09/25/2020. He was discharged a pres cription for p.o. metoprolol 50 mg twice daily as well as p.o. Eliquis 5 mg twice daily for thromboprophylaxis. He is to follow-up with his primary care doctor in 1 to 2 weeks and also to follow-up with cardiology in 2 to 4 weeks. Of note, patient had been on aspirin which he says he was told to prevent blood clots after he had a PE 7 years ago. Aspirin 325 mg was discontinued. Patient seen and examined prior to discharge. He had no complaints. Review of stems otherwise negative. Labs and vitals reviewed. Home medication reviewed and reconciled. O/E Vital Signs Temp Pulse Resp BP Pulse Ox 97.6 F L 91 16 116/76 100 09/25/20 11:55 09/25/20 12:01 09/25/20 11:55 09/25/20 11:55 09/25/20 11:55 [] General: Alert, Oriented x3, Cooperative, No apparent distress HEENT: Atraumatic, PERRLA, EOMI, Normocephalic Oral: Moist Mucosa, No Gingival or Mucosal Lesions/ Ulcerations Neck: Supple, No JVD, Negative Carotid Bruits, Trachea Midline, Thyroid Normal Size and Texture Lungs: Clear to auscultation, Normal air movement, No rhonchi, No wheeze, No rales Cardiovascular: Normal S1, Normal S2, No murmurs, PMI Normal, Irregular rate; Afib, rate controlled. Abdomen: Bowel Sounds Present, Soft, Non Tender, Non-Distended, No Hepato- splenomegaly, Obese Extremities: No clubbing, No cyanosis, No edema Skin: No rashes, No breakdown Lymphatic: No Cervical, Supraclavicular, or Inguinal Adenopathy Neurological: Cranial nerves II-XII grossly intact, Neuro grossly intact Psych/Mental Status: Normal Affect, Appropriate, Alert and oriented to time, place, person, mood and affect Plan is for discharge home today. Patient Problems: Active and Suspected Problems New onset atrial fibrillation (Acute) - Physical Exam Vitals/I&O's: Vital Signs Temp Pulse Resp BP Pulse Ox 97.8 F 102 H 12 103/70 97 09/25/20 06:23 09/25/20 07:00 09/25/20 06:23 09/25/20 06:23 09/25/20 06:23 Oxygen Delivery Method Room Air Weight: 242 lb 11.663 oz Body Mass Index (BMI) 34.8 Intake and Output for Last 24 Hours 09/23/20 09/24/20 09/25/20 23:59 23:59 23:59 Intake Total 2250 / 2250 0 / 0 Balance 2250 / 2250 0 / 0 Microbiology Past 72 Hours 09/23/20 16:33 Mucosa - Nose SARS-CoV-2 Antigen (Rapid) - Final Laboratory Results 09/24/20 12:15: POC Glucose 107 09/24/20 16:51: POC Glucose 93 09/24/20 20:18: POC Glucose 99 09/25/20 06:21: POC Glucose 97 09/25/20 08:26: WBC 6.7, RBC 5.25, Hgb 16.0, Hct 47.6, MCV 90.7, MCH 30.5, MCHC 33.6, RDW Std Deviation 44.8 H, RDW Coeff of Jo-Ann 13.5, Plt Count 285, MPV 10.4, Immature Gran % (Auto) 0.300, Neut % (Auto) 57.0, Lymph % (Auto) 29.4, [place] % (Auto) 9.8, Eos % (Auto) 3.1, Baso % (Auto) 0.4, Absolute Neuts (auto) 3.8, Absolute Lymphs (auto) 1.98, Nucleated RBC % 0 09/25/20 08:26: Sodium 134 L, Potassium 4.5, Chloride 106, Carbon Dioxide 23.0, Anion Gap 5, BUN 29 H, Creatinine 1.67 H, Estim Creat Clear Calc 43.11, Est GFR (MDRD) Af Amer 53 L, Est GFR (MDRD) Non-Af 44 L, BUN/Creatinine Ratio 17.4, Glucose 97, Calcium 9.2 Current Medications Alprazolam (Alprazolam 0.5 Mg Tablet) 0.5 mg PO BID PRN PRN PRN Reason: Insomnia, anxiety Amlodipine Besylate (Amlodipine 5 Mg Tablet) 5 mg PO DAILY [facility] Last Admin: 09/24/20 12:13 Dose: Not Given Documented by: Aspirin (Aspirin 325 Mg Tablet) 325 mg PO DAILY@0800 [facility] Last Admin: 09/25/20 06:24 Dose: 325 mg Documented by: Atorvastatin Calcium (Atorvastatin Calcium 20 Mg Tablet) 20 mg PO QHS [facility] Last Admin: 09/24/20 20:20 Dose: 20 mg Documented by: Enoxaparin Sodium (Enoxaparin 120 Mg/0.8 Ml Syringe) 110 mg SC Q12 [facility] Last Admin: 09/24/20 20:20 Dose: 110 mg Documented by: Guaifenesin (Guaifenesin 10 Ml Udc (200mg/10ml)) 10 ml PO Q6H PRN PRN PRN Reason: Cough, congestion Insulin Human Lispro (Insulin Lispro 100 Unit/Ml Insuln.Pen) 0 unit SC ACHS [facility]; Protocol Last Admin: 09/25/20 06:25 Dose: Not Given Documented by: Metoprolol Tartrate (Metoprolol Tartrate 50 Mg Tablet) 50 mg PO BID [facility] Last Admin: 09/24/20 20:20 Dose: 50 mg Documented by: Ondansetron HCl (Ondansetron 4 Mg/2 Ml Vial) 4 mg IV Q8H PRN PRN PRN Reason: NAUSEA/VOMITING Sodium Chloride (0.9% Saline Lock 10 Ml Syringe) 10 - 40 ml IV UD PRN PRN Reason: SALINE FLUSH Zolpidem Tartrate (Zolpidem Tartrate 5 Mg Tablet) 5 mg PO QHS PRN PRN PRN Reason: INSOMNIA Last Admin: 09/24/20 20:20 Dose: 5 mg Documented by: Discharge Diet: Low fat/ Low Cholesterol Discharge Activity: Return to Normal Activity Weight Bearing Status: Weight bearing as tolerated Call your doctor if you observe: Shortness of breath, Dizziness, Increased palpitations (irregular heartbeat) Home Medications: Medications to take at Discharge Amlodipine Besylate [Norvasc] 5 mg PO DAILY 09/24/20 Atorvastatin Calcium [Lipitor] 20 mg PO QHS 09/24/20 Lisinopril/Hydrochlorothiazide [Lisinopril-Hctz 20-12.5 mg Tab] 1 ea PO DAILY 09/24/20 Metformin HCl [Glucophage] 500 mg PO BID 09/24/20 Apixaban [Eliquis] 5 mg PO BID #60 tab 09/25/20 Metoprolol Tartrate [Lopressor (beta mabel)] 50 mg PO BID #60 tab 09/25/20 Following Prescriptions Were Given to Patient: Apixaban [Eliquis] 5 mg PO BID #60 tab Transmission Status: Received by [facility]/pharmacy #[id number] Metoprolol Tartrate [Lopressor (beta mabel)] 50 mg PO BID #60 tab Transmission Status: Received by [facility]/pharmacy #[id number] Primary Care Physician: Gertrudis Flowers DO [Primary Care Provider] - Please follow up with your Primary Care Physician in: 1-2 weeks Please Follow Up With: Dutch Barrett MD When: 2-3 weeks Patient Instructions: What Is Atrial Flutter/Atrial Fibrillation?, Atrial Fibrillation Disposition: Home Minutes spent on discharge:: 35 Patient Condition:: Stable Medical Necessity - Tobacco Use Smoking Status: Never smoker Meaningful Use Info Meaningful Use Diagnoses (Choose all that apply): None applicable Inpatient E&M: 36526 Disch Hosp
[2020-09-25 12:10] LABS: Bedside Glucose 96 mg/dL (70-110)
--- NOTE | 2020-09-25 12:28 | PHA.DC.MC ---
Pharmacy Service has performed discharge medication reconciliation and counseling for this patient. The patient was counseled on the following discharge medications and changes in medications for homegoing were reviewed. 1. ELIQUIS 2. METOPROLOL TARTRATE The Reason for Use, instructions for use, and potential side effects were reviewed for all new medications. The patient's questions regarding all of their medications were answered. The patient was able to verbally demonstrate an understanding of their discharge medications. Home Medications Amlodipine Besylate [Norvasc] 5 mg PO DAILY 09/24/20 Atorvastatin Calcium [Lipitor] 20 mg PO QHS 09/24/20 Lisinopril/Hydrochlorothiazide [Lisinopril-Hctz 20-12.5 mg Tab] 1 ea PO DAILY 09/24/20 Metformin HCl [Glucophage] 500 mg PO BID 09/24/20 Apixaban [Eliquis] 5 mg PO BID #60 tab 09/25/20 Metoprolol Tartrate [Lopressor (beta mabel)] 50 mg PO BID #60 tab 09/25/20 The patient's discharge medication list was reviewed for discrepancies and discrepancies were resolved.
--- NOTE | 2020-09-25 13:10 | CASEMGMT ---
RN verified with [facility] pharmacy that pt cost for eliquis will be $542.90. Pt notified of this info and is aware that if he has concerns with the cost of the med to discuss with the client experience administrator at his fu appt. Pt will have first 30 days free with trial card. No further questions/concerns at this time.
== END 2020-09-25 14:19 | disposition home or self-care (01) | DRG 310 ==
LOC: ED 16:56 → PCU 18:09
PROVIDERS: Admitting Provider Hospitalist; Emergency Provider Emergency Medicine; PCP Internal Medicine; Visit Provider Student in an Organized Health Care Education/Training Program
DX: I48.91 Unspecified atrial fibrillation (principal); E78.5 Hyperlipidemia, unspecified; I12.9 Hypertensive chronic kidney disease with stage 1 through stage 4 chronic kidney disease, or unspecified chronic kidney disease; N18.30 Chronic kidney disease, stage 3 unspecified; R73.03 Prediabetes; Z86.718 Personal history of other venous thrombosis and embolism
CPT/HCPCS: 36415; 71045; 78452; 80048; 82962; 83036; 83735; 84443; 84484; 85025; 87426; 93005; 93017; 93306; 97802; 99251; 99285; A9500; J7030; A4216; G0463

== ENCOUNTER 2020-10-30 10:51 | Day surgery (SDC) | payer MEDICARE, OTHER, SELFPAY ==
[2020-10-17 09:00] VITALS: BMI 34.8
[2020-10-23 13:56] LABS: Anion Gap 3 (5-15); BUN 32 mg/dL (7-18); BUN/Creat Ratio 19.5 RATIO (10-20); Chloride 105 mmol/L (98-107); Creatinine, Serum 1.64 mg/dL (0.70-1.30); EST Glomerular Filtration Rate 44 mL/min (>60); Est Glom Filt Rate - Afr Amer 54 mL/min (>60); Glucose 120 mg/dL (74-106); Potassium 4.1 mmol/L (3.5-5.1); Sodium Level 135 mmol/L (136-145)
[2020-10-27 08:35] VITALS: BMI 34.4
--- NOTE | 2020-10-30 11:56 | CARDIOVERS ---
Cardioversion Cardioversion: DC cardioversion. 70-year-old man with a history of preserved ejection fraction permanent atrial fibrillation. Patient is here for elective DC cardioversion. Patient has been on anticoagulation. The patient was seen by Dr. Black of the critical care division. Informed consent was obtained. Anterior-posterior pads were applied. The patient was then administered 60 mg of intravenous propofol. 200 J of synchronized DC cardioversion energy were applied with prompt reversal to sinus rhythm. Patient tolerated the procedure well. Conclusion: Successful DC cardioversion to sinus rhythm. Continue current medical therapy. Follow-up per office routine.
--- NOTE | 2020-10-30 12:09 | PCM.OP.PRO ---
Problem List (1) Persistent atrial fibrillation Status: Acute (2) Essential (primary) hypertension Status: Chronic (3) Hyperlipidemia Status: Chronic (4) Nonrheumatic aortic (valve) stenosis Status: Chronic (5) Stage III chronic kidney disease Status: Chronic Procedure Report Date of Procedure: 10/30/20 - Conscious sedation CONSCIOUS SEDATION REPORT BRIEF HISTORY OF PRESENT ILLNESS: The patient is a 70-year-old male who presented to [facility] for an elective outpatient cardioversion due to underlying atrial fibrillation. The patient reports no PO intake since midnight. The patient does not have a history of obstructive sleep apnea, but it has been suggested to him in the past by previous providers. The patient reports no history of smoking and COPD. The patient denies any recent constitutional symptoms such as fevers, chills, nausea or vomiting. The patient denies previous anesthetic complications. Patient's last known ejection fraction was 65%. Patient did take his Eliquis on the day of the procedure PHYSICAL EXAMINATION: VITAL SIGNS: Reviewed and were acceptable. GENERAL: The patient is a male, in no apparent distress, speaking in full sentences. HEENT: Normocephalic, atraumatic. Mucous membranes are moist and pink. Good mouth opening noted. Trachea is midline. Good neck mobility. MP III CHEST: S1, S2 irregularly irregular. No murmurs, rubs or gallops were noted. LUNGS: Clear to auscultation bilaterally without appreciable wheezes, rales or rhonchi. ABDOMEN: Soft, nontender, nondistended. Positive bowel sounds. EXTREMITIES: There is no clubbing, cyanosis or edema. ASA Class: II DESCRIPTION OF PROCEDURE: After confirmation of informed consent, the patient's anesthesia plan was reviewed in detail. Propofol was chosen. Risks and benefits were reviewed and the patient agreed to proceed. At 11:44 AM, the patient was given 40 mg of propofol. The patient required a total of 60 mg of propofol throughout the procedure to achieve appropriate sedation. The patient achieved an appropriate level of sedation and received 1 attempt synchronized cardioversion, at [address] Barrett at the bedside. This was successful in achieving normal sinus rhythm. The patient was monitored until 11:57 AM, at which time the patient reached their baseline mental status and function. The patient tolerated the procedure well. COMPLICATIONS: None ESTIMATED BLOOD LOSS: None RECOMMENDATIONS: Okay to recover in usual fashion. [id number]: Other Procedure See Report - [id number]
== END 2020-10-30 12:50 | disposition home or self-care (01) ==
LOC: CLSP 10:54
PROVIDERS: PCP Internal Medicine; Referring Provider Internal Medicine Cardiovascular Disease; Visit Provider Internal Medicine Cardiovascular Disease
DX: I48.21 Permanent atrial fibrillation (principal); I12.9 Hypertensive chronic kidney disease with stage 1 through stage 4 chronic kidney disease, or unspecified chronic kidney disease; N18.30 Chronic kidney disease, stage 3 unspecified; I35.0 Nonrheumatic aortic (valve) stenosis; E78.5 Hyperlipidemia, unspecified
CPT/HCPCS: 36415; 80048; 92960; 93005; J7040

== ENCOUNTER → 2021-01-23 08:28 | Outpatient (CLI) | payer MEDICARE, OTHER, SELFPAY ==
[2020-11-16 14:19] VITALS: BMI 34.8
[2021-01-23 10:04] LABS: Absolute Lymphocyte Count 1.55 X10^3/uL (0.83-4.51); Basophil# 0.04 X10^3/uL; Basophil% 0.7 % (0-1); Eosinophil# 0.23 X10^3/uL; Eosinophils% 4.2 % (0-5); Hematocrit 39.9 % (40-54); Hemoglobin 13.7 g/dL (13.0-16.5); Lymphocyte # 1.55 X10^3/ul (0.83-4.51); Lymphocyte % 28.4 % (19-41); Mean Corp Hgb Conc 34.3 g/dL (32-36); Mean Corpuscular Hgb 31.2 pg (27.0-32.0); Mean Corpuscular Volume 90.9 fL (80-94); Mean Platelet Vol. 10.8 fl (6.2-12.0); Monocyte# 0.64 X10^3/uL; Monocyte% 11.7 % (0-10); NRBC Flagged by Analyzer 0 % (0-5); Neutrophil # 2.96 X10^3/uL (2.7-7.7); Neutrophil % 54.4 % (47-70); Platelet Count 236 K/mm3 (150-450); RBC Distribution Width CV 13.1 % (11.6-14.6); RBC Distribution Width SD 43.4 fl (35.1-43.9); Red Blood Count 4.39 M/mm3 (4.6-6.2); White Blood Count 5.5 K/mm3 (4.4-11.0)
[2021-01-23 10:48] LABS: AST(SGOT) 33 U/L (15-37); Alanine Aminotransfer ALT/SGPT 59 U/L (16-61); Albumin, Serum 3.7 g/dL (3.2-5.0); Alkaline Phosphatase 81 U/L (45-117); Anion Gap 3 (5-15); BUN 29 mg/dL (7-18); BUN/Creat Ratio 18.8 RATIO (10-20); Chloride 106 mmol/L (98-107); Cholesterol 114 mg/dL (200); Creatinine, Serum 1.54 mg/dL (0.70-1.30); EST Glomerular Filtration Rate 48 mL/min (>60); Est Glom Filt Rate - Afr Amer 58 mL/min (>60); Globulin 3.8 g/dL (2.2-4.2); Glucose 101 mg/dL (74-106); High Density Lipoprotein 33 mg/dL; PSA,Total - Annual Screen 1.69 ng/mL (0.00-4.00); Potassium 4.2 mmol/L (3.5-5.1); Protein, Total 7.5 g/dL (6.4-8.2); Sodium Level 135 mmol/L (136-145); Triglycerides 106 mg/dL; Very Low Density Lipoprotein 21 mg/dL (5-40)
[2021-01-23 10:55] LABS: Hemoglobin A1c 5.9 % (3.8-5.6)
== END ==
PROVIDERS: PCP Internal Medicine; Referring Provider Internal Medicine; Visit Provider Internal Medicine
DX: I10 Essential (primary) hypertension (principal); I25.10 Atherosclerotic heart disease of native coronary artery without angina pectoris; R73.09 Other abnormal glucose; Z12.5 Encounter for screening for malignant neoplasm of prostate
CPT/HCPCS: 36415; 80053; 80061; 83036; 84153; 85025; G0103

== ENCOUNTER 2021-03-14 09:04 | Outpatient (RCR) | payer MEDICARE, OTHER, SELFPAY ==
[2021-02-15 08:25] VITALS: BMI 34.7
[2021-03-06 10:21] LABS: International Normalized Ratio 1.2; Prothrombin Time (Protime)PT. 14.1 SECONDS (11.7-14.9)
[2021-03-14 09:42] LABS: International Normalized Ratio 1.3; Prothrombin Time (Protime)PT. 15.5 SECONDS (11.7-14.9)
== END 2021-03-14 18:00 | disposition home or self-care (01) ==
LOC: LAB 09:04
PROVIDERS: Nurse Practitioner Gerontology; PCP Internal Medicine; Referring Provider Internal Medicine Cardiovascular Disease; Visit Provider Internal Medicine Cardiovascular Disease
DX: I48.19 Other persistent atrial fibrillation (principal); Z79.01 Long term (current) use of anticoagulants
CPT/HCPCS: 36415; 85610

== ENCOUNTER 2021-04-11 09:27 | Outpatient (RCR) | payer MEDICARE, OTHER, SELFPAY ==
[2021-03-20 19:42] VITALS: BMI 34.7
[2021-03-21 09:21] LABS: International Normalized Ratio 1.2
[2021-04-04 08:32] LABS: International Normalized Ratio 1.4
[2021-04-11 10:48] LABS: International Normalized Ratio 1.5; Prothrombin Time (Protime)PT. 17.3 SECONDS (11.7-14.9)
== END 2021-04-11 18:00 | disposition home or self-care (01) ==
LOC: LAB 09:27
PROVIDERS: PCP Internal Medicine; Referring Provider Internal Medicine Cardiovascular Disease; Visit Provider Internal Medicine Cardiovascular Disease
DX: I48.19 Other persistent atrial fibrillation (principal); Z79.01 Long term (current) use of anticoagulants
CPT/HCPCS: 36415; 85610

== ENCOUNTER 2021-04-22 22:33 | Emergency (ER) | payer MEDICARE, OTHER, SELFPAY ==
[2021-04-22 22:35] VITALS: BP 144/85; PULSE 69; RESP 14; TEMP 36; O2SAT 97; BMI 34.9
--- NOTE | 2021-04-22 22:45 | EKG12_ITS ---
Test Reason : PALPITATIONS Blood Pressure : / mmHG Vent. Rate : 059 BPM Atrial Rate : 059 BPM P-R Int : 184 ms QRS Dur : 100 ms QT Int : 380 ms P-R-T Axes : 029 051 026 degrees QTc Int : 376 ms Sinus bradycardia Otherwise normal ECG Confirmed by GEORGIA SALVADOR, LOKESH ([id number]), art editor CORA LOZANO ([id number]) on 04/24/2021 7:38:35 AM Referred By: DEANNA Confirmed By:LOKESH HO MD
--- NOTE | 2021-04-22 22:50 | ED.VIS.CHEST ---
HPI History of Present Illness Chief Complaint: Palpitations Informant: patient Onset/Context/Timing Onset: Weeks Activity at onset: gradual Timing: Intermittent Worsened By: Nothing Relieved By: Nothing Associated Symptoms: Positive for Palpitations; Negative for Nausea, Vomiting, Diaphoresis, Dyspnea, Cough, Fever, Lightheadedness and Acid Reflux Narrative Narrative: 71-year-old male history of A. fib previously cardioverted. Patient has a history of hypertension. He is on Coumadin. Patient states for the last month primarily in March he noticed palpitations. Denied any chest pain. No shortness of breath. No leg swelling. He was cardioverted in the past when he was diagnosed with A. fib. 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 New onset atrial fibrillation (09/23/20) Nonrheumatic aortic (valve) stenosis Obesity Paroxysmal atrial fibrillation with rapid ventricular response Persistent atrial fibrillation Stage III chronic kidney disease Tachy-noah syndrome Type 2 diabetes mellitus Home Medications amlodipine 5 mg PO DAILY 09/24/20 [History Last Taken Unknown] atorvastatin 20 mg PO QHS 09/24/20 [History Last Taken Unknown] lisinopril-hydrochlorothiazide 1 ea PO DAILY 09/24/20 [History Last Taken Unknown] metoprolol tartrate 50 mg PO BID #60 tab 09/25/20 [Rx Last Taken Unknown] metformin 500 mg tablet 500 mg PO DAILY tablet 10/17/20 [History Last Taken Unknown] warfarin 6 mg PO SUMOTUFRSA 04/22/21 [History Last Taken Unknown] warfarin 8 mg PO WETH 04/22/21 [History Last Taken Unknown] Allergy/AdvReac Type Severity Reaction Status Date / Time No Known Allergies Allergy Verified 04/22/21 22:34 Family History Brother , from [place] age 47 Myocardial infarction, Onset Age: 47 Surgical History History of cardioversion (10/30/20) History of cataract surgery History of tonsillectomy Social History Smoking Status: Never smoker ROS ROS ED ROS Narrative Palpitations otherwise is felt fine. Review of Systems ROS Unobtainable: Denies due to encephalopathy Constitutional Constitutional ED: Denies fever(s) Eyes Eyes: Denies none ENT ENT ED: Denies ear pain Cardiovascular Cardiovascular: Reports as per HPI and palpitations; Denies chest pain Respiratory/Chest Respiratory/Chest: Denies cough or dyspnea Gastrointestinal Gastrointestinal: Denies abdominal pain, diarrhea, nausea or vomiting Genitourinary Genitourinary ED: Denies dysuria Musculoskeletal Musculoskeletal: Denies myalgias Integumentary Denies rash Neurologic Neurologic: Denies headache(s) Psychiatric Psychiatric: Denies depression Endocrine Endocrinology: Denies polyuria Hematologic/Lymphatic Hematologic/Lymphatic: Denies easy bruising Allergic/Immunologic Allergic/Immunologic ED: Denies urticaria EXAM Physical Exam Narrative Exam Narrative: 8-year-old male no acute distress vital signs stable afebrile. Heart rate 69 sinus rhythm on monitor. Sat 97%. Lungs are clear. Heart regular rate rhythm rate about 69. Has a mild 3/6 systolic ejection murmur. Abdomen soft nontender. Moving all 4 extremities. Calves are nontender without edema or cords. Neurologically awake and alert with no focal motor deficits. Patient clinically looks well. Const Vital Signs: 04/22/21 22:35 04/22/21 23:00 Temperature 96.8 F L Temperature Source Temporal Pulse Rate 69 Respiratory Rate 14 Respiratory Pattern Normal Blood Pressure 144/85 H Blood Pressure Mean 104 Pulse Ox 97 Oxygen Delivery Method Room Air Room Air Positive well nourished and well developed; Negative for cachectic, contractures or unkempt General Appearance ED: well developed and NAD; Negative for unkempt, cachectic, contractures or pallor Nutritional Appearance: Negative for cachectic HEENT Reports moist mucous membranes normocephalic Eyes PERRL and EOMs intact bilaterally Neck no lymphadenopathy, supple and no JVD General: Negative for tenderness Chest Wall inspection of chest normal and palpation of chest normal Resp normal respiratory effort and clear to auscultation bilaterally Effort and Inspection: respiratory distress Auscultation: Negative for rales, rhonchi or wheezes Cardio regular rate, regular rhythm, S1 normal heart sound and S2 normal heart sound; Negative for no murmurs Rate: other Other Details: Patient is a 3/6 systolic ejection murmur. GI normal to inspection, nondistended, normoactive bowel sounds, soft to palpation, non-tender, non-distended and no masses; Negative for hepatosplenomegaly Auscultation: Negative for hyperactive bowel sounds Back/Spine no CVA tenderness Extremity normal to inspection General Extremety ED: Negative for edema or tenderness General Extremity: Negative for edema Neuro oriented x3 Sensorium / Orientation: awake, alert, oriented to person, oriented to place and oriented to time Motor Exam: strength 5/5 throughout Psych mental status grossly normal Appearance: Negative for unkempt Mood & Affect: Negative for depressed or tearful Skin no rashes or lesions noted and no wounds General Skin Exam: Negative for jaundice or pallor MDM MDM MDM Narrative Medical decision making narrative: 71-year-old male with a history of A. fib intermittent palpitations for the last several weeks. No chest pain no shortness of breath. Currently exam is unremarkable and he is in a sinus rhythm rate about 60. Undergoing cardiac work-up. Most likely we will be discharged home. He is on warfarin a level be checked. Repeat exam patient is doing well at 11:29 PM. Will be discharged to home. We went over his test results. Follow-up as needed. Return if worse. Lab Data Attestation: I reviewed the patient's lab results. Lab results narrative: CBC shows a white count of 7. Hemoglobin 13.7. PT/INR of 21 and 2.0 so mildly subtherapeutic on anticoagulation for the A. fib. Electrolytes unremarkable gap is 7. Creatinine is elevated 1.66 glucose 134 and troponin is normal at 11. Labs: Laboratory Results - last 24 hr 04/22/21 04/22/21 04/22/21 22:45 22:45 22:45 WBC 7.7 RBC 4.33 L Hgb 13.7 Hct 40.6 MCV 93.8 MCH 31.6 MCHC 33.7 RDW Std Deviation 44.3 H RDW Coeff of Jo-Ann 12.8 Plt Count 230 MPV 10.3 Immature Gran % (Auto) 0.300 Neut % (Auto) 52.6 Lymph % (Auto) 30.6 [place] % (Auto) 13.0 H Eos % (Auto) 3.2 Baso % (Auto) 0.3 Absolute Neuts (auto) 4.1 Absolute Lymphs (auto) 2.36 Nucleated RBC % 0 PT 21.7 H INR 2.0 Sodium 139 Potassium 4.1 Chloride 106 Carbon Dioxide 26.0 Anion Gap 7 BUN 32 H Creatinine 1.66 H Estim Creat Clear Calc 42.75 Est GFR (MDRD) Af Amer 53 L Est GFR (MDRD) Non-Af 44 L BUN/Creatinine Ratio 19.3 Glucose 134 H Calcium 9.3 Troponin I High Sens 11 Radiography Chest X-Ray - ED: 1 View, Read by ED Physician, Heart, Lungs, Mediastinum, Bony Structures, No Acute Disease and Chronic Changes Diagnostic Testing: Portable chest x-ray single view interpreted by myself shows chronic changes no acute process. Rhythm Strip Rhythm Strip: Sinus Rhythm Rate: 59 Ectopy: None EKG Initial EKG: Attestation: I personally reviewed and interpreted this EKG as follows: Interpretation: Sinus Rhythm, No Acute Injury Pattern and Sinus Bradycardia Comments: Sinus bradycardia rate of 59 no acute signs of IN or ischemia. Unchanged from prior EKG from September of this year. Prior: Unchanged Discharge Plan Triage Chief Complaint: Palpitations ED Provider: James Menendez Dx/Rx/DC Orders Clinical Impression: Heart palpitations, History of atrial fibrillation, Anticoagulated on Coumadin Instructions: ED Palpitations Prescriptions: No Action atorvastatin 20 MG tablet 20 mg PO QHS RF: 0 lisinopril-hydrochlorothiazide 1 EACH tablet 1 ea PO DAILY RF: 0 amlodipine 5 MG tablet 5 mg PO DAILY RF: 0 metoprolol tartrate 50 MG tablet 50 mg PO BID Qty: 60 RF: 1 metformin 500 mg tablet 500 mg PO DAILY RF: 0 warfarin 4 mg Tablet 6 mg PO SUMOTUFRSA RF: 0 warfarin 4 mg tablet 8 mg PO WETH RF: 0 Primary Care Provider: Gertrudis Flowers Referrals: Gertrudis Flowers DO [Primary Care Provider] - As Needed Activity Restrictions/Additional Instructions: Follow-up with 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 Your exam and work-up tonight were unremarkable. Disposition Disposition: Home, Self Care
[2021-04-22 22:58] LABS: Absolute Lymphocyte Count 2.36 X10^3/uL (0.83-4.51); Absolute Neutrophil Count 4.1 X10^3/uL (2.0-7.7); Basophil# 0.02 X10^3/uL; Basophil% 0.3 % (0-1); Eosinophil# 0.25 X10^3/uL; Eosinophils% 3.2 % (0-5); Hematocrit 40.6 % (40-54); Hemoglobin 13.7 g/dL (13.0-16.5); Lymphocyte # 2.36 X10^3/ul (0.83-4.51); Lymphocyte % 30.6 % (19-41); Mean Corp Hgb Conc 33.7 g/dL (32-36); Mean Corpuscular Hgb 31.6 pg (27.0-32.0); Mean Corpuscular Volume 93.8 fL (80-94); Mean Platelet Vol. 10.3 fl (6.2-12.0); NRBC Flagged by Analyzer 0 % (0-5); Neutrophil # 4.06 X10^3/uL (2.7-7.7); Neutrophil % 52.6 % (47-70); Platelet Count 230 K/mm3 (150-450); RBC Distribution Width CV 12.8 % (11.6-14.6); RBC Distribution Width SD 44.3 fl (35.1-43.9); Red Blood Count 4.33 M/mm3 (4.6-6.2); White Blood Count 7.7 K/mm3 (4.4-11.0)
--- NOTE | 2021-04-22 23:03 | RAD_ITS ---
STUDY: X-RAY CHEST REASON FOR EXAM: Male, 71 years old. chest pain TECHNIQUE: Single AP portable view of the chest. COMPARISON: 09/23/2020 FINDINGS: The lungs are clear and expanded. There is no demonstrated pleural abnormality. Normal size heart. Normal mediastinum and yandy. Normal visualized pulmonary arteries. Normal visualized aortic arch and descending thoracic aorta. Normal visualized thoracic spine. Normal visualized ribs, clavicles, and shoulders. There is no demonstrated abnormality of the visualized soft tissue structures of the upper abdomen. RAD/Chest 1 View (Portable) IMPRESSION: Normal x-ray examination of the chest. Electronically Signed: James Rooney DO at 23:44 EDT Tel , Service support ,
[2021-04-22 23:05] LABS: Prothrombin Time (Protime)PT. 21.7 SECONDS (11.7-14.9)
[2021-04-22 23:17] LABS: Anion Gap 7 (5-15); BUN 32 mg/dL (7-18); BUN/Creat Ratio 19.3 RATIO (10-20); Calcium,Total 9.3 mg/dL (8.5-10.1); Chloride 106 mmol/L (98-107); Creatinine, Serum 1.66 mg/dL (0.70-1.30); EST Glomerular Filtration Rate 44 mL/min (>60); Est Glom Filt Rate - Afr Amer 53 mL/min (>60); Estimated Creatinine Clearance 42.75 ml/min; Glucose 134 mg/dL (74-106); Potassium 4.1 mmol/L (3.5-5.1); Sodium Level 139 mmol/L (136-145); Troponin-I HS 11 pg/mL (3.0-78.0)
[2021-04-22 23:46] VITALS: BP 107/74; PULSE 56; RESP 16; O2SAT 95
== END 2021-04-22 23:47 | disposition home or self-care (01) ==
LOC: ED 23:34
PROVIDERS: Emergency Provider Emergency Medicine; PCP Internal Medicine
DX: R00.2 Palpitations (principal); Z79.01 Long term (current) use of anticoagulants; E11.22 Type 2 diabetes mellitus with diabetic chronic kidney disease; E78.5 Hyperlipidemia, unspecified; I12.9 Hypertensive chronic kidney disease with stage 1 through stage 4 chronic kidney disease, or unspecified chronic kidney disease; I48.0 Paroxysmal atrial fibrillation; N18.30 Chronic kidney disease, stage 3 unspecified; I35.0 Nonrheumatic aortic (valve) stenosis; Z79.84 Long term (current) use of oral hypoglycemic drugs; Z86.711 Personal history of pulmonary embolism
CPT/HCPCS: 71045; 80048; 84484; 85025; 85610; 93005; 99285; A4216

== ENCOUNTER → 2021-05-03 08:07 | Outpatient (CLI) | payer MEDICARE, OTHER, SELFPAY ==
[2021-05-03 10:40] LABS: Absolute Lymphocyte Count 1.48 X10^3/uL (0.83-4.51); Absolute Neutrophil Count 3.3 X10^3/uL (2.0-7.7); Basophil# 0.03 X10^3/uL; Basophil% 0.5 % (0-1); Eosinophil# 0.24 X10^3/uL; Eosinophils% 4.2 % (0-5); Hematocrit 40.2 % (40-54); Hemoglobin 13.7 g/dL (13.0-16.5); Lymphocyte # 1.48 X10^3/ul (0.83-4.51); Lymphocyte % 25.9 % (19-41); Mean Corp Hgb Conc 34.1 g/dL (32-36); Mean Corpuscular Hgb 31.4 pg (27.0-32.0); Mean Corpuscular Volume 92.2 fL (80-94); Mean Platelet Vol. 10.9 fl (6.2-12.0); Monocyte# 0.63 X10^3/uL; NRBC Flagged by Analyzer 0 % (0-5); Neutrophil # 3.33 X10^3/uL (2.7-7.7); Neutrophil % 58.2 % (47-70); Platelet Count 244 K/mm3 (150-450); RBC Distribution Width SD 44.1 fl (35.1-43.9); Red Blood Count 4.36 M/mm3 (4.6-6.2); White Blood Count 5.7 K/mm3 (4.4-11.0)
[2021-05-03 10:46] LABS: International Normalized Ratio 1.7; Prothrombin Time (Protime)PT. 18.8 SECONDS (11.7-14.9)
[2021-05-03 10:59] LABS: ALB/GLOB Ratio 0.9 RATIO (0.9-2.4); AST(SGOT) 26 U/L (15-37); Alanine Aminotransfer ALT/SGPT 59 U/L (16-61); Albumin, Serum 3.5 g/dL (3.2-5.0); Alkaline Phosphatase 72 U/L (45-117); Anion Gap 7 (5-15); BUN 31 mg/dL (7-18); BUN/Creat Ratio 22.1 RATIO (10-20); Calcium,Total 9.4 mg/dL (8.5-10.1); Chloride 105 mmol/L (98-107); Cholesterol 117 mg/dL (200); EST Glomerular Filtration Rate 53 mL/min (>60); Est Glom Filt Rate - Afr Amer 64 mL/min (>60); Globulin 3.9 g/dL (2.2-4.2); Glucose 106 mg/dL (74-106); High Density Lipoprotein 33 mg/dL; Potassium 4.1 mmol/L (3.5-5.1); Protein, Total 7.4 g/dL (6.4-8.2); Sodium Level 136 mmol/L (136-145); Triglycerides 101 mg/dL; Very Low Density Lipoprotein 20 mg/dL (5-40)
[2021-05-03 11:00] LABS: Hemoglobin A1c 5.9 % (3.8-5.6); Microalbumin,Random Urine 8.8 mg/L (NO RANGE EST.); Microalbumin:Creatinine Ratio 7.2 mg/g CRE (<30 mg/g CRE)
[2021-05-04 13:31] LABS: AFP, Tumor Marker 1.5 ng/mL (0.0-8.3)
== END ==
PROVIDERS: Internal Medicine Cardiovascular Disease; PCP Internal Medicine; Referring Provider Internal Medicine; Visit Provider Internal Medicine
DX: R73.09 Other abnormal glucose (principal); I10 Essential (primary) hypertension; E78.00 Pure hypercholesterolemia, unspecified; K76.0 Fatty (change of) liver, not elsewhere classified; I48.19 Other persistent atrial fibrillation; Z79.01 Long term (current) use of anticoagulants
CPT/HCPCS: 36415; 80053; 80061; 82043; 82105; 82570; 83036; 85025; 85610

== ENCOUNTER 2021-05-18 07:53 | Outpatient (RCR) | payer MEDICARE, OTHER, SELFPAY ==
[2021-04-19 18:28] VITALS: BMI 34.7
[2021-04-20 10:51] LABS: International Normalized Ratio 1.9
[2021-05-18 09:07] LABS: Absolute Lymphocyte Count 0.74 X10^3/uL (0.83-4.51); Absolute Neutrophil Count 7.2 X10^3/uL (2.0-7.7); Basophil# 0.03 X10^3/uL; Basophil% 0.3 % (0-1); Eosinophil# 0.16 X10^3/uL; Eosinophils% 1.8 % (0-5); Hematocrit 40.8 % (40-54); Hemoglobin 14.2 g/dL (13.0-16.5); Lymphocyte # 0.74 X10^3/ul (0.83-4.51); Lymphocyte % 8.4 % (19-41); Mean Corp Hgb Conc 34.8 g/dL (32-36); Mean Corpuscular Hgb 32.1 pg (27.0-32.0); Mean Corpuscular Volume 92.1 fL (80-94); Mean Platelet Vol. 10.6 fl (6.2-12.0); Monocyte# 0.69 X10^3/uL; Monocyte% 7.8 % (0-10); NRBC Flagged by Analyzer 0 % (0-5); Neutrophil # 7.15 X10^3/uL (2.7-7.7); Neutrophil % 81.4 % (47-70); Platelet Count 226 K/mm3 (150-450); RBC Distribution Width CV 12.8 % (11.6-14.6); RBC Distribution Width SD 43.5 fl (35.1-43.9); Red Blood Count 4.43 M/mm3 (4.6-6.2); White Blood Count 8.8 K/mm3 (4.4-11.0)
[2021-05-18 09:13] LABS: Prothrombin Time (Protime)PT. 21.5 SECONDS (11.7-14.9)
[2021-05-18 09:14] LABS: Partial Thromboplast Time 34.8 Seconds (24.1-36.2)
[2021-05-18 09:26] LABS: Anion Gap 6 (5-15); BUN 30 mg/dL (7-18); BUN/Creat Ratio 20.4 RATIO (10-20); Calcium,Total 9.8 mg/dL (8.5-10.1); Chloride 105 mmol/L (98-107); Creatinine, Serum 1.47 mg/dL (0.70-1.30); EST Glomerular Filtration Rate 50 mL/min (>60); Est Glom Filt Rate - Afr Amer 61 mL/min (>60); Glucose 122 mg/dL (74-106); Potassium 4.5 mmol/L (3.5-5.1); Sodium Level 137 mmol/L (136-145)
== END 2021-05-20 03:21 | disposition home or self-care (01) ==
LOC: LAB 07:53
PROVIDERS: Nurse Practitioner Gerontology; PCP Internal Medicine; Referring Provider Internal Medicine Cardiovascular Disease; Visit Provider Internal Medicine Cardiovascular Disease
DX: I48.19 Other persistent atrial fibrillation (principal); Z79.01 Long term (current) use of anticoagulants
CPT/HCPCS: 36415; 80048; 85025; 85610; 85730

== ENCOUNTER → 2021-05-23 12:12 | Outpatient (CLI) | payer MEDICARE, OTHER, SELFPAY ==
--- NOTE | 2021-05-23 12:17 | US_ITS ---
STUDY: ABDOMINAL ULTRASOUND - RIGHT UPPER QUADRANT REASON FOR VISIT: Male, 71 years old FATTY LIVER TECHNIQUE: Ultrasound evaluation of the right upper quadrant was performed with real-time and static hodges-scale imaging. TECHNICAL QUALITY: Adequate. COMPARISON: Comparison is made with prior study dated 01/31/2020. FINDINGS: Liver: The liver measures 15.4 cm. There is increased echogenicity consistent with fatty infiltration. The bile ducts are within normal limits. There is hepatic color flow. The direction of portal flow is hepatopetal. There is no demonstrated mass lesion. Gallbladder: Normal distended gallbladder. The gallbladder wall measures 4 mm. There is a negative sonographic Mittal''s sign. There is no pericholecystic fluid. There are no gallstones. Common Bile Duct (C.B.D.): The common bile duct measures 4 mm. Pancreas: Normal size of the head, body and tail of the pancreas. There is normal echogenicity of the pancreas. There is no demonstrated pancreatic mass or cyst. Right Kidney: Normal size of the right kidney. The right kidney measures 10.4 cm x 6.2 cm x 6.3 cm. Normal renal cortex. The right cortex measures 1.8 cm. There is no demonstrated renal mass or cyst. There is no right hydronephrosis. US/Liver IMPRESSION: Diffuse fatty infiltration of the liver. Electronically Signed: Artie Gray MD at 15:01 EDT , Service support ,
== END ==
PROVIDERS: PCP Internal Medicine; Referring Provider Internal Medicine; Visit Provider Internal Medicine
DX: K76.0 Fatty (change of) liver, not elsewhere classified (principal)
CPT/HCPCS: 76705

== ENCOUNTER → 2021-05-24 13:50 | Outpatient (CLI) | payer MEDICARE, OTHER, SELFPAY ==
--- NOTE | 2021-05-24 13:53 | CDU_ITS ---
Reason For Study: carotid stenosis Rt. Velocities/BP Lt. Velocities/BP Prox CCA 83.9/21.3 cm/sec. Prox CCA 98.2/27.8 cm/sec. Mid CCA 90.4/22.6 cm/sec. Mid CCA 94.3/27.8 cm/sec. Dist CCA 78.6/21.3 cm/sec. Dist CCA 78.6/26.5 cm/sec. Prox ICA 81.2/18.6 cm/sec. Prox ICA 65.6/18.6 cm/sec. Mid ICA 74.7/18.6 cm/sec. Mid ICA 63.0/20.0 cm/sec. Dist ICA 53.9/20.0 cm/sec. Dist ICA 72.1/30.4 cm/sec. Rt. ICA/CCA = .9. Lt. ICA/CCA = .8. Prox ECA 103.4/14.7 cm/sec. Prox ECA 60.4/12.1 cm/sec. Rt. Vert. 36.9/9.5 cm/sec. Lt. Vert. 46.0/14.7 cm/sec. Right Extracranial There is intimal thickening but no significant atherosclerotic plaque noted in the right common carotid artery. There is homogeneous, smooth atherosclerotic plaque noted in the right internal carotid artery. There is heterogeneous, irregular atherosclerotic plaque noted in the right external carotid artery. Antegrade flow is noted in the right vertebral artery. There is heterogeneous, irregular atherosclerotic plaque noted in the right bulb. Left Extracranial There is intimal thickening but no significant atherosclerotic plaque noted in the left common carotid artery. There is heterogeneous, smooth atherosclerotic plaque noted in the left internal carotid artery. There is heterogeneous, irregular atherosclerotic plaque noted in the left external carotid artery. Antegrade flow is noted in the left vertebral artery. There is heterogeneous, irregular atherosclerotic plaque noted in the left bulb. Procedure Carotid Duplex [id number]. This is a Carotid Duplex examination using B-mode, color flow and specral Doppler. The exam was diagnostic. Exam performed in department. VL/Carotid Duplex Ultrasound Interpretation Summary Smooth plague at the proximal right internal carotid with <50% stenosis <50% stenosis right external carotid Heterogenous smooth plague at the proximal left internal carotid with <50% sten osis <50% stenosis left external carotid Patent, antegrade vertebrals bilaterally No change from 01/31/20 Ordering Physician: Gertrudis Flowers Performed By: Terence Land RVT
== END ==
PROVIDERS: PCP Internal Medicine; Referring Provider Internal Medicine; Visit Provider Internal Medicine
DX: I65.23 Occlusion and stenosis of bilateral carotid arteries (principal)
CPT/HCPCS: 93880

== ENCOUNTER 2021-06-04 09:49 | Day surgery (SDC) | payer MEDICARE, OTHER, SELFPAY ==
[2021-05-31 11:53] VITALS: BMI 34.8
--- NOTE | 2021-06-04 09:31 | HP.PCM_ITS ---
History and Physical Date of Admission: 06/04/21 This is a 71-year-old gentleman that presents here today for a diagnostics heart cath for VT that was noted on his 30 day event monitor. He does have a history of hypertension, paroxysmal atrial fibrillation, aortic stenosis. He was previously converted with his atrial fibrillation in November 2020. Pt notes that in March he was having more frequent spasms. He thought it was Afib. He did hold his coumadin prior to today. 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 New onset atrial fibrillation (09/23/20) Nonrheumatic aortic (valve) stenosis Obesity PAF (paroxysmal atrial fibrillation) Paroxysmal atrial fibrillation with rapid ventricular response Persistent atrial fibrillation Stage III chronic kidney disease Tachy-noah syndrome Type 2 diabetes mellitus Surgical History History of cardioversion (10/30/20) History of cataract surgery History of tonsillectomy Family History Brother , from [place] age 47 Myocardial infarction, Onset Age: 47 Social History Smoking Status: Never smoker ROS Const Const: Negative for fatigue, weakness, headache(s), frequent falls, excessive sweating, weight gain or weight loss Eyes Eyes: Negative for blind spots, loss of peripheral vision, transient loss of vision, blurry vision, change in vision or double vision ENT ENT: Negative for headache(s), dizziness, tinnitus, Nosebleed/epistaxis or balance problems Cardio Chest Pain: No Palpitations: Yes Edema: None Muscle aches with walking: None Resp Respiratory: Negative for SOB with activity, SOB at rest, SOB orthopnea\SOB lying down or Cough GI GI: Negative nausea, vomiting, heartburn, bloating, vomiting blood/hematemesis, bright, red blood in stools or black,tarry stools : Negative for hematuria Musc Musc: Negative for muscle aches/ myalgia, muscle weakness, joint pain or balance problems Skin Skin: Negative rash or wounds Neuro Neuro: Negative for dizziness, lightheadedness, near syncope, syncope, orthost atic symptoms, frequent falls, headache(s), weakness, confusion, memory loss, restless legs, blurry vision or double vision [place] Hematologic/Lymphatic: Negative for easy bleeding or easy bruising Endo Endo: Negative for fatigue, cold intolerance, heat intolerance or excessive sweating Psych Psych: Negative for anxiety or depression Allergy Allergy/Immunology: Negative for rash Cardiology Exam Const Appearance: cooperative, healthy appearing, comfortable, no acute distress and well developed Orientation: alert, awake and oriented x3 Head Head: normal to inspection Ears: hearing grossly normal bilaterally Nose: external nose normal Face and Sinus: face symmetric Mouth: oral mucosae normal, lip normal and moist mucous membranes Eyes General: appearance normal, both eyes and all related structures Eyelids: eyelids normal Conjunctivae: conjunctivae normal Pupils: PERRL EOM: EOM intact bilaterally Neck Neck: normal visual inspection and trachea midline; Negative no JVD Carotids: Negative bruit Chest Chest inspection: normal inspection of the chest Auscultation: Bilateral: Clear to Auscultation Cardio Palpation: normal PMI Rate: bradycardic Rhythm: regular rhythm Heart sounds: S1 normal, S2 normal and murmur; Negative rub or gallop Murmur: Grade 2/6, harsh and mid systolic GI GI: soft, no hepatosplenomegaly and bowel sounds present Neuro General: patient alert, patient awake, patient oriented x3 and CN's II-XI intact bilaterally Extremities Pulses: Normal: Right Posterior Tibial Pulse, Left Posterior Tibial Pulse, Right Radial Pulse and Left Radial Pulse Lower Extremity Edema: None: Bilateral Psych Psychological: normal affect Supplemental information: Echocardiogram 2020: Normal LV size. Left ventricular systolic function is normal. The estimated ejection fraction is 65 %. Mild focal aortic valve calcification. Mild aortic stenosis. Calculated aortic valve area (continuity equation) is 1.2 cm2. Pulmonary artery systolic pressure is 28 mmHg. Stress test 2020: Exercise myocardial perfusion stress test with no evidence of ischemia noted at a moderate workload. Atrial fibrillation with a controlled ventricular response rate present. Good blood pressure response to exercise. Date of Study:: 09/22/18 Coronary Calcium Scoring: Coronary calcium scoring. 68-year-old man with a history of hypertension. High-resolution computed tomographic imaging of the chest was performed on 09/22/2018 with particular attention paid to the coronary arteries. Images from the examination were analyzed for the presence and extent of coronary artery calcification using the coronary consultation quantification software. The patient tolerated the procedure well there were no complications. The results of the coronary calcification analysis are provided. Coronary artery Left main 9.9 Left anterior descending artery 183 Left circumflex artery 29 Right coronary artery 3 Total Agaston score to 25. The above has a percentile ranking of between 50 and 75%. The total calcium score suggest that there is moderate plaque burden with nonobstructive coronary disease likely. Assessment & Plan Assessment/Plan (1) Nonsustained paroxysmal ventricular tachycardia: (2) Essential (primary) hypertension: (3) Nonrheumatic aortic (valve) stenosis: (4) Hyperlipidemia: (5) PAF (paroxysmal atrial fibrillation): PLAN: Plan of care will be based on heart cath today.
[2021-06-04 10:06] LABS: INR Fingerstick 1.2; Prothrombin Time Fingerstick 14.2 SEC (11.9-14.4)
--- NOTE | 2021-06-04 11:39 | CL.D_ITS ---
Patient Name: SHANDA VARGAS Study Date: 06/04/2021 Performing: Dutch Barrett MD Ht: 70 inches 178 cm : 1950 Wt: 242.8 lbs 110 kg Age: 71 Gender: male BSA: 2.27 PROCEDURE(S) PERFORMED [id number]/LV CLINICAL PROFILE AND INDICATIONS Indications: Suspected CAD Heart Failure: None Stress/Imaging Date: 05/01/2020Stress Test with SPECT MPI: Negative CAD Presentations: Symptom unlikely to be ischemic. CONCLUSIONS Non obstructive coronary arteries Normal LV size, wall motion,and systolic function RECOMMENDATIONS Medical therapy DESCRIPTION OF PROCEDURE The patient arrived to the procedure lab. The risks and benefits of the procedure as well as a full d escription of our services here and current unavailability of surgical backup were fully explained to the patient and/or their significant other prior to the catheterization. The Timeout was completed, verifying the correct patient and procedure. The patient's procedural site was prepped and draped in the usual fashion. Local anesthetic was given subcutaneously to right radial region with Lidocaine 2% - dr. brown. Using a modified Seldinger technique, arterial access was obtained via the right ra dial artery, a 6Fr sheath was inserted. - DR BROWN Right Coronary Artery selective angiography w as then performed in multiple views using a 5 Fr. 4.0 [place] catheter. Left Coronary Artery selective angiography was performed in multiple views using a 5 Fr. 4.0 [place] catheter. Left Ventriculography w as performed in SCHROEDER projection using a 5 Fr. Pigtail catheter. LV to AO pullback pressures were then recorded.The arterial sheath was pulled and a TR Band was applied for hemostasis - 11cc air CORONARY ANGIOGRAPHY DOMINANCE: Right Dominant LEFT HEART ASSESSMENT Left Ventricular Ejection Fraction: by LV Gram 55 % Normal LV wall motion Normal Left Ventricular systolic function Transient V. fib that responded to defibrillation LEFT MAIN: Mild calcification, No significant disease noted LEFT ANTERIOR DESCENDING ARTERY: Mild luminal irregularities less than 30% CIRCUMFLEX ARTERY: Mild luminal irregularities less than 30% RIGHT CORONARY ARTERY: Mild luminal irregularities less than 30% AORTIC ROOT: Angiographically normal COMPLICATIONS No Complications PROCEDURE MEDICATIONS Fentanyl 50 mcg IV Versed 1 mg IV Oxygen: 2 L/min via nasal cannula Heparin given IA 06/04/2021 11:06:21 SUMMARY OF HEMODYNAMIC DATA Time AIR REST ECG 10:22:50 AO 162/102 (126) SA 11:17:03 LV 126/9, 18 11:23:10 LV 125/12, 21 11:23:29 LV 126/14, 23 11:23:35 LVp 114/12, 21 11:23:40 AOp 103/58 (79) 11:23:45 Signed By Dutch Barrett MD On 06/04/2021 11:38:51 AM Dutch Barrett MD
== END 2021-06-04 15:34 | disposition home or self-care (01) ==
LOC: CLSP 09:50
PROVIDERS: PCP Internal Medicine; Referring Provider Internal Medicine Cardiovascular Disease; Visit Provider Internal Medicine Cardiovascular Disease
DX: I47.2 Ventricular tachycardia (principal); E78.5 Hyperlipidemia, unspecified; I48.0 Paroxysmal atrial fibrillation; I35.0 Nonrheumatic aortic (valve) stenosis; E11.22 Type 2 diabetes mellitus with diabetic chronic kidney disease; I12.9 Hypertensive chronic kidney disease with stage 1 through stage 4 chronic kidney disease, or unspecified chronic kidney disease; N18.30 Chronic kidney disease, stage 3 unspecified; Z79.01 Long term (current) use of anticoagulants; Z86.711 Personal history of pulmonary embolism
CPT/HCPCS: 36416; 85610; 93458; 99152; 99153; J7040; Q9967; C1769; C1894

== ENCOUNTER → 2021-06-11 08:18 | Outpatient (CLI) | payer MEDICARE, OTHER, SELFPAY ==
[2021-06-11 09:25] LABS: International Normalized Ratio 1.3; Prothrombin Time (Protime)PT. 15.8 SECONDS (11.7-14.9)
== END ==
PROVIDERS: PCP Internal Medicine; Referring Provider Internal Medicine Cardiovascular Disease; Visit Provider Internal Medicine Cardiovascular Disease
DX: I48.19 Other persistent atrial fibrillation (principal); Z79.01 Long term (current) use of anticoagulants
CPT/HCPCS: 36415; 85610

== ENCOUNTER 2021-06-19 07:15 | Outpatient (RCR) | payer MEDICARE, OTHER, SELFPAY ==
[2021-05-20 03:21] VITALS: BMI 34.7
[2021-06-19 08:01] LABS: International Normalized Ratio 1.7; Prothrombin Time (Protime)PT. 19.6 SECONDS (11.7-14.9)
== END 2021-06-19 18:00 | disposition home or self-care (01) ==
LOC: LAB 07:15
PROVIDERS: PCP Internal Medicine; Referring Provider Internal Medicine Cardiovascular Disease; Visit Provider Internal Medicine Cardiovascular Disease
DX: I48.19 Other persistent atrial fibrillation (principal); Z79.01 Long term (current) use of anticoagulants
CPT/HCPCS: 36415; 85610

== ENCOUNTER 2021-07-11 08:10 | Outpatient (RCR) | payer MEDICARE, OTHER, SELFPAY ==
[2021-06-20 01:59] VITALS: BMI 34.7
[2021-06-27 10:13] LABS: International Normalized Ratio 2.1; Prothrombin Time (Protime)PT. 22.4 SECONDS (11.7-14.9)
[2021-07-11 09:21] LABS: International Normalized Ratio 2.3; Prothrombin Time (Protime)PT. 24.2 SECONDS (11.7-14.9)
== END 2021-07-21 18:00 | disposition home or self-care (01) ==
LOC: LAB 08:10
PROVIDERS: PCP Internal Medicine; Referring Provider Internal Medicine Cardiovascular Disease; Visit Provider Internal Medicine Cardiovascular Disease
DX: I48.19 Other persistent atrial fibrillation (principal); Z79.01 Long term (current) use of anticoagulants
CPT/HCPCS: 36415; 85610

== ENCOUNTER 2021-08-08 08:34 | Outpatient (RCR) | payer MEDICARE, OTHER, SELFPAY ==
[2021-07-22 03:35] VITALS: BMI 34.7
[2021-08-08 09:18] LABS: International Normalized Ratio 2.3; Prothrombin Time (Protime)PT. 24.3 SECONDS (11.7-14.9)
== END 2021-08-20 18:00 | disposition home or self-care (01) ==
LOC: LAB 08:34
PROVIDERS: PCP Internal Medicine; Referring Provider Internal Medicine Cardiovascular Disease; Visit Provider Internal Medicine Cardiovascular Disease
DX: I48.19 Other persistent atrial fibrillation (principal); Z79.01 Long term (current) use of anticoagulants
CPT/HCPCS: 36415; 85610

== ENCOUNTER 2021-08-13 09:25 | Outpatient (CLI) | payer MEDICARE, OTHER, SELFPAY ==
[2021-08-13 10:22] LABS: Absolute Lymphocyte Count 1.55 X10^3/uL (0.83-4.51); Basophil# 0.03 X10^3/uL; Basophil% 0.5 % (0-1); Eosinophil# 0.24 X10^3/uL; Eosinophils% 3.7 % (0-5); Hematocrit 42.5 % (40-54); Hemoglobin 14.6 g/dL (13.0-16.5); Lymphocyte # 1.55 X10^3/ul (0.83-4.51); Lymphocyte % 24.1 % (19-41); Mean Corp Hgb Conc 34.4 g/dL (32-36); Mean Corpuscular Hgb 31.3 pg (27.0-32.0); Mean Corpuscular Volume 91.2 fL (80-94); Mean Platelet Vol. 10.8 fl (6.2-12.0); Monocyte# 0.55 X10^3/uL; Monocyte% 8.6 % (0-10); NRBC Flagged by Analyzer 0 % (0-5); Neutrophil # 4.04 X10^3/uL (2.7-7.7); Neutrophil % 62.8 % (47-70); Platelet Count 248 K/mm3 (150-450); RBC Distribution Width CV 13.3 % (11.6-14.6); Red Blood Count 4.66 M/mm3 (4.6-6.2); White Blood Count 6.4 K/mm3 (4.4-11.0)
[2021-08-13 10:50] LABS: ALB/GLOB Ratio 0.9 RATIO (0.9-2.4); AST(SGOT) 34 U/L (15-37); Alanine Aminotransfer ALT/SGPT 74 U/L (16-61); Albumin, Serum 3.7 g/dL (3.2-5.0); Alkaline Phosphatase 80 U/L (45-117); Anion Gap 6 (5-15); BUN 27 mg/dL (7-18); BUN/Creat Ratio 17.4 RATIO (10-20); Calcium,Total 9.5 mg/dL (8.5-10.1); Chloride 108 mmol/L (98-107); Cholesterol 107 mg/dL (200); Creatinine, Serum 1.55 mg/dL (0.70-1.30); EST Glomerular Filtration Rate 47 mL/min (>60); Est Glom Filt Rate - Afr Amer 57 mL/min (>60); Globulin 3.9 g/dL (2.2-4.2); Glucose 103 mg/dL (74-106); High Density Lipoprotein 35 mg/dL; Potassium 4.4 mmol/L (3.5-5.1); Protein, Total 7.6 g/dL (6.4-8.2); Sodium Level 137 mmol/L (136-145); Triglycerides 86 mg/dL; Very Low Density Lipoprotein 17 mg/dL (5-40)
== END 2021-08-13 23:59 | disposition short-term general hospital (02) ==
LOC: MTLAB 09:26
PROVIDERS: PCP Internal Medicine; Referring Provider Internal Medicine; Visit Provider Internal Medicine
DX: R73.09 Other abnormal glucose (principal); E78.00 Pure hypercholesterolemia, unspecified
CPT/HCPCS: 36415; 80053; 80061; 83036; 85025

== ENCOUNTER 2021-09-05 14:34 | Outpatient (RCR) | payer MEDICARE, OTHER, SELFPAY ==
[2021-08-20 22:08] VITALS: BMI 34.7
[2021-09-05 15:13] LABS: International Normalized Ratio 3.1; Prothrombin Time (Protime)PT. 30.7 SECONDS (11.7-14.9)
== END 2021-09-05 18:00 | disposition home or self-care (01) ==
LOC: LAB 14:34
PROVIDERS: PCP Internal Medicine; Referring Provider Internal Medicine Cardiovascular Disease; Visit Provider Internal Medicine Cardiovascular Disease
DX: I48.19 Other persistent atrial fibrillation (principal); Z79.01 Long term (current) use of anticoagulants
CPT/HCPCS: 36415; 85610

== ENCOUNTER 2021-10-18 08:12 | Outpatient (RCR) | payer MEDICARE, OTHER, SELFPAY ==
[2021-09-18 09:02] VITALS: BMI 34.7
[2021-09-19 09:54] LABS: International Normalized Ratio 2.7; Prothrombin Time (Protime)PT. 28.2 SECONDS (11.7-14.9)
[2021-10-18 10:34] LABS: International Normalized Ratio 3.3; Prothrombin Time (Protime)PT. 32.5 SECONDS (11.7-14.9)
== END 2021-10-18 18:00 | disposition home or self-care (01) ==
LOC: LAB 08:12
PROVIDERS: PCP Internal Medicine; Referring Provider Internal Medicine Cardiovascular Disease; Visit Provider Internal Medicine Cardiovascular Disease
DX: I48.19 Other persistent atrial fibrillation (principal); Z79.01 Long term (current) use of anticoagulants
CPT/HCPCS: 36415; 85610

== ENCOUNTER 2021-11-15 09:21 | Outpatient (RCR) | payer MEDICARE, OTHER, SELFPAY ==
[2021-10-19 00:53] VITALS: BMI 34.7
[2021-10-25 09:45] LABS: Prothrombin Time (Protime)PT. 30.3 SECONDS (11.7-14.9)
[2021-11-15 10:19] LABS: Prothrombin Time (Protime)PT. 30.7 SECONDS (11.7-14.9)
== END 2021-11-15 18:00 | disposition home or self-care (01) ==
LOC: LAB 09:21
PROVIDERS: PCP Internal Medicine; Referring Provider Internal Medicine Cardiovascular Disease; Visit Provider Internal Medicine Cardiovascular Disease
DX: I48.19 Other persistent atrial fibrillation (principal); Z79.01 Long term (current) use of anticoagulants
CPT/HCPCS: 36415; 85610

== ENCOUNTER 2021-12-13 08:49 | Outpatient (RCR) | payer MEDICARE, OTHER, SELFPAY ==
[2021-11-18 02:37] VITALS: BMI 34.7
[2021-12-13 10:03] LABS: International Normalized Ratio 2.5; Prothrombin Time (Protime)PT. 26.7 SECONDS (11.7-14.9)
== END 2021-12-13 18:00 | disposition home or self-care (01) ==
LOC: LAB 08:49
PROVIDERS: PCP Internal Medicine; Referring Provider Internal Medicine Cardiovascular Disease; Visit Provider Internal Medicine Cardiovascular Disease
DX: I48.19 Other persistent atrial fibrillation (principal); Z79.01 Long term (current) use of anticoagulants
CPT/HCPCS: 36415; 85610

== ENCOUNTER 2022-01-10 08:38 | Outpatient (RCR) | payer MEDICARE, OTHER, SELFPAY ==
[2021-12-18 20:12] VITALS: BMI 34.7
[2022-01-10 09:19] LABS: International Normalized Ratio 2.5; Prothrombin Time (Protime)PT. 26.3 SECONDS (11.7-14.9)
== END 2022-01-10 23:59 | disposition home or self-care (01) ==
LOC: LAB 08:38
PROVIDERS: PCP Internal Medicine; Referring Provider Internal Medicine Cardiovascular Disease; Visit Provider Internal Medicine Cardiovascular Disease
DX: I48.19 Other persistent atrial fibrillation (principal); Z79.01 Long term (current) use of anticoagulants
CPT/HCPCS: 36415; 85610

== ENCOUNTER 2022-03-08 08:13 | Outpatient (RCR) | payer MEDICARE, OTHER, SELFPAY ==
[2022-01-18 06:38] VITALS: BMI 34.7
[2022-03-08 09:01] LABS: Prothrombin Time (Protime)PT. 30.6 SECONDS (11.7-14.9)
== END 2022-03-08 18:00 | disposition home or self-care (01) ==
LOC: LAB 08:13
PROVIDERS: PCP Internal Medicine; Referring Provider Internal Medicine Cardiovascular Disease; Visit Provider Internal Medicine Cardiovascular Disease
DX: I48.0 Paroxysmal atrial fibrillation (principal); Z79.01 Long term (current) use of anticoagulants
CPT/HCPCS: 36415; 85610

== ENCOUNTER 2022-04-03 09:46 | Outpatient (RCR) | payer MEDICARE, OTHER, SELFPAY ==
[2022-03-20 22:20] VITALS: BMI 34.7
[2022-04-03 10:17] LABS: International Normalized Ratio 2.9; Prothrombin Time (Protime)PT. 30.3 SECONDS (11.7-14.9)
== END 2022-04-03 18:00 | disposition home or self-care (01) ==
LOC: LAB 09:46
PROVIDERS: PCP Internal Medicine; Referring Provider Internal Medicine Cardiovascular Disease; Visit Provider Internal Medicine Cardiovascular Disease
DX: I48.0 Paroxysmal atrial fibrillation (principal); Z79.01 Long term (current) use of anticoagulants
CPT/HCPCS: 36415; 85610

== ENCOUNTER 2022-05-03 08:19 | Outpatient (RCR) | payer MEDICARE, OTHER, SELFPAY ==
[2022-04-19 19:36] VITALS: BMI 34.7
[2022-05-03 09:10] LABS: International Normalized Ratio 3.3; Prothrombin Time (Protime)PT. 33.1 SECONDS (11.7-14.9)
== END 2022-05-03 18:00 | disposition home or self-care (01) ==
LOC: LAB 08:19
PROVIDERS: PCP Internal Medicine; Referring Provider Internal Medicine Cardiovascular Disease; Visit Provider Internal Medicine Cardiovascular Disease
DX: I48.0 Paroxysmal atrial fibrillation (principal); Z79.01 Long term (current) use of anticoagulants
CPT/HCPCS: 36415; 85610

== ENCOUNTER 2022-06-05 07:53 | Outpatient (RCR) | payer MEDICARE, OTHER, SELFPAY ==
[2022-05-21 09:56] VITALS: BMI 34.7
[2022-06-05 08:56] LABS: International Normalized Ratio 2.1; Prothrombin Time (Protime)PT. 23.6 SECONDS (11.7-14.9)
== END 2022-06-19 18:00 | disposition home or self-care (01) ==
LOC: LAB 07:53
PROVIDERS: PCP Internal Medicine; Referring Provider Internal Medicine Cardiovascular Disease; Visit Provider Internal Medicine Cardiovascular Disease
DX: I48.0 Paroxysmal atrial fibrillation (principal); Z79.01 Long term (current) use of anticoagulants
CPT/HCPCS: 36415; 85610

== ENCOUNTER 2022-06-27 08:39 | Outpatient (RCR) | payer MEDICARE, OTHER, SELFPAY ==
[2022-06-19 22:38] VITALS: BMI 34.7
[2022-06-27 09:46] LABS: Prothrombin Time (Protime)PT. 22.6 SECONDS (11.7-14.9)
== END 2022-06-27 18:00 | disposition home or self-care (01) ==
LOC: LAB 08:39
PROVIDERS: PCP Internal Medicine; Referring Provider Internal Medicine Cardiovascular Disease; Visit Provider Internal Medicine Cardiovascular Disease
DX: I48.0 Paroxysmal atrial fibrillation (principal); Z79.01 Long term (current) use of anticoagulants
CPT/HCPCS: 36415; 85610

== ENCOUNTER 2022-08-12 07:44 | Outpatient (RCR) | payer MEDICARE, OTHER, SELFPAY ==
[2022-07-20 22:45] VITALS: BMI 34.7
[2022-07-26 10:11] LABS: International Normalized Ratio 1.9; Prothrombin Time (Protime)PT. 21.1 SECONDS (11.7-14.9)
[2022-08-12 08:41] LABS: International Normalized Ratio 2.9; Prothrombin Time (Protime)PT. 29.6 SECONDS (11.7-14.9)
== END 2022-08-12 09:00 | disposition home or self-care (01) ==
LOC: LAB 07:44
PROVIDERS: PCP Internal Medicine; Referring Provider Internal Medicine Cardiovascular Disease; Visit Provider Internal Medicine Cardiovascular Disease
DX: I48.0 Paroxysmal atrial fibrillation (principal); Z79.01 Long term (current) use of anticoagulants
CPT/HCPCS: 36415; 85610

== ENCOUNTER → 2022-09-03 | Outpatient (CLI) | payer MEDICARE, OTHER, SELFPAY ==
--- NOTE | 2022-09-03 09:39 | CDU_ITS ---
Reason For Study: Bilateral carotid artery stenosis Rt. Velocities/BP Lt. Velocities/BP Prox CCA 65.5/17.3 cm/sec. Prox CCA 75.1/22.3 cm/sec. Mid CCA 63.6/14.5 cm/sec. Mid CCA 65.2/15.7 cm/sec. Dist CCA 64.5/16.3 cm/sec. Dist CCA 63/15.7 cm/sec. Prox ICA 30.8/9.5 cm/sec. Prox ICA 59.7/13.5 cm/sec. Mid ICA 45.8/15.9 cm/sec. Mid ICA 42.1/15.7 cm/sec. Dist ICA 54.3/23.7 cm/sec. Dist ICA 54.2/17.9 cm/sec. Rt. ICA/CCA = 0.84. Lt. ICA/CCA = 0.92. Prox ECA 63.6/8.8 cm/sec. Prox ECA 63/14.6 cm/sec. Rt. Vert. 23.3/7.7 cm/sec. Lt. Vert. 30.1/10.9 cm/sec. Right Extracranial There is intimal thickening but no significant atherosclerotic plaque noted in the right common carotid artery. There is homogeneous, smooth atherosclerotic plaque noted in the right internal carotid artery. There is homogeneous, smooth atherosclerotic plaque noted in the right external carotid artery. Antegrade flow is noted in the right vertebral artery. There is heterogeneous, irregular atherosclerotic plaque noted in the right bulb. Left Extracranial There is intimal thickening but no significant atherosclerotic plaque noted in the left common carotid artery. There is heterogeneous, irregular atherosclerotic plaque noted in the left internal carotid artery. There is heterogeneous, irregular atherosclerotic plaque noted in the left external carotid artery. Antegrade flow is noted in the left vertebral artery. Procedure Carotid Duplex [id number]. This is a Carotid Duplex examination using B-mode, color flow and specral Doppler. Exam performed in department. VL/Carotid Duplex Ultrasound Interpretation Summary Minimal smooth plaque at the proximal right internal carotid artery with less t cramer 50% stenosis Less than 50% stenosis right external carotid artery Irregular plaque at the proximal left internal carotid artery with less than 50 % stenosis Less than 50% stenosis left external carotid artery Patent and antegrade vertebral arteries bilaterally No change from the previous examination of May 24, 2021 Ordering Physician: Gertrudis Flowers Referring Physician: Gertrudis Flowers Performed By: Dulce Brambila RVT
== END | disposition home or self-care (01) ==
LOC: CVS 09:38
PROVIDERS: PCP Internal Medicine; Referring Provider Internal Medicine; Visit Provider Internal Medicine
DX: I65.23 Occlusion and stenosis of bilateral carotid arteries (principal)
CPT/HCPCS: 93880

== ENCOUNTER 2022-09-09 08:17 | Outpatient (CLI) | payer MEDICARE, OTHER, SELFPAY ==
--- NOTE | 2022-09-09 08:19 | US_ITS ---
INDICATION: fatty liver -- do with elastography EXAMINATION: Ultrasound US Abdomen Limited (quadrant) TECHNIQUE: Valera scale and color doppler imaging was performed of the right upper quadrant. COMPARISON: None. FINDINGS: LIVER: 14.2 cm. Slight increased echogenicity with obscuration of portal triads. No focal hepatic lesion. Anechoic perihepatic fluid along the posterior left hepatic lobe, at least partially due to oblique view of cardiovascular structures.. GALLBLADDER AND BILIARY TREE: No shadowing gallstone, pericholecystic fluid or gallbladder wall thickening is demonstrated. The proximal common bile duct measures 5 mm, which is within normal limits for the patient''s age. Songraphic Mittal''s sign: None PANCREAS: No focal abnormality is demonstrated in the pancreas. No pancreatic ductal dilatation. RIGHT KIDNEY: 10.4 cm in length without hydronephrosis. No shadowing nephrolithiasis. Normal cortical echogenicity. US/Abdomen Limited IMPRESSION: Mildly increased hepatic echogenicity as can be seen with steatosis. Anechoic fluid adjacent to left hepatic lobe likely representing oblique view of cardiovascular structures with surrounding perihepatic ascites not excluded. Electronically Signed: Dewayne Robbins MD at 6:37 EST ,
--- NOTE | 2022-09-09 08:19 | US_ITS ---
STUDY: ABDOMINAL ULTRASOUND - ELASTOGRAPHY REASON FOR VISIT: Male, 72 years old. Fatty infiltration of liver. TECHNIQUE: Liver stiffness measurements were obtained on a [employer] RS 85 ultrasound machine using a CA 1-7 probe following the SRU guidelines. 3 measurements were obtained using a 2-D-SWE method. TheIQR/M was 12% suggesting a quality data set. TECHNICAL QUALITY: Adequate. COMPARISON: Comparison is made with prior study dated 09/09/2022. FINDINGS: Liver: There is evidence of fatty infiltration of the liver. Median liver stiffness measured 6.5 kPa. US/Elastography Parenchyma/Organ IMPRESSION: Liver stiffness measures 6.5 kPa compatible with F2-F3 (Mild to moderate liver fibrosis) Metavir score. Electronically Signed: Artie Gray MD at 8:25 EST ,
== END 2022-09-09 23:59 | disposition home or self-care (01) ==
PROVIDERS: PCP Internal Medicine; Visit Provider Internal Medicine
DX: K76.0 Fatty (change of) liver, not elsewhere classified (principal); I48.0 Paroxysmal atrial fibrillation; Z79.01 Long term (current) use of anticoagulants
CPT/HCPCS: 36415; 76705; 76981; 85610

== ENCOUNTER 2022-09-09 09:17 | Outpatient (RCR) | payer MEDICARE, OTHER, SELFPAY ==
[2022-08-21 07:46] VITALS: BMI 34.7
[2022-09-09 10:38] LABS: International Normalized Ratio 2.4; Prothrombin Time (Protime)PT. 25.8 SECONDS (11.7-14.9)
== END 2022-09-09 18:00 | disposition home or self-care (01) ==
LOC: LAB 09:17
PROVIDERS: PCP Internal Medicine; Referring Provider Internal Medicine Cardiovascular Disease; Visit Provider Internal Medicine Cardiovascular Disease
DX: I48.0 Paroxysmal atrial fibrillation (principal); Z79.01 Long term (current) use of anticoagulants
CPT/HCPCS: 36415; 85610

== ENCOUNTER 2022-10-15 07:30 | Outpatient (RCR) | payer MEDICARE, OTHER, SELFPAY ==
[2022-09-17 19:46] VITALS: BMI 34.7
[2022-10-01 09:49] LABS: International Normalized Ratio 1.9; Prothrombin Time (Protime)PT. 21.5 SECONDS (11.7-14.9)
[2022-10-15 08:24] LABS: International Normalized Ratio 1.7; Prothrombin Time (Protime)PT. 19.8 SECONDS (11.7-14.9)
== END 2022-10-18 21:22 | disposition home or self-care (01) ==
LOC: LAB 07:30
PROVIDERS: PCP Internal Medicine; Referring Provider Internal Medicine Cardiovascular Disease; Visit Provider Internal Medicine Cardiovascular Disease
DX: I48.0 Paroxysmal atrial fibrillation (principal); Z79.01 Long term (current) use of anticoagulants
CPT/HCPCS: 36415; 85610

== ENCOUNTER 2022-10-29 07:54 | Outpatient (RCR) | payer MEDICARE, OTHER, SELFPAY ==
[2022-10-18 21:22] VITALS: BMI 34.7
[2022-10-29 09:04] LABS: International Normalized Ratio 2.4; Prothrombin Time (Protime)PT. 26.1 SECONDS (11.7-14.9)
== END 2022-11-17 00:26 | disposition home or self-care (01) ==
LOC: LAB 07:54
PROVIDERS: PCP Internal Medicine; Referring Provider Internal Medicine Cardiovascular Disease; Visit Provider Internal Medicine Cardiovascular Disease
DX: I48.0 Paroxysmal atrial fibrillation (principal); Z79.01 Long term (current) use of anticoagulants
CPT/HCPCS: 36415; 85610

== ENCOUNTER 2022-11-26 09:17 | Outpatient (RCR) | payer MEDICARE, OTHER, SELFPAY ==
[2022-11-17 00:26] VITALS: BMI 34.7
[2022-11-26 09:51] LABS: International Normalized Ratio 2.2; Prothrombin Time (Protime)PT. 24.9 SECONDS (11.7-14.9)
== END 2022-11-26 11:00 | disposition home or self-care (01) ==
LOC: LAB 09:17
PROVIDERS: PCP Internal Medicine; Referring Provider Internal Medicine Cardiovascular Disease; Visit Provider Internal Medicine Cardiovascular Disease
DX: I48.0 Paroxysmal atrial fibrillation (principal); Z79.01 Long term (current) use of anticoagulants
CPT/HCPCS: 36415; 85610

== ENCOUNTER 2022-12-24 08:04 | Outpatient (RCR) | payer MEDICARE, OTHER, SELFPAY ==
[2022-12-19 08:05] VITALS: BMI 34.7
[2022-12-24 08:47] LABS: International Normalized Ratio 2.9; Prothrombin Time (Protime)PT. 30.4 SECONDS (11.7-14.9)
== END 2022-12-24 18:00 | disposition home or self-care (01) ==
LOC: LAB 08:04
PROVIDERS: PCP Internal Medicine; Referring Provider Internal Medicine Cardiovascular Disease; Visit Provider Internal Medicine Cardiovascular Disease
DX: I48.0 Paroxysmal atrial fibrillation (principal); Z79.01 Long term (current) use of anticoagulants
CPT/HCPCS: 36415; 85610

== ENCOUNTER 2023-01-22 07:42 | Outpatient (RCR) | payer MEDICARE, OTHER, SELFPAY ==
[2023-01-17 21:02] VITALS: BMI 34.7
[2023-01-22 08:19] LABS: International Normalized Ratio 2.2; Prothrombin Time (Protime)PT. 24.4 SECONDS (11.7-14.9)
== END 2023-02-17 23:34 | disposition home or self-care (01) ==
LOC: LAB 07:42
PROVIDERS: PCP Internal Medicine; Referring Provider Internal Medicine Cardiovascular Disease; Visit Provider Internal Medicine Cardiovascular Disease
DX: I48.0 Paroxysmal atrial fibrillation (principal); Z79.01 Long term (current) use of anticoagulants
CPT/HCPCS: 36415; 85610

== ENCOUNTER 2023-02-24 08:14 | Outpatient (RCR) | payer MEDICARE, OTHER, SELFPAY ==
[2023-02-17 23:34] VITALS: BMI 34.7
[2023-02-24 08:46] LABS: International Normalized Ratio 2.9; Prothrombin Time (Protime)PT. 30.4 SECONDS (11.7-14.9)
== END 2023-02-24 18:00 | disposition home or self-care (01) ==
LOC: LAB 08:14
PROVIDERS: PCP Internal Medicine; Referring Provider Internal Medicine Cardiovascular Disease; Visit Provider Internal Medicine Cardiovascular Disease
DX: I48.0 Paroxysmal atrial fibrillation (principal); Z79.01 Long term (current) use of anticoagulants
CPT/HCPCS: 36415; 85610

== ENCOUNTER 2023-04-15 08:06 | Outpatient (RCR) | payer MEDICARE, OTHER, SELFPAY ==
[2023-03-20 21:45] VITALS: BMI 34.7
[2023-04-15 09:09] LABS: International Normalized Ratio 2.6; Prothrombin Time (Protime)PT. 28.4 SECONDS (11.7-14.9)
== END 2023-04-15 18:00 | disposition home or self-care (01) ==
LOC: LAB 08:06
PROVIDERS: PCP Internal Medicine; Referring Provider Internal Medicine Cardiovascular Disease; Visit Provider Internal Medicine Cardiovascular Disease
DX: Z79.01 Long term (current) use of anticoagulants; I48.19 Other persistent atrial fibrillation
CPT/HCPCS: 36415; 85610

== ENCOUNTER 2023-05-06 08:34 | Outpatient (RCR) | payer MEDICARE, OTHER, SELFPAY ==
[2023-04-20 00:16] VITALS: BMI 34.7
[2023-05-06 10:01] LABS: International Normalized Ratio 2.5; Prothrombin Time (Protime)PT. 27.5 SECONDS (11.7-14.9)
== END 2023-05-06 18:00 | disposition home or self-care (01) ==
LOC: LAB 08:34
PROVIDERS: PCP Internal Medicine; Referring Provider Internal Medicine Cardiovascular Disease; Visit Provider Internal Medicine Cardiovascular Disease
DX: Z79.01 Long term (current) use of anticoagulants; I48.19 Other persistent atrial fibrillation
CPT/HCPCS: 36415; 85610

== ENCOUNTER 2023-06-10 08:40 | Outpatient (RCR) | payer MEDICARE, OTHER, SELFPAY ==
[2023-05-20 22:40] VITALS: BMI 34.7
[2023-06-10 09:27] LABS: International Normalized Ratio 2.4; Prothrombin Time (Protime)PT. 26.7 SECONDS (11.7-14.9)
== END 2023-06-19 18:00 | disposition home or self-care (01) ==
LOC: LAB 08:40
PROVIDERS: PCP Internal Medicine; Referring Provider Internal Medicine Cardiovascular Disease; Visit Provider Internal Medicine Cardiovascular Disease
DX: Z79.01 Long term (current) use of anticoagulants; I48.19 Other persistent atrial fibrillation
CPT/HCPCS: 36415; 85610

== ENCOUNTER 2023-07-15 07:26 | Outpatient (RCR) | payer MEDICARE, OTHER, SELFPAY ==
[2023-06-20 02:56] VITALS: BMI 34.7
[2023-07-15 08:39] LABS: International Normalized Ratio 2.7; Prothrombin Time (Protime)PT. 28.6 SECONDS (11.7-14.9)
== END 2023-07-20 18:00 | disposition home or self-care (01) ==
LOC: LAB 07:26
PROVIDERS: PCP Internal Medicine; Referring Provider Internal Medicine Cardiovascular Disease; Visit Provider Internal Medicine Cardiovascular Disease
DX: Z79.01 Long term (current) use of anticoagulants; I48.19 Other persistent atrial fibrillation
CPT/HCPCS: 36415; 85610

== ENCOUNTER 2023-08-06 08:53 | Outpatient (RCR) | payer MEDICARE, OTHER, SELFPAY ==
[2023-07-20 20:46] VITALS: BMI 34.7
[2023-08-06 10:49] LABS: International Normalized Ratio 2.5; Prothrombin Time (Protime)PT. 27.7 SECONDS (11.7-14.9)
== END 2023-08-06 18:00 | disposition home or self-care (01) ==
LOC: LAB 08:53
PROVIDERS: PCP Internal Medicine; Referring Provider Internal Medicine Cardiovascular Disease; Visit Provider Internal Medicine Cardiovascular Disease
DX: Z79.01 Long term (current) use of anticoagulants; I48.19 Other persistent atrial fibrillation
CPT/HCPCS: 36415; 85610

== ENCOUNTER 2023-09-02 09:33 | Outpatient (RCR) | payer MEDICARE, OTHER, SELFPAY ==
[2023-08-20 21:32] VITALS: BMI 34.7
[2023-09-02 10:35] LABS: International Normalized Ratio 2.6; Prothrombin Time (Protime)PT. 27.9 SECONDS (11.7-14.9)
== END 2023-09-18 18:00 | disposition home or self-care (01) ==
LOC: LAB 09:33
PROVIDERS: PCP Internal Medicine; Referring Provider Internal Medicine Cardiovascular Disease; Visit Provider Internal Medicine Cardiovascular Disease
DX: I48.0 Paroxysmal atrial fibrillation (principal); Z79.01 Long term (current) use of anticoagulants
CPT/HCPCS: 36415; 85610

== ENCOUNTER 2023-10-10 07:59 | Outpatient (RCR) | payer MEDICARE, OTHER, SELFPAY ==
[2023-09-18 21:57] VITALS: BMI 34.7
[2023-10-03 10:39] LABS: International Normalized Ratio 3.8; Prothrombin Time (Protime)PT. 36.8 SECONDS (11.7-14.9)
[2023-10-10 09:35] LABS: Prothrombin Time (Protime)PT. 30.9 SECONDS (11.7-14.9)
== END 2023-10-18 18:00 | disposition home or self-care (01) ==
LOC: LAB 07:59
PROVIDERS: PCP Internal Medicine; Referring Provider Internal Medicine Cardiovascular Disease; Visit Provider Internal Medicine Cardiovascular Disease
DX: I48.0 Paroxysmal atrial fibrillation (principal); Z79.01 Long term (current) use of anticoagulants
CPT/HCPCS: 36415; 85610

== ENCOUNTER → 2023-10-14 | Outpatient (CLI) | payer MEDICARE, OTHER, SELFPAY ==
--- NOTE | 2023-10-14 09:22 | US_ITS ---
STUDY: ABDOMINAL ULTRASOUND - RIGHT UPPER QUADRANT REASON FOR VISIT: Male, 73 years old fatty liver TECHNIQUE: Ultrasound evaluation of the right upper quadrant was performed with real-time and static hodges-scale imaging. TECHNICAL QUALITY: Adequate. COMPARISON: Comparison is made with prior study dated September 09, 2022. FINDINGS: Liver: The liver measures 15.1 cm. There is increased echogenicity consistent with fatty infiltration. The bile ducts are within normal limits. There is hepatic color flow. The direction of portal flow is hepatopetal. There is no demonstrated mass lesion. Gallbladder: Normal distended gallbladder. The gallbladder wall measures 2.1 mm. There is a negative sonographic Mittal''s sign. There is no pericholecystic fluid. There are no gallstones. Common Bile Duct (C.B.D.): The common bile duct measures 4.0 mm. Pancreas: Normal size of the head, body and tail of the pancreas. There is normal echogenicity of the pancreas. There is no demonstrated pancreatic mass or cyst. Right Kidney: Normal size of the right kidney. The right kidney measures 9.7 cm x 5 cm x 6.2 cm. Normal renal cortex. The right cortex measures 1.0 cm. There is no demonstrated renal mass or cyst. There is no right hydronephrosis. US/Abdomen Limited IMPRESSION: Fatty infiltration of the liver. Electronically Signed: Artie Gray MD at 10:47 EDT ,
--- NOTE | 2023-10-14 09:22 | CDU_ITS ---
Reason For Study: STENOSIS Rt. Velocities/BP Lt. Velocities/BP Prox CCA 74.9/16.3 cm/sec. Prox CCA 79.4/28.5 cm/sec. Mid CCA 71.1/24.8 cm/sec. Mid CCA 71.9/16.0 cm/sec. Dist CCA 70.2/16.3 cm/sec. Dist CCA 60.8/22.2 cm/sec. Prox ICA 35.7/13.0 cm/sec. Prox ICA 46.1/17.5 cm/sec. Mid ICA 56.6/17.4 cm/sec. Mid ICA 62.0/24.7 cm/sec. Dist ICA 54.9/24.3 cm/sec. Dist ICA 50.0/19.9 cm/sec. Rt. ICA/CCA = 56.6/71.1=0.8. Lt. ICA/CCA = 62.0/71.9=0.9. Prox ECA 73.3/18.5 cm/sec. Prox ECA 37.3/7.6 cm/sec. Rt. Vert. 26.3/9.9 cm/sec. Lt. Vert. 20.1/11.5 cm/sec. Right Extracranial There is homogeneous, smooth atherosclerotic plaque noted in the right common carotid artery. There is heterogeneous, smooth atherosclerotic plaque noted in the right internal carotid artery. There is homogeneous, smooth atherosclerotic plaque noted in the right external carotid artery. Antegrade flow is noted in the right vertebral artery. Left Extracranial There is intimal thickening but no significant atherosclerotic plaque noted in the left common carotid artery. There is heterogeneous, irregular atherosclerotic plaque noted in the left internal carotid artery. There is heterogeneous, smooth atherosclerotic plaque noted in the left external carotid artery. Antegrade flow is noted in the left vertebral artery. Procedure Carotid Duplex 14008. This is a Carotid Duplex examination using B-mode, color flow and specral Doppler. Exam performed in department. VL/Carotid Duplex Ultrasound Interpretation Summary Mild (<50%) stenosis right extracranial internal carotid. Mild (<50%) stenosis left extracranial internal carotid. Patent and antegrade vertebrals bilaterally. Ordering Physician: Gertrudis Flowers Referring Physician: Gertrudis Flowers Performed By: Belinda Hoover, PA, RVT
== END | disposition home or self-care (01) ==
PROVIDERS: PCP Internal Medicine; Referring Provider Internal Medicine; Visit Provider Internal Medicine
DX: I65.23 Occlusion and stenosis of bilateral carotid arteries (principal); K76.0 Fatty (change of) liver, not elsewhere classified
CPT/HCPCS: 76705; 93880

== ENCOUNTER 2023-10-31 08:17 | Outpatient (RCR) | payer MEDICARE, OTHER, SELFPAY ==
[2023-10-18 21:24] VITALS: BMI 34.7
[2023-10-31 09:58] LABS: International Normalized Ratio 2.5; Prothrombin Time (Protime)PT. 26.9 SECONDS (11.7-14.9)
== END 2023-11-18 22:31 | disposition home or self-care (01) ==
LOC: LAB 08:17
PROVIDERS: PCP Internal Medicine; Referring Provider Internal Medicine Cardiovascular Disease; Visit Provider Internal Medicine Cardiovascular Disease
DX: Z79.01 Long term (current) use of anticoagulants; I48.19 Other persistent atrial fibrillation
CPT/HCPCS: 36415; 85610

== ENCOUNTER 2023-11-28 08:28 | Outpatient (RCR) | payer MEDICARE, OTHER, SELFPAY ==
[2023-11-18 22:31] VITALS: BMI 34.7
[2023-11-28 10:06] LABS: International Normalized Ratio 2.5
== END 2023-11-28 18:00 | disposition home or self-care (01) ==
LOC: LAB 08:28
PROVIDERS: PCP Internal Medicine; Referring Provider Internal Medicine Cardiovascular Disease; Visit Provider Internal Medicine Cardiovascular Disease
DX: Z79.01 Long term (current) use of anticoagulants; I48.19 Other persistent atrial fibrillation
CPT/HCPCS: 36415; 85610

== ENCOUNTER 2024-01-05 09:57 | Outpatient (RCR) | payer MEDICARE, OTHER, SELFPAY ==
[2023-12-22 08:41] VITALS: BMI 34.7
[2024-01-05 11:16] LABS: Absolute Lymphocyte Count 1.48 X10^3/uL (0.83-4.51); Absolute Neutrophil Count 4.4 X10^3/uL (2.0-7.7); Basophil# 0.04 X10^3/uL; Basophil% 0.6 % (0-1); Eosinophil# 0.25 X10^3/uL; Eosinophils% 3.7 % (0-5); Hematocrit 46.9 % (40-54); Hemoglobin 15.7 g/dL (13.0-16.5); Lymphocyte # 1.48 X10^3/ul (0.83-4.51); Lymphocyte % 21.9 % (19-41); Mean Corp Hgb Conc 33.5 g/dL (32-36); Mean Corpuscular Hgb 30.7 pg (27.0-32.0); Mean Corpuscular Volume 91.8 fL (80-94); Mean Platelet Vol. 11.1 fl (6.2-12.0); Monocyte% 8.9 % (0-10); NRBC Flagged by Analyzer 0 % (0-5); Neutrophil # 4.38 X10^3/uL (2.7-7.7); Neutrophil % 64.6 % (47-70); Platelet Count 218 K/mm3 (150-450); RBC Distribution Width CV 13.2 % (11.6-14.6); RBC Distribution Width SD 44.2 fl (35.1-43.9); Red Blood Count 5.11 M/mm3 (4.6-6.2); White Blood Count 6.8 K/mm3 (4.4-11.0)
[2024-01-05 11:34] LABS: International Normalized Ratio 2.2; Prothrombin Time (Protime)PT. 24.2 SECONDS (11.7-14.9)
[2024-01-05 12:06] LABS: Microalbumin,Random Urine 97.8 mg/L (NO RANGE EST.); Microalbumin:Creatinine Ratio 62.7 mg/g CRE (<30 mg/g CRE)
[2024-01-05 12:20] LABS: AST(SGOT) 41 U/L (15-37); Alanine Aminotransfer ALT/SGPT 73 U/L (16-61); Albumin, Serum 3.7 g/dL (3.2-5.0); Alkaline Phosphatase 83 U/L (45-117); Anion Gap 8 (5-15); BUN 20 mg/dL (7-18); BUN/Creat Ratio 16.5 RATIO (10-20); Calcium,Total 9.3 mg/dL (8.5-10.1); Chloride 109 mmol/L (98-107); Cholesterol 111 mg/dL (200); Creatinine, Serum 1.21 mg/dL (0.70-1.30); EST Glomerular Filtration Rate 63 mL/min (>60); Est Glom Filt Rate - Afr Amer 76 mL/min (>60); Globulin 3.8 g/dL (2.2-4.2); Glucose 112 mg/dL (74-106); High Density Lipoprotein 35 mg/dL; Potassium 4.2 mmol/L (3.5-5.1); Protein, Total 7.5 g/dL (6.4-8.2); Sodium Level 139 mmol/L (136-145); Triglycerides 91 mg/dL; Very Low Density Lipoprotein 18 mg/dL (5-40)
== END 2024-01-05 18:00 | disposition home or self-care (01) ==
LOC: LAB 09:57
PROVIDERS: PCP Internal Medicine; Referring Provider Internal Medicine Cardiovascular Disease; Visit Provider Internal Medicine Cardiovascular Disease
DX: Z79.01 Long term (current) use of anticoagulants; N28.9 Disorder of kidney and ureter, unspecified; E11.21 Type 2 diabetes mellitus with diabetic nephropathy; E78.00 Pure hypercholesterolemia, unspecified; I48.19 Other persistent atrial fibrillation
CPT/HCPCS: 36415; 80053; 80061; 82043; 82570; 85025; 85610

== ENCOUNTER → 2024-01-09 | Outpatient (CLI) | payer MEDICARE, OTHER, SELFPAY ==
--- NOTE | 2024-01-09 07:27 | MRI_ITS ---
STUDY: MRI UPPER EXTREMITY LEFT FOREARM WITH AND WITHOUT CONTRAST REASON FOR EXAM: Male, 73 years old. Mass of left forearm, near elbow, marked with beads. TECHNIQUE: Standardized fat and water weighted pulse sequences were obtained in all 3 orthogonal planes, pre-and post contrast administration. IV 20 cc Clariscan was administered for the contrast portion of the examination. COMPARISON: None. FINDINGS: Skin markers were placed along the posterior aspect of the proximal forearm at the site of clinical concern. At the site of the markers, there is skin thickening with underlying ill-defined intermediate T1/increased STIR signal in the subcutaneous fat, with mild diffuse enhancement following IV contrast administration (axial postcontrast T1 series 8 images 12-16). There is no discrete soft tissue mass. There is no solid, cystic or lipomatous mass lesion. Normal flexor and extensor muscles and tendons of the forearm and wrist. Normal interosseous membrane. Normal radius and ulna, without a periosteal, cortical, or cancellous marrow abnormality. MRI/Upper Ext No Joint W/WO Cont IMPRESSION: Nonspecific skin thickening with underlying ill-defined intermediate T1/increased STIR signal in the subcutaneous fat along the posterior aspect of the proximal forearm, with mild diffuse enhancement following IV contrast administration. Overall imaging findings suggestive of cellulitis. No discrete soft tissue mass. Electronically Signed: Bautista Montez MD at 11:12 EDT ,
== END | disposition home or self-care (01) ==
LOC: MRI 07:16
PROVIDERS: PCP Internal Medicine; Referring Provider Internal Medicine; Visit Provider Internal Medicine
DX: R22.32 Localized swelling, mass and lump, left upper limb (principal)
CPT/HCPCS: 73220; A9575; A4216

== ENCOUNTER 2024-02-02 08:11 | Outpatient (RCR) | payer MEDICARE, OTHER, SELFPAY ==
[2024-01-18 22:13] VITALS: BMI 34.7
[2024-02-02 10:29] LABS: International Normalized Ratio 2.7; Prothrombin Time (Protime)PT. 28.6 SECONDS (11.7-14.9)
== END 2024-02-18 18:00 | disposition home or self-care (01) ==
LOC: LAB 08:11
PROVIDERS: PCP Internal Medicine; Referring Provider Internal Medicine Cardiovascular Disease; Visit Provider Internal Medicine Cardiovascular Disease
DX: Z79.01 Long term (current) use of anticoagulants; I48.19 Other persistent atrial fibrillation
CPT/HCPCS: 36415; 85610

== ENCOUNTER 2024-03-01 08:12 | Outpatient (RCR) | payer MEDICARE, OTHER, SELFPAY ==
[2024-02-18 20:10] VITALS: BMI 34.7
[2024-03-01 09:31] LABS: International Normalized Ratio 2.3; Prothrombin Time (Protime)PT. 25.3 SECONDS (11.7-14.9)
== END 2024-03-01 18:00 | disposition home or self-care (01) ==
LOC: LAB 08:12
PROVIDERS: PCP Internal Medicine; Referring Provider Internal Medicine Cardiovascular Disease; Visit Provider Internal Medicine Cardiovascular Disease
DX: Z79.01 Long term (current) use of anticoagulants; I48.19 Other persistent atrial fibrillation
CPT/HCPCS: 36415; 85610

== ENCOUNTER 2024-04-05 07:57 | Outpatient (RCR) | payer MEDICARE, OTHER, SELFPAY ==
[2024-03-21 01:56] VITALS: BMI 34.7
[2024-03-29 08:53] LABS: International Normalized Ratio 3.3; Prothrombin Time (Protime)PT. 33.2 SECONDS (11.7-14.9)
[2024-04-05 08:58] LABS: International Normalized Ratio 2.7; Prothrombin Time (Protime)PT. 28.1 SECONDS (11.7-14.9)
== END 2024-04-05 18:00 | disposition home or self-care (01) ==
LOC: LAB 07:57
PROVIDERS: PCP Internal Medicine; Referring Provider Internal Medicine Cardiovascular Disease; Visit Provider Internal Medicine Cardiovascular Disease
DX: Z79.01 Long term (current) use of anticoagulants; I48.19 Other persistent atrial fibrillation
CPT/HCPCS: 36415; 85610

== ENCOUNTER 2024-04-26 08:18 | Outpatient (RCR) | payer MEDICARE, OTHER, SELFPAY ==
[2024-04-19 22:50] VITALS: BMI 34.7
[2024-04-26 09:52] LABS: International Normalized Ratio 3.1; Prothrombin Time (Protime)PT. 31.7 SECONDS (11.7-14.9)
== END 2024-04-26 18:00 | disposition home or self-care (01) ==
LOC: LAB 08:18
PROVIDERS: PCP Internal Medicine; Referring Provider Internal Medicine Cardiovascular Disease; Visit Provider Internal Medicine Cardiovascular Disease
DX: Z79.01 Long term (current) use of anticoagulants; I48.19 Other persistent atrial fibrillation
CPT/HCPCS: 36415; 85610

== ENCOUNTER 2024-05-24 08:11 | Outpatient (RCR) | payer MEDICARE, OTHER, SELFPAY ==
[2024-05-20 20:45] VITALS: BMI 34.7
[2024-05-24 08:58] LABS: International Normalized Ratio 2.8; Prothrombin Time (Protime)PT. 29.1 SECONDS (11.7-14.9)
== END 2024-06-19 18:00 | disposition home or self-care (01) ==
LOC: LAB 08:11
PROVIDERS: PCP Internal Medicine; Referring Provider Internal Medicine Cardiovascular Disease; Visit Provider Internal Medicine Cardiovascular Disease
DX: Z79.01 Long term (current) use of anticoagulants; I48.19 Other persistent atrial fibrillation
CPT/HCPCS: 36415; 85610

== ENCOUNTER 2024-07-19 08:12 | Outpatient (RCR) | payer MEDICARE, OTHER, SELFPAY ==
[2024-06-19 22:28] VITALS: BMI 34.7
[2024-06-22 08:22] LABS: International Normalized Ratio 2.7; Prothrombin Time (Protime)PT. 28.2 SECONDS (11.7-14.9)
[2024-07-19 08:36] LABS: International Normalized Ratio 3.2; Prothrombin Time (Protime)PT. 32.6 SECONDS (11.7-14.9)
== END 2024-07-19 18:00 | disposition home or self-care (01) ==
LOC: LAB 08:12
PROVIDERS: PCP Internal Medicine; Referring Provider Internal Medicine Cardiovascular Disease; Visit Provider Internal Medicine Cardiovascular Disease
DX: Z79.01 Long term (current) use of anticoagulants; I48.19 Other persistent atrial fibrillation
CPT/HCPCS: 36415; 85610

== ENCOUNTER 2024-08-17 08:42 | Outpatient (RCR) | payer MEDICARE, OTHER, SELFPAY ==
[2024-07-21 03:43] VITALS: BMI 34.7
[2024-08-17 09:34] LABS: International Normalized Ratio 2.3; Prothrombin Time (Protime)PT. 25.4 SECONDS (11.7-14.9)
== END 2024-08-17 18:00 | disposition home or self-care (01) ==
LOC: LAB 08:42
PROVIDERS: PCP Internal Medicine; Referring Provider Internal Medicine Cardiovascular Disease; Visit Provider Internal Medicine Cardiovascular Disease
DX: Z79.01 Long term (current) use of anticoagulants; I48.19 Other persistent atrial fibrillation
CPT/HCPCS: 36415; 85610

== ENCOUNTER 2024-09-16 07:56 | Outpatient (RCR) | payer MEDICARE, OTHER, SELFPAY ==
[2024-08-20 21:01] VITALS: BMI 34.7
[2024-09-16 09:06] LABS: International Normalized Ratio 2.4; Prothrombin Time (Protime)PT. 27.1 SECONDS (11.7-14.9)
== END 2024-09-17 18:00 | disposition home or self-care (01) ==
LOC: LAB 07:56
PROVIDERS: PCP Internal Medicine; Referring Provider Internal Medicine Cardiovascular Disease; Visit Provider Internal Medicine Cardiovascular Disease
DX: Z79.01 Long term (current) use of anticoagulants; I48.19 Other persistent atrial fibrillation
CPT/HCPCS: 36415; 85610

== ENCOUNTER → 2024-10-16 | Outpatient (CLI) | payer MEDICARE, OTHER, SELFPAY ==
--- NOTE | 2024-10-16 09:53 | US_ITS ---
PROCEDURE: ABDOMEN LIMITED 10/16/2024 REASON FOR EXAM: FATTY LIVER COMPARISON: 10/14/2023 FINDINGS: Liver: Normal echogenicity and contour.No hepatic lesions identified.The portal vein is patent with hepatopetal flow. Size: 16.3 cm Gallbladder/biliary: No gallstones or gallbladder wall thickening.The common bile duct is normal in caliber. Pancreas: Visualized portions are unremarkable. Right kidney: Normal echogenicity and vascularity. No hydronephrosis. Size: 10.8 cm US/Abdomen Limited IMPRESSION: 1. No acute findings. [facility]
== END | disposition home or self-care (01) ==
LOC: US 09:52
PROVIDERS: PCP Internal Medicine; Referring Provider Internal Medicine; Visit Provider Internal Medicine
DX: K76.0 Fatty (change of) liver, not elsewhere classified (principal)
CPT/HCPCS: 76705

== ENCOUNTER → 2024-10-19 | Outpatient (CLI) | payer MEDICARE, OTHER, SELFPAY ==
--- NOTE | 2024-10-19 08:38 | CDU_ITS ---
Reason For Study Reason For Study: Carotid Stenosis Rt. Velocities/BP Lt. Velocities/BP Prox CCA 58.9/13.8 cm/sec. Prox CCA 99.7/23.0 cm/sec. Mid CCA 72.1/21.5 cm/sec. Mid CCA 74.4/22.8 cm/sec. Dist CCA 52.3/19.3 cm/sec. Dist CCA 58.2/11.0 cm/sec. Prox ICA 45.0/18.0 cm/sec. Prox ICA 32.5/13.9 cm/sec. Mid ICA 65.1/27.6 cm/sec. Mid ICA 63.3/18.0 cm/sec. Dist ICA 55.5/18.8 cm/sec. Dist ICA 46.3/20.7 cm/sec. Rt. ICA/CCA = 0.9. Lt. ICA/CCA = 0.9. Prox ECA 73.2/14.2 cm/sec. Prox ECA 54.4/10.0 cm/sec. Rt. Vert. 25.8/7.5 cm/sec. Lt. Vert. 28.4/11.9 cm/sec. Right Extracranial There is intimal thickening but no significant atherosclerotic plaque noted in the right common carotid artery. There is heterogeneous, irregular atherosclerotic plaque noted in the right internal carotid artery. There is intimal thickening but no significant atherosclerotic plaque noted in the right external carotid artery. The atherosclerotic plaque causes acoustic shadowing. Antegrade flow is noted in the right vertebral artery. Left Extracranial There is intimal thickening but no significant atherosclerotic plaque noted in the left common carotid artery. There is heterogeneous, irregular atherosclerotic plaque noted in the left internal carotid artery. The atherosclerotic plaque causes acoustic shadowing. There is heterogeneous, irregular atherosclerotic plaque noted in the left external carotid artery. Antegrade flow is noted in the left vertebral artery. Procedure Carotid Duplex 36722. This is a Carotid Duplex examination using B-mode, color flow and specral Doppler. Exam performed in department. VL/Carotid Duplex Ultrasound Interpretation Summary Mild (<50%) stenosis right extracranial internal carotid. Mild (<50%) stenosis left extracranial internal carotid. Patent and antegrade vertebrals bilaterally. Ordering Physician: Gertrudis Flowers Referring Physician: Gertrudis Flowers Performed By: Liya Velazquez RVT
== END | disposition home or self-care (01) ==
PROVIDERS: PCP Internal Medicine; Referring Provider Internal Medicine; Visit Provider Internal Medicine
DX: I65.23 Occlusion and stenosis of bilateral carotid arteries (principal)
CPT/HCPCS: 93880

== ENCOUNTER 2024-11-11 07:14 | Outpatient (RCR) | payer MEDICARE, OTHER, SELFPAY ==
[2024-10-18 21:41] VITALS: BMI 34.7
[2024-11-11 08:51] LABS: International Normalized Ratio 1.8; Prothrombin Time (Protime)PT. 21.3 SECONDS (11.7-14.9)
== END 2024-11-17 18:00 | disposition home or self-care (01) ==
LOC: LAB 07:14
PROVIDERS: PCP Internal Medicine; Referring Provider Internal Medicine Cardiovascular Disease; Visit Provider Internal Medicine Cardiovascular Disease
DX: Z79.01 Long term (current) use of anticoagulants; I48.19 Other persistent atrial fibrillation
CPT/HCPCS: 36415; 85610

== ENCOUNTER 2024-12-09 08:03 | Outpatient (RCR) | payer MEDICARE, OTHER, SELFPAY ==
[2024-11-17 20:30] VITALS: BMI 34.7
[2024-12-09 10:42] LABS: International Normalized Ratio 2.5; Prothrombin Time (Protime)PT. 27.8 SECONDS (11.7-14.9)
== END 2024-12-09 18:00 | disposition home or self-care (01) ==
LOC: LAB 08:03
PROVIDERS: PCP Internal Medicine; Referring Provider Internal Medicine Cardiovascular Disease; Visit Provider Internal Medicine Cardiovascular Disease
DX: Z79.01 Long term (current) use of anticoagulants; I48.19 Other persistent atrial fibrillation
CPT/HCPCS: 36415; 85610

== ENCOUNTER 2025-02-02 07:40 | Outpatient (RCR) | payer MEDICARE, OTHER, SELFPAY ==
[2024-12-18 20:32] VITALS: BMI 34.7
[2025-02-02 08:37] LABS: Prothrombin Time (Protime)PT. 31.6 SECONDS (11.7-14.9)
== END 2025-02-17 20:47 | disposition home or self-care (01) ==
LOC: LAB 07:40
PROVIDERS: PCP Internal Medicine; Referring Provider Internal Medicine Cardiovascular Disease; Visit Provider Internal Medicine Cardiovascular Disease
DX: Z79.01 Long term (current) use of anticoagulants (principal); I48.19 Other persistent atrial fibrillation
CPT/HCPCS: 36415; 85610

== ENCOUNTER → 2025-02-04 | Outpatient (CLI) | payer MEDICARE, OTHER, SELFPAY ==
--- NOTE | 2025-02-04 08:12 | ECHOD_ITS ---
Reason For Study Reason For Study: MURMUR, EVALUATE Procedure This was a 2D Doppler, Color Flow transthoracic echocardiogram. Exam performed in department. Left Ventricle Normal LV size. Left ventricular systolic function is normal. The left ventricular ejection fraction is 60 %. No regional wall motion abnormalities noted. Right Ventricle Normal RV size. Normal systolic function. Atria The left atrium is moderately enlarged. The right atrium is moderately enlarged. Mitral Valve There is mild to moderate mitral annular calcification. Moderate (2+) eccentric mitral valve insufficiency. Aortic Valve Trisinus/trileaflet aortic valve. Moderate focal aortic valve calcification. Peak aortic valve gradient 56 mmHg. Mean aortic valve gradient 33 mmHg. Moderate aortic stenosis. Mild (1+) aortic valve insufficiency. Pulmonic Valve Normal pulmonic valve. Great Vessels Normal aortic root. The pulmonary artery is normal size. Inferior vena cava collapse with respiration. Pericardium/Pleural No pericardial effusion. MMode/2D Measurements & Calculations LVIDd: 4.8 cm IVSd: 1.2 cm LVOT diam: 2.0 cm LVIDs: 3.3 cm LVPWd: 1.2 cm LVOT area: 3.2 cm2 RVDd: 3.4 cm FS: 30.2 % Ao root diam: 3.3 cm LAV(MOD-bp): 84.4 ml LVAd ap4: 26.0 cm2 LAV(MOD-bp) Indexed: 38.8 ml/m2 LVLd ap4: 7.3 cm LAV(MOD-sp2): 74.5 ml EDV(MOD-sp4): 76.8 ml LAV(MOD-sp4): 79.0 ml EDV(sp4-el): 78.3 ml LVAs ap4: 15.4 cm2 LVLs ap4: 6.6 cm ESV(MOD-sp4): 30.3 ml ESV(sp4-el): 30.2 ml EF(MOD-sp4): 60.6 % EF(sp4-el): 61.4 % SV(MOD-sp4): 46.5 ml SV(sp4-el): 48.1 ml LA A4 area: 26.8 cm2 SI(MOD-sp4): 21.4 ml/m2 LA dimension(2D): 4.1 cm RA A4 area: 24.8 cm2 TAPSE: 1.8 cm Doppler Measurements & Calculations MV E max ann marie: 116.8 cm/sec Ao V2 max: 375.5 cm/sec AI max ann marie: 328.8 cm/sec Ao max P.5 mmHg AI max P.2 mmHg Ao V2 mean: 274.3 cm/sec Ao mean P.5 mmHg AI dec slope: 139.7 cm/sec2 Ao V2 VTI: 95.4 cm AI P1/2t: 689.5 msec AV (velocity ratio): 0.20 ISAIAH(I,D): 0.64 cm2 ISAIAH(V,D): 0.64 cm2 LV V1 max: 75.6 cm/sec SV(LVOT): 60.9 ml PA V2 max: 147.5 cm/sec LV V1 max P.3 mmHg LV V1 mean P.2 mmHg LV V1 mean: 51.8 cm/sec LV V1 VTI: 19.2 cm TR max ann marie: 275.8 cm/sec TR max P.4 mmHg ECHO/Echo Complete Interpretation Summary Normal LV size. Left ventricular systolic function is normal. The left ventricular ejection fraction is 60 %. The left atrium is moderately enlarged. The right atrium is moderately enlarged. Moderate (2+) eccentric mitral valve insufficiency. Moderate aortic stenosis. Mild (1+) aortic valve insufficiency. Mean aortic valve gradient 33 mmHg. Compared to the previous the aortic valve gradient is worse. Ordering Physician: Derian Spangler Referring Physician: JULIAN MENDENHALL Performed By: Loreto Fontana RDCS
== END | disposition home or self-care (01) ==
LOC: CVS 07:48
PROVIDERS: PCP Internal Medicine; Referring Provider Nurse Practitioner Family; Visit Provider Nurse Practitioner Family
DX: I35.0 Nonrheumatic aortic (valve) stenosis (principal); I48.19 Other persistent atrial fibrillation
CPT/HCPCS: 93306

== ENCOUNTER 2025-03-02 07:46 | Outpatient (RCR) | payer MEDICARE, OTHER, SELFPAY ==
[2025-03-02 08:43] LABS: Prothrombin Time (Protime)PT. 29.0 SECONDS (11.7-14.9)
== END 2025-03-02 18:00 | disposition home or self-care (01) ==
LOC: LAB 07:46
PROVIDERS: PCP Internal Medicine; Referring Provider Internal Medicine Cardiovascular Disease; Visit Provider Internal Medicine Cardiovascular Disease
DX: Z79.01 Long term (current) use of anticoagulants (principal); I48.19 Other persistent atrial fibrillation
CPT/HCPCS: 36415; 85610

== ENCOUNTER 2025-03-30 07:49 | Outpatient (RCR) | payer MEDICARE, OTHER, SELFPAY ==
[2025-03-30 09:28] LABS: Prothrombin Time (Protime)PT. 29.6 SECONDS (11.7-14.9)
== END 2025-04-19 18:00 | disposition home or self-care (01) ==
LOC: LAB 07:49
PROVIDERS: PCP Internal Medicine; Referring Provider Internal Medicine Cardiovascular Disease; Visit Provider Internal Medicine Cardiovascular Disease
DX: Z79.01 Long term (current) use of anticoagulants (principal); I48.19 Other persistent atrial fibrillation
CPT/HCPCS: 36415; 85610

== ENCOUNTER 2025-04-27 11:29 | Outpatient (RCR) | payer MEDICARE, OTHER, SELFPAY ==
[2025-04-27 13:48] LABS: Prothrombin Time (Protime)PT. 27.5 SECONDS (11.7-14.9)
== END 2025-04-27 18:00 | disposition home or self-care (01) ==
LOC: LAB 11:29
PROVIDERS: PCP Internal Medicine; Referring Provider Internal Medicine Cardiovascular Disease; Visit Provider Internal Medicine Cardiovascular Disease
DX: Z79.01 Long term (current) use of anticoagulants (principal)
CPT/HCPCS: 36415; 85610

== ENCOUNTER 2025-05-26 09:39 | Outpatient (RCR) | payer MEDICARE, OTHER, SELFPAY ==
[2025-05-26 10:27] LABS: Prothrombin Time (Protime)PT. 30.1 SECONDS (11.7-14.9)
== END 2025-06-18 18:00 | disposition home or self-care (01) ==
LOC: LAB 09:39
PROVIDERS: PCP Internal Medicine; Referring Provider Internal Medicine Cardiovascular Disease; Visit Provider Internal Medicine Cardiovascular Disease
DX: Z79.01 Long term (current) use of anticoagulants (principal)
CPT/HCPCS: 36415; 85610

== ENCOUNTER 2025-06-23 11:10 | Outpatient (RCR) | payer MEDICARE, OTHER, SELFPAY ==
[2025-06-23 12:16] LABS: Prothrombin Time (Protime)PT. 27.4 SECONDS (11.7-14.9)
== END 2025-06-23 18:00 | disposition home or self-care (01) ==
LOC: LAB 11:10
PROVIDERS: PCP Internal Medicine; Referring Provider Internal Medicine Cardiovascular Disease; Visit Provider Internal Medicine Cardiovascular Disease
DX: Z79.01 Long term (current) use of anticoagulants (principal)
CPT/HCPCS: 36415; 85610